=== PATIENT | female | born 1960 | race Caucasian/White ===

== ENCOUNTER → 2016-06-23 | Outpatient (CLI) | payer OTHER ==
[~2016-06-23] MED LIST: ASCO10003 PO; ATV5X PO; BND25CL PO; CELE1CAP28 PO; CHOL2000 PO; CLC100 PO; COEN1CAP37 PO; DIGO0.1219 PO; EFF/375 PO; FENT75DI2; FNTTP50 TD; GABA1CAP4 PO; HYDR-4383 PO; IPRA1AER2 INH; KRIL1000 PO; LACT1CAP6 PO; MAGNSOL13 PO; METO50TA7 PO; MISCCAP80 PO; MULT1CAP7 PO; MULTTAB58 PO; ONDA-63 PO; OSIM80TA PO; OXYC-164 PO; THY/30 PO; TMB100 PO; VENL150C56 PO; bumex; digoxin
--- NOTE | 2016-06-23 14:27 | DIAGNOSTIC IMAGING REPORT ---
PET/CT CLINICAL HISTORY: Non-small cell lung cancer. TECHNIQUE: A PET/CT was performed from the skull base through the upper thighs following intravenous injection of 14.49 mCi of F 18 FDG IV. The injection was performed at 10:25 AM on June 23, 2016 and imaging began at 11:51 AM on June 23, 2016. Unenhanced CT was performed for attenuation correction purposes and anatomic localization. COMPARISON STUDY: PET/CT March 15, 2016. FINDINGS: Head and neck: Several brain metastases are better depicted on MRI of the brain dated April 28, 2016. There is no suspicious FDG uptake within the cervical lymph nodes. A few prominent bilateral cervical lymph nodes are unchanged. Chest: Postsurgical findings within the left hemithorax with open left chest wall are again noted. Marked multifocal FDG uptake within the left pleura is similar to prior exam with an SUV max of approximately 10. Pleural thickening is unchanged since exam of March 15, 2016. Trace pleural fluid is similar to prior exam as well. A cavity within the left hemithorax is unchanged. Innumerable FDG avid right lung nodules are noted. The majority of these are unchanged since PET/CT of March 15, 2016. An index right middle lobe nodule shown on image 85 measures 1.3 cm. This is unchanged. An index right upper lobe nodule shown on image 64 measures 1.3 cm. It previously measured 1.2 cm. Mild FDG uptake within these nodules is similar to prior exam. A few additional nodules have slightly increased in size since prior exam. The SUV max for the nodule since 3.2, as before. Several mildly enlarged left axillary lymph nodes which demonstrate mild FDG uptake are similar to prior exam. Abdomen and Pelvis: The previously described left paraaortic lymph node shown on image 121 is similar size to prior exam. This has minimal FDG uptake. An IVC filter is in place. There are punctate left renal calculi. There is no evidence for a bowel obstruction. Musculoskeletal: A sclerotic FDG avid lesion within the proximal right femur is similar to prior exam with an SUV max of 6.5. No new skeletal metastases are identified. IMPRESSION: Minimal change since PET/CT of March 15, 2016. Minimal increase in size of a few right lung metastases since prior exam. Otherwise, no significant change. Stable postoperative appearance within the left hemithorax, as described above. No significant change in skeletal metastatic disease. Electronically signed by: Cecilio Cunningham M.D. 06/23/2016 2:25 PM Dictated Date/Time: 06/23/2016 1:46 PM
== END | disposition home or self-care (01) ==
LOC: C.PET 10:02
PROVIDERS: ATTEND Internal Medicine Hematology & Oncology
DX: C34.12 Malignant neoplasm of upper lobe, left bronchus or lung (principal)

== ENCOUNTER → 2016-06-29 | Outpatient (CLI) | payer OTHER ==
[2016-06-29 14:47] VITALS: BP 108/65; PULSE 71; TEMP 36.9; O2SAT 91
--- NOTE | 2016-06-29 17:29 | Radiation Oncology Follow-Up ---
Radiation Oncology Follow-Up Date of Visit Jun 29, 2016. Reason For Visit Annual follow-up Radiation Completion Date finished 04-12-14 to chest, and gamma knife to brain 04-01-15 Diagnosis (1) Lung cancer Status: Chronic Onset Date: 10/22/2013 Histology Subtype: adenocarcinoma Stage: IV Permanent Comment: 1. Hemoptysis 2. CT of chest 10/12/2013 showing a left suprahilar mass extending into the left hilum 3. Status post fiberoptic bronchoscopy 10/22/2013 showing complete obstruction of the left upper lobe bronchus, biopsy showing poorly differentiated adenocarcinoma, clinical stage [id number] 4. Patient chose homeopathic therapy and did not take Tarceva 5. Status post bronchoscopy and left thoracotomy, drainage of pleural fluid and decortication with talc pleurodesis 01/09/2014 6. Initiation of combined radiation and chemotherapy. Radiation began 2013 received 11 fractions. She received 3 weekly cycles of Taxol carboplatin. 7. Admission due to lung abscess status postthoracotomy, decortication, drainage of abscess above the diaphragm on 02/18/2014 8. Recovery and then reinitiation and completion of combined radiation and chemotherapy. Radiation completed 04/12/2014 received 7000 cG 9. Recurrent infections of abscess status post left thoracotomy with resection of ribs 8 and 9 and creation of open thoracotomy wound with skin flap, partial pulmonary decortication 09/16/2014 10. Brain metastasis 11. Status post gamma knife 04/01/2015 at [facility] 12. Systemic treatment with Tarceva, treatment stopped due to side effects 13. Systemic chemotherapy with Tagrisso Last Edited By: Asmita Guzman on Jun 29, 2016 17:13 History of Present Illness 55-year-old white female well known to our office from prior treatment. Initial treatment reviewed as above. More recently she was started on Tarceva. She began the medication 07/17/2014. She developed hemoptysis which steadily progressed. She developed mouth sores. She also had swelling of her hands with open wounds on her fingers. The medication was stopped on 08/05/2014. She unfortunately continued to have hemoptysis this will be mild streaking to dark red in color. She was seen by Dr. Collins and underwent a bronchoscopy 2014. There was complete occlusion of the left upper lobe bronchus just after the takeoff of the main upper lobe bronchus. Airway was occluded with scar tissue and friable malignancy. Small pinpoint hole could be noted to the lingular segment of the left upper lobe. Dr. Collins performed cryo-probe therapy. Biopsies were taken prior to the treatment. These biopsies were benign. Over the past week she has steadily felt increasing fatigue. The hemoptysis continues and she called Dr. Mandujano's office. He advised an evaluation at the emergency room. She was found to be anemic with a hemoglobin of 7.6. She was admitted for further observation and treatment. She has been transfused 2 units of blood. She states that she does feel improved. She is feeling stronger and the hemoptysis is less. Dr. Mandujano had sent her to [place] for an evaluation by Dr. Rivas. She was seen on August 27. From information obtained by the patient she stated he did not feel that she could undergo surgery due to the proximity of the mass to critical structures. On her last visit she had stated that she had not had follow-up MRI of the brain. This has been canceled and rescheduled on several occasions. Arrangements were made for her to have this done under anesthesia due to her severe claustrophobia. On 08/23/2014 she presented for her MRI and this was canceled. She stated that anesthesiology is concerned about aspiration. She was transferred to [facility] in [place]. She was seen by Dr. Harper. On 09/16/2014 he performed a bronchoscopy. This was followed by a left thoracotomy with resection of ribs 8 and 9, and creation of an open thoracotomy wound with skin flap. Partial pulmonary decortication. With undergoing this procedure she has had steady improvement in the cough with purulent sputum. Temperatures have remained down. She does continue to have drainage from the open wound site. She continues to be followed closely by Dr. Mandujano. There has been discussion of restart of Tarceva. She underwent recent PET scanning for restaging. She'll be having an MRI of the brain on Tuesday. She did restart systemic chemotherapy with Tarceva. This was poorly tolerated. It caused severe fatigue. Her recheck MRI showed metastatic lesions of the brain. She was referred to [facility]. On 04/01/2015 she had gamma knife treatment. She then took dexamethasone for 15 days following the treatment. She tolerated this very well area. She has had continue follow-up through Dr. Mandujano's office. She had a PET scan performed today and the results are pending. She also had a recheck MRI one week ago. She stated that this had shown some mild progression. A copy of the disc has been forwarded to [facility]. She is awaiting their recommendations. This was reviewed. And decision was that she did not need further radiation therapy to the brain at this time. Interim History Over this past year she is continue follow-up with medical oncology. She has had mixed responses on her follow-up PET scans. She is currently on Tagrisso 80 mg. She takes this every 3 days. She did not tolerate taking this daily. She developed sores on the inside of her mouth as well as on her lips in the corner of her mouth. These are currently stable. She has not developed any increase in respiratory symptoms. She has not developed any increase in neurologic symptoms. She is followed at [facility] for the metastatic brain disease. She states that she has MRIs of the brain every 2 months. There have been no changes for which repeat gamma knife therapy has been suggested. The most recent MRI was on 04/28/2016. Her appetite is good. She has had a 17 pound weight gain over the past year. Allergies Coded Allergies: No Known Allergies (Unverified , 11/18/14) Home Medications Scheduled Ascorbic Acid (Vitamin C), 2,000 MG PO DAILY Celecoxib (Celecoxib), 100 MG PO BID Cholecalciferol (Vitamin D3), 6,000 INTER.UNIT PO DAILY Coenzyme Q10 (Ubidecarenone) (Co Q-10), 400 MG PO DAILY Docusate Sodium (Docusate Sodium), 100 MG PO BID Fentanyl (Duragesic), 50 MCG TD [id number] Flecainide Acetate (Flecainide Acetate), 150 MG PO Q12 Gabapentin (Gabapentin), 600 MG PO TID Hydrocodone/Acetaminophen ([place] 10/325 Tab), 2 TABS PO Q4 Krill Oil (Krill Oil), 2 CAP PO DAILY Lactobacillus (Probiotic), 1 CAP PO TID Lorazepam (Lorazepam), 2 MG PO BID Ondansetron (Ondansetron HCl), 8 MG PO Q6H Osimertinib Mesylate (Tagrisso), 80 MG PO DIRECTED Oxycodone Hcl (Oxycodone Hcl), 30 MG PO UD Thyroid ([place] Thyroid), 60 MG PO DAILY Venlafaxine Hcl (Effexor Extended Rel), 1 CAP PO DAILY [Magnesium Citrate], 625 MG PO DAILY [digoxin], DAILY Scheduled PRN Diphenhydramine HCl (Diphenhydramine HCl), 50 MG PO HS PRN for Sleep Ipratropium-Albuterol (Combivent Respimat), 1 PUFF INH QID PRN for SOB/Wheezing Miscellaneous Medications [bumex] Review of Systems Gastrointestinal: Symptoms: Nausea, Constipation, Diarrhea GI Comments: alternates between diarrhea and constipation Oral: Symptoms: Mild Soreness Other Oral Symptoms: " small cuts in mouth from the oral chemo " Respiratory: Symptoms: SOB With Exertion Other Respiratory: has an oxygenator at home for sleep and as needed att home Urinary: Symptoms: Nocturia Comments: nocturia 1 - 2 times Skin: Other Skin Symptoms: "has a dry dressing over hole in chest under left arm ", Physical Exam Vital Signs Date Time Temp Pulse Resp B/P Pulse Ox O2 Delivery O2 Flow Rate FiO2 06/29/16 14:47 36.9 71 20 108/65 91 Pain: Side: Bilateral Patient Pain Scale: 0 - 10 Initial Pain Intensity: 1.0 Fatigue: None General Appearance: no apparent distress Eyes: normal inspection, EOMI ENT: normal ENT inspection, hearing grossly normal, + pertinent finding ( stomatitis and angular chelitis) Neck: no adenopathy, thyroid normal Respiratory/Chest: no respiratory distress, no accessory muscle use, + decreased breath sounds, + plerual rub Cardiovascular: regular rate, rhythm, no gallop, no murmur, + pertinent finding (intact dressing in the left and posterior lower thorax, without drainage) Extremities: no pedal edema Neurologic/Psychiatric: no motor/sensory deficits, alert, normal mood/affect Skin: warm/dry Lymphatic: no adenopathy Laboratory Studies Test 06/29/16 16:00 White Blood Count 7.48 K/uL (4.8-10.8) Red Blood Count 4.09 M/uL (4.2-5.4) Hemoglobin 10.1 g/dL (12.0-16.0) Hematocrit 33.3 % (37-47) Mean Corpuscular Volume 81.4 fL (80-100) Mean Corpuscular Hemoglobin 24.7 pg (25-34) Mean Corpuscular Hemoglobin Concent 30.3 g/dl (32-36) Platelet Count 327 K/uL (130-400) Mean Platelet Volume 9.8 fL (7.4-10.4) Neutrophils (%) (Auto) 67.5 % Lymphocytes (%) (Auto) 20.5 % Monocytes (%) (Auto) 7.5 % Eosinophils (%) (Auto) 4.1 % Basophils (%) (Auto) 0.3 % Neutrophils # (Auto) 5.05 K/uL (1.4-6.5) Lymphocytes # (Auto) 1.53 K/uL (1.2-3.4) Monocytes # (Auto) 0.56 K/uL (0.11-0.59) Eosinophils # (Auto) 0.31 K/uL (0-0.5) Basophils # (Auto) 0.02 K/uL (0-0.2) RDW Standard Deviation 49.8 fL (36.4-46.3) RDW Coefficient of Variation 16.5 % (11.5-14.5) Immature Granulocyte % (Auto) 0.1 % Immature Granulocyte # (Auto) 0.01 K/uL (0.00-0.02) Sodium Level 139 mmol/L (136-145) Potassium Level 4.5 mmol/L (3.5-5.1) Chloride Level 99 mmol/L (98-107) Carbon Dioxide Level 33 mmol/L (21-32) Anion Gap 7.0 mmol/L (3-11) Blood Urea Nitrogen 15 mg/dl (7-18) Creatinine 0.70 mg/dl (0.60-1.20) Est Creatinine Clear Calc Drug Dose 102.4 ml/min Estimated GFR () 114.6 Estimated GFR (Non- 98.9 BUN/Creatinine Ratio 22.0 (10-20) Random Glucose 95 mg/dl (70-99) Calcium Level 8.8 mg/dl (8.5-10.1) Total Bilirubin 0.2 mg/dl (0.2-1) Aspartate Amino Transferase (AST) 11 U/L (15-37) Alanine Aminotransferase (ALT) 17 U/L (12-78) Alkaline Phosphatase 137 U/L (45-117) Total Protein 7.9 gm/dl (6.4-8.2) Albumin 3.2 gm/dl (3.4-5.0) Globulin 4.7 gm/dl (2.5-4.0) Albumin/Globulin Ratio 0.7 (0.9-2) Additional Studies PET/CT CLINICAL HISTORY: Non-small cell lung cancer. TECHNIQUE: A PET/CT was performed from the skull base through the upper thighs following intravenous injection of 14.49 mCi of F 18 FDG IV. The injection was performed at 10:25 AM on June 23, 2016 and imaging began at 11:51 AM on June 23, 2016. Unenhanced CT was performed for attenuation correction purposes and anatomic localization. COMPARISON STUDY: PET/CT March 15, 2016. FINDINGS: Head and neck: Several brain metastases are better depicted on MRI of the brain dated April 28, 2016. There is no suspicious FDG uptake within the cervical lymph nodes. A few prominent bilateral cervical lymph nodes are unchanged. Chest: Postsurgical findings within the left hemithorax with open left chest wall are again noted. Marked multifocal FDG uptake within the left pleura is similar to prior exam with an SUV max of approximately 10. Pleural thickening is unchanged since exam of March 15, 2016. Trace pleural fluid is similar to prior exam as well. A cavity within the left hemithorax is unchanged. Innumerable FDG avid right lung nodules are noted. The majority of these are unchanged since PET/CT of March 15, 2016. An index right middle lobe nodule shown on image 85 measures 1.3 cm. This is unchanged. An index right upper lobe nodule shown on image 64 measures 1.3 cm. It previously measured 1.2 cm. Mild FDG uptake within these nodules is similar to prior exam. A few additional nodules have slightly increased in size since prior exam. The SUV max for the nodule since 3.2, as before. Several mildly enlarged left axillary lymph nodes which demonstrate mild FDG uptake are similar to prior exam. Abdomen and Pelvis: The previously described left paraaortic lymph node shown on image 121 is similar size to prior exam. This has minimal FDG uptake. An IVC filter is in place. There are punctate left renal calculi. There is no evidence for a bowel obstruction. Musculoskeletal: A sclerotic FDG avid lesion within the proximal right femur is similar to prior exam with an SUV max of 6.5. No new skeletal metastases are identified. IMPRESSION: Minimal change since PET/CT of March 15, 2016. Minimal increase in size of a few right lung metastases since prior exam. Otherwise, no significant change. Stable postoperative appearance within the left hemithorax, as described above. No significant change in skeletal metastatic disease. Electronically signed by: Cecilio Cunningham M.D. 06/23/2016 2:25 PM Dictated Date/Time: 06/23/2016 1:46 PM MRI OF THE BRAIN WITHOUT AND WITH IV CONTRAST CLINICAL HISTORY: Metastatic lung carcinoma. Gamma knife therapy. COMPARISON STUDY: MRI of the brain January 19, 2016 TECHNIQUE: Utilizing a 1.5 Olive magnet and dedicated coil, multiplanar, multiecho imaging of the brain was performed pre and postcontrast administration. IV administration of 10 mL of Gadavist contrast was uneventful. FINDINGS: There are no areas of restricted diffusion. No acute intracranial hemorrhage is present. Ventricular system is stable. The basilar cisterns are patent. There are no extra-axial collections. Flow-voids for the major intracranial vessels are present. Multiple supratentorial and infratentorial ring-enhancing parenchymal lesions are again noted. No new lesions are identified when compared to exam of January 19, 2016. The largest lesion within the right cerebellar hemisphere measures 1.6 cm on this exam. It previously measured 1.7 cm. Associated vasogenic edema has slightly improved. A 0.6 cm lesion within the right cerebellar hemisphere shown on axial image 17 has slightly decreased in size since prior exam. It previously measured 0.7 cm. A lesion within the left cerebellar hemisphere now measures 1.3 cm. It previously measured 1.2 cm. Vasogenic edema has slightly increased. A 1.1 cm left temporal lobe lesion shown on axial image 10 has slightly increased in size since prior exam. It previously measured 1 cm. A 0.8 cm left frontal lobe lesion shown on image 14 has slightly increased in size since prior exam. A 0.7 cm right frontal lobe lesion shown on image 16 has slightly increased in size. Calvarial signal is maintained. This study is mildly compromised by motion artifact. IMPRESSION: Findings suggestive of a mixed treatment response in supratentorial and infratentorial metastases since MRI of January 19, 2016. Two metastases within the right cerebellar hemisphere have decreased in size, enhancement and associated vasogenic edema since prior exam. The remainder of the metastases have slightly increased in size and associated vasogenic edema has mildly increased since prior exam. Electronically signed by: Cecilio Cunningham M.D. 04/28/2016 2:45 PM Assessment & Plan Plan: Continue regular follow-up with medical oncology. She'll be seeing Dr. Townsend tomorrow. She can further review the PET CT findings with him. She stated that she will be due for her recheck MRI of the brain. She has a order for this from Dr. Campbell at [facility]. I've asked her to bring that order with her when she sees Dr. Townsend tomorrow. There are office may facilitate ordering the study. In the past there have been discussion of whole brain therapy. She is pleased to continue the follow-up with [facility] and recheck MRIs. She prefers gamma knife therapy should there be any lesions in need of treatment. We asked her to return to our office in 1 year. She may call if she has any questions or concerns in the interim. She is going to try harder to watch her diet due to the noted weight gain. She may also return to our office if recommended by Dr. Campbell or Dr. Townsend. Total Time In Follow-Up I spent 25 minutes speaking to the patient performing examination. I spent 15 minutes reviewing information in completing this note. Copy To Daniel Campbell MD; Sridhar Townsend D.O.; Kiley Morton MD Problem Qualifiers (1) Lung cancer: Laterality: left Lung location: upper lobe of lung Qualified Codes: C34.12 - Malignant neoplasm of upper lobe, left bronchus or lung
== END | disposition home or self-care (01) ==
LOC: C.ONC 14:41
PROVIDERS: ATTEND Radiology Radiation Oncology
DX: Z08 Encounter for follow-up examination after completed treatment for malignant neoplasm (principal); Z92.3 Personal history of irradiation; Z85.118 Personal history of other malignant neoplasm of bronchus and lung

== ENCOUNTER → 2016-10-08 | Outpatient (CLI) | payer OTHER ==
[~2016-10-08] MED LIST changes: -BND25CL PO; +DIPH25CA48 PO; -EFF/375 PO; -FENT75DI2; -METO50TA7 PO; -MULT1CAP7 PO
[2016-10-08 19:38] LABS: BASO % 0.3 %; BASO ABS # 0.02 K/uL (0-0.2); COMPLETE YES; EOS % 4.5 %; HEMATOCRIT 31.8 % (37-47); IG% 0.1 %; LYMPH % 17.1 %; LYMPH ABS # 1.22 K/uL (1.2-3.4); MEAN CELL VOLUME 81.1 fL (80-100); MEAN CORPUSCULAR HGB CONC 29.6 g/dl (32-36); MEAN PLATELET VOLUME 9.5 fL (7.4-10.4); MONO % 6.6 %; NEUT % 71.4 %; PLATELET COUNT 391 K/uL (130-400); RED BLOOD COUNT 3.92 M/uL (4.2-5.4); WHITE BLOOD COUNT 7.13 K/uL (4.8-10.8)
[2016-10-08 20:04] LABS: ALT/SGPT 21 U/L (12-78); AST/SGOT 12 U/L (15-37); BLOOD UREA NITROGEN 12 mg/dl (7-18); BUN/CREATININE RATIO 17.4 (10-20); CALCIUM 8.5 mg/dl (8.5-10.1); CARBON DIOXIDE 32 mmol/L (21-32); CHLORIDE 104 mmol/L (98-107); GLUCOSE 85 mg/dl (70-99); POTASSIUM 4.3 mmol/L (3.5-5.1); SODIUM 141 mmol/L (136-145)
[2016-10-08 20:06] LABS: ALB/GLOB RATIO 0.7 (0.9-2); ALKALINE PHOSPHATASE 158 U/L (45-117)
== END | disposition home or self-care (01) ==
LOC: C.LAB 19:02
PROVIDERS: ATTEND Internal Medicine Hematology & Oncology
DX: T14.8 Other injury of unspecified body region (principal); X58.XXXA Exposure to other specified factors, initial encounter

== ENCOUNTER → 2016-10-11 | Outpatient (CLI) | payer OTHER ==
--- NOTE | 2016-10-11 16:10 | DIAGNOSTIC IMAGING REPORT ---
LEFT HAND 3 VIEWS CLINICAL HISTORY: Left thumb pain. FINDINGS: 3 views of left hand are obtained. No prior studies are available for comparison at the time of dictation. The skeletal structures are osteopenic. No fracture is seen. There is mild osteoarthritic change present at the first carpometacarpal joint. Minimal osteoarthritic change is seen involving the interphalangeal joints. The overlying soft tissues are within normal limits. IMPRESSION: 1. No acute bony abnormality is seen in the left hand. 2. Mild arthritic change as above, greatest at the first carpometacarpal articulation. Electronically signed by: Darian Elder M.D. 10/11/2016 4:09 PM Dictated Date/Time: 10/11/2016 4:07 PM
== END | disposition home or self-care (01) ==
LOC: C.RAD 15:42
PROVIDERS: ATTEND Internal Medicine Hematology & Oncology
DX: C34.12 Malignant neoplasm of upper lobe, left bronchus or lung (principal); M79.645 Pain in left finger(s)

== ENCOUNTER → 2016-10-27 | Outpatient (CLI) | payer OTHER ==
--- NOTE | 2016-10-27 10:48 | DIAGNOSTIC IMAGING REPORT ---
PET/CT HISTORY: Lung carcinoma NON SMALL CELL LUNG CANCER TECHNIQUE: PET/CT was performed from the base of the skull through the pelvis following the intravenous administration of 15.4 mCi of F18-FDG. Non-contrast CT imaging was performed over the same range without breath-hold for attenuation correction of PET images and anatomic correlation, but not for primary interpretation as it is not of standard diagnostic quality. CT DOSE: COMPARISON: 06/23/2016 FINDINGS: HEAD AND NECK: There is no FDG-avid disease or significant lymphadenopathy in the imaged portions of the head and the neck. CHEST: Postoperative changes left lung base are stable. Large open wound channel is again noted again appear unchanged. Diffuse nodularity throughout the right hemithorax is slightly progressive primarily in the mid to upper lung regions. A sample sentinel node in the right upper lobe has gone from 1. 321.5 cm. SUV characteristics are similar. There are several small additional nodules on the right pulmonary apical region. Right middle lobe nodular density is increased from 1. 321.5 cm. All nodules show a moderate level of activity which is unchanged. There has been of very subtle increase in metabolic activity adjacent to the wound channel left lung base SUV characteristics of increased from 4 to approximately 8 area a correlate of change in the few CT, however is not appreciated. Abdomen/pelvis: Physiologic activity within the gastrointestinal and genitourinary tracts. Physiologic activity within the urinary bladder. Nonobstructive bowel pattern. MUSCULOSKELETAL: No change in the focus of increased activity proximal right femur IMPRESSION: 1. Slightly progressive disease involving the right hemithorax and to a lesser extent left base. 2. Nodularity of the right hemithorax has shown a slight progression in number as well as size, although metabolic activity characteristics are similar. 3. Slight increase in metabolic activity at the margins of the open wound channel left lung base. 4. All remaining components of the study are stable Electronically signed by: Jerry Resendiz M.D. 10/27/2016 10:46 AM Dictated Date/Time: 10/27/2016 10:31 AM
== END | disposition home or self-care (01) ==
LOC: C.PET 08:17
PROVIDERS: ATTEND Internal Medicine Hematology & Oncology
DX: C34.12 Malignant neoplasm of upper lobe, left bronchus or lung (principal)

== ENCOUNTER → 2016-11-18 | Outpatient (CLI) | payer OTHER ==
[~2016-11-18] MED LIST changes: +BND25CL PO; -DIPH25CA48 PO
--- NOTE | 2016-11-18 17:09 | DIAGNOSTIC IMAGING REPORT ---
WHOLE-BODY NUCLEAR BONE SCAN CLINICAL HISTORY: Non-small cell lung cancer. COMPARISON STUDY: PET/CT dated 10/27/2016. TECHNIQUE: Three hours following the IV administration of 27.2 mCi of technetium 99m MDP, whole body nuclear bone scan was performed in the anterior and posterior projections. FINDINGS: There is is a large focus of abnormal tracer deposition identified in the right proximal femur. This corresponds to a large osteoblastic metastasis seen by PET. There is a small focus of activity identified in the left femoral diaphysis. This is also consistent with bony metastatic disease. Increased activity within left posterior ribs is also likely related to metastatic disease. Typically degenerative uptake is identified in the shoulders, knees, and feet. Activity is identified in the ankles, left significantly greater than right. Mild anterior degenerative activity is seen in the thoracic spine. There is mild thoracic scoliosis. Asymmetric activity in the sacroiliac joints likely corresponds to significant sclerotic degenerative change when correlated with the CT images. A photopenic defect identified involving the left posterior ribs is likely on a postoperative basis when correlated with the CT findings. There is expected excreted activity within the renal collecting system and bladder. IMPRESSION: 1. There are metastatic lesions identified in the right proximal femur and the left mid femur. 2. Postoperative change and bony involvement is also suggested in the left posterior ribs. 3. There is significantly asymmetric activity in the left ankle is compared to the right. This likely corresponds to degenerative change. Consider radiographic correlation if there is concern for metastatic involvement. Electronically signed by: Darian Elder M.D. 11/18/2016 5:07 PM Dictated Date/Time: 11/18/2016 4:59 PM
== END | disposition home or self-care (01) ==
LOC: C.NUCL 13:00
PROVIDERS: ATTEND Internal Medicine Hematology & Oncology
DX: C34.12 Malignant neoplasm of upper lobe, left bronchus or lung (principal); C79.51 Secondary malignant neoplasm of bone

== ENCOUNTER → 2016-11-23 | Outpatient (CLI) | payer OTHER ==
--- NOTE | 2016-11-23 15:52 | DIAGNOSTIC IMAGING REPORT ---
RIGHT FOOT MIN 3 VIEWS ROUTINE CLINICAL HISTORY: M79.609 M25.572 M79.671 Right pain COMPARISON: None. DISCUSSION: Small heel spur. No acute bony abnormality. No evidence for acute fracture or dislocation. Small heel spur. There is no evidence for soft tissue swelling. IMPRESSION: Small heel spur. Otherwise negative study. The above report was generated using voice recognition software. It may contain grammatical, syntax or spelling errors. Electronically signed by: Jerry Resendiz M.D. 11/23/2016 3:51 PM Dictated Date/Time: 11/23/2016 3:49 PM
--- NOTE | 2016-11-23 15:54 | DIAGNOSTIC IMAGING REPORT ---
LEFT ANKLE MIN 3 VIEWS ROUTINE CLINICAL HISTORY: Left ankle pain. Lung cancer with skeletal metastases. COMPARISON: Left ankle radiograph January 03, 2014. FINDINGS: Alignment of the left ankle is anatomic. No acute fractures are identified. A 1.1 cm lucency with adjacent sclerosis of the medial talar dome is unchanged since exam of January 03, 2014. There is soft tissue swelling. No suspicious osseous lesion is present. There is talar beaking. An os trigonum is present. IMPRESSION: 1. No acute fracture or dislocation of the left ankle. 2. Old osteochondral defect within the medial talar dome which is similar in appearance to exam of January 03, 2014. Electronically signed by: Cecilio Cunningham M.D. 11/23/2016 3:53 PM Dictated Date/Time: 11/23/2016 3:50 PM
== END | disposition home or self-care (01) ==
LOC: C.RAD 15:13
PROVIDERS: ATTEND Physician Assistant Medical
DX: M25.572 Pain in left ankle and joints of left foot (principal); C34.12 Malignant neoplasm of upper lobe, left bronchus or lung; C79.51 Secondary malignant neoplasm of bone

== ENCOUNTER → 2017-01-06 | Outpatient (CLI) | payer OTHER ==
[~2017-01-06] MED LIST changes: +GADAVIST IV PRN; -LACT1CAP6 PO; -bumex; -digoxin
--- NOTE | 2017-01-06 15:15 | DIAGNOSTIC IMAGING REPORT ---
BRAIN COMBO CLINICAL HISTORY: 56 years-old Female presenting with LUNG CA W/BRAIN METS, status post gamma knife surgery March 28, 2015. TECHNIQUE: Multisequence, multiplanar MR imaging of the brain was performed before and after the administration of intravenous contrast. IV contrast: 10 mm of Gadavist. COMPARISON: 09/09/2016. FINDINGS: Ventricles and sulci normal in size. Focal region of T2 hyperintensity within the white matter underlying the right frontal cortex, unchanged. Additional multifocal T2/FLAIR hyperintense lesions in the supratentorial and infratentorial brain in a similar distribution as on prior exam. Many of these lesions demonstrate enhancement as on prior exam. One subtle lesion in the right paramedian occipital lobe has increased in size, now measuring 4 to 6 mm, previously 3 to 4 mm (series 10 image 12; series 11 image 23). No mass effect or midline shift. No restricted diffusion to suggest acute ischemia. No hemorrhage. No extra-axial fluid collection. Paranasal sinuses and mastoid air cells clear. Calvarium intact. T2 skull base flow voids preserved. Bone marrow signal intensity within the calvarium within normal limits. IMPRESSION: Persistent findings of multifocal metastases in the supratentorial and infratentorial parenchyma. The vast majority of these are stable from prior exam. One subtle lesion in the right paramedian occipital lobe may have increased in size minimally from prior. No convincing evidence of a new lesion. Electronically signed by: Cristino Bae M.D. 01/06/2017 3:13 PM Dictated Date/Time: 01/06/2017 3:03 PM
== END | disposition home or self-care (01) ==
PROVIDERS: ATTEND Internal Medicine Hematology & Oncology
DX: C34.12 Malignant neoplasm of upper lobe, left bronchus or lung (principal)

== ENCOUNTER → 2017-01-13 | Outpatient (CLI) | payer OTHER ==
[~2017-01-13] MED LIST changes: -GADAVIST IV PRN
[2017-01-13 15:08] VITALS: BP 104/71; PULSE 75; TEMP 36.7; O2SAT 93
--- NOTE | 2017-01-13 16:29 | Radiation Oncology Follow-Up ---
Radiation Oncology Follow-Up Date of Visit Jan 13, 2017. Reason For Visit One-month follow-up Radiation Completion Date 12/08/16 Diagnosis (1) Lung cancer Status: Chronic Onset Date: 10/22/2013 Histology Subtype: metastasis to the right hip Stage: IV Permanent Comment: 1. Hemoptysis 2. CT of chest 10/12/2013 showing a left suprahilar mass extending into the left hilum 3. Status post fiberoptic bronchoscopy 10/22/2013 showing complete obstruction of the left upper lobe bronchus, biopsy showing poorly differentiated adenocarcinoma, clinical stage [id number] 4. Patient chose homeopathic therapy and did not take Tarceva 5. Status post bronchoscopy and left thoracotomy, drainage of pleural fluid and decortication with talc pleurodesis 01/09/2014 6. Initiation of combined radiation and chemotherapy. Radiation began 2013 received 11 fractions. She received 3 weekly cycles of Taxol carboplatin. 7. Admission due to lung abscess status postthoracotomy, decortication, drainage of abscess above the diaphragm on 02/18/2014 8. Recovery and then reinitiation and completion of combined radiation and chemotherapy. Radiation completed 04/12/2014 received 7000 cG 9. Recurrent infections of abscess status post left thoracotomy with resection of ribs 8 and 9 and creation of open thoracotomy wound with skin flap, partial pulmonary decortication 09/16/2014 10. Brain metastasis 11. Status post gamma knife 04/01/2015 at [facility] 12. Systemic treatment with Tarceva, treatment stopped due to side effects 13. Systemic chemotherapy with Tagrisso 14. Right groin pain with finding of bone metastasis 15. Status post completion of radiation therapy to the right hip 12/08/2016 received 3000 cGy. Last Edited By: Asmita Guzman on Dec 17, 2016 09:42 History of Present Illness This is a 56 year-old white female well known to our office from prior treatment. Initial treatment reviewed as above. More recently she was started on Tarceva. She began the medication 07/17/2014. She developed hemoptysis which steadily progressed. She developed mouth sores. She also had swelling of her hands with open wounds on her fingers. The medication was stopped on 08/05/2014. She unfortunately continued to have hemoptysis this will be mild streaking to dark red in color. She was seen by Dr. Collins and underwent a bronchoscopy 08/25/2014. There was complete occlusion of the left upper lobe bronchus just after the takeoff of the main upper lobe bronchus. Airway was occluded with scar tissue and friable malignancy. Small pinpoint hole could be noted to the lingular segment of the left upper lobe. Dr. Collins performed cryo-probe therapy. Biopsies were taken prior to the treatment. These biopsies were benign. Over the past week she has steadily felt increasing fatigue. The hemoptysis continues and she called Dr. Mandujano's office. He advised an evaluation at the emergency room. She was found to be anemic with a hemoglobin of 7.6. She was admitted for further observation and treatment. She has been transfused 2 units of blood. She states that she does feel improved. She is feeling stronger and the hemoptysis is less. Dr. Mandujano had sent her to [place] for an evaluation by Dr. Rivas. She was seen on August 27. From information obtained by the patient she stated he did not feel that she could undergo surgery due to the proximity of the mass to critical structures. On her last visit she had stated that she had not had follow-up MRI of the brain. This has been canceled and rescheduled on several occasions. Arrangements were made for her to have this done under anesthesia due to her severe claustrophobia. On 08/23/2014 she presented for her MRI and this was canceled. She stated that anesthesiology is concerned about aspiration. She was transferred to [facility] in [place]. She was seen by Dr. Harper. On 09/16/2014 he performed a bronchoscopy. This was followed by a left thoracotomy with resection of ribs 8 and 9, and creation of an open thoracotomy wound with skin flap. Partial pulmonary decortication. With undergoing this procedure she has had steady improvement in the cough with purulent sputum. Temperatures have remained down. She does continue to have drainage from the open wound site. She continues to be followed closely by Dr. Mandujano. There has been discussion of restart of Tarceva. She underwent recent PET scanning for restaging. She'll be having an MRI of the brain on Tuesday. 55-year-old white female well known to our office from prior treatment. Initial treatment reviewed as above. More recently she was started on Tarceva. She began the medication 07/17/2014. She developed hemoptysis which steadily progressed. She developed mouth sores. She also had swelling of her hands with open wounds on her fingers. The medication was stopped on 08/05/2014. She unfortunately continued to have hemoptysis this will be mild streaking to dark red in color. She was seen by Dr. Collins and underwent a bronchoscopy 08/25/2014. There was complete occlusion of the left upper lobe bronchus just after the takeoff of the main upper lobe bronchus. Airway was occluded with scar tissue and friable malignancy. Small pinpoint hole could be noted to the lingular segment of the left upper lobe. Dr. Collins performed cryo-probe therapy. Biopsies were taken prior to the treatment. These biopsies were benign. Over the past week she has steadily felt increasing fatigue. The hemoptysis continues and she called Dr. Mandujano's office. He advised an evaluation at the emergency room. She was found to be anemic with a hemoglobin of 7.6. She was admitted for further observation and treatment. She has been transfused 2 units of blood. She states that she does feel improved. She is feeling stronger and the hemoptysis is less. Dr. Mandujano had sent her to [place] for an evaluation by Dr. Rivas. She was seen on August 27. From information obtained by the patient she stated he did not feel that she could undergo surgery due to the proximity of the mass to critical structures. On her last visit she had stated that she had not had follow-up MRI of the brain. This has been canceled and rescheduled on several occasions. Arrangements were made for her to have this done under anesthesia due to her severe claustrophobia. On 08/23/2014 she presented for her MRI and this was canceled. She stated that anesthesiology is concerned about aspiration. She was transferred to [facility] in [place]. She was seen by Dr. Harper. On 09/16/2014 he performed a bronchoscopy. This was followed by a left thoracotomy with resection of ribs 8 and 9, and creation of an open thoracotomy wound with skin flap. Partial pulmonary decortication. With undergoing this procedure she has had steady improvement in the cough with purulent sputum. Temperatures have remained down. She does continue to have drainage from the open wound site. She continues to be followed closely by Dr. Mandujano. There has been discussion of restart of Tarceva. She underwent recent PET scanning for restaging. She'll be having an MRI of the brain on Tuesday. She did restart systemic chemotherapy with Tarceva. This was poorly tolerated. It caused severe fatigue. Her recheck MRI showed metastatic lesions of the brain. She was referred to [facility]. On 04/01/2015 she had gamma knife treatment. She then took dexamethasone for 15 days following the treatment. She tolerated this very well area. She has had continue follow-up through Dr. Mandujano's office. She had a PET scan performed today and the results are pending. She also had a recheck MRI one week ago. She stated that this had shown some mild progression. A copy of the disc has been forwarded to [facility]. She is awaiting their recommendations. This was reviewed. And decision was that she did not need further radiation therapy to the brain at this time. She continues regular follow-up at [facility] in regards to the gamma knife treatment. She has now developed pain in the right anterior groin. A bone scan was ordered and performed on 11/18/2016. There are metastatic lesions identified in the right proximal femur and the left mid femur. Postoperative change and bony involvement is also suggested in the left posterior ribs. There is significant asymmetric activity in the left ankle compared to the right. This likely corresponds to degenerative change. Consider radiographic correlation if there is concern for metastatic involvement. The groin pain can be up to a 9 with weightbearing. She is on a regimen of pain medications. She has been having discomfort in her left ankle and heel also. She is seen a local precision farming coordinator. She has had orthotics ordered. She needs to pick them up. Due to the findings of the bone scan and the groin pain she was referred to our office to discuss radiation therapy. She completed radiation therapy to the right hip on 12/08/2016. She received 3000 cGy. Interim History Over the past month she has had improvement in the pain of her right hip. She now gives us a level 3-4. She is followed by pain management and feels that her multiple other pains are currently controlled. She is taking her chemotherapy pill every other day. Previously it was every 3 days. She does have increased mouth sores and ulcerations from the medication. She is followed closely by medical oncology. She stated that she'll be having a PET scan next month. She did have a brain MRI 01/06/2017. This was done in preparation for a recheck visit that you [place]. We did review the findings. There is persistent multifocal metastasis in the supratentorial and infratentorial parenchyma. The vast majority of these are stable from prior exam. One subtle lesion in the right paramedian occipital lobe may have increased in size minimally from prior. No convincing evidence of a new lesion. She noticed an area of redness of the middle of her back. This occurred approximately 2 weeks ago. There is been no drainage and no blistering. Allergies Coded Allergies: No Known Allergies (Unverified , 11/18/14) Home Medications Scheduled Ascorbic Acid (Vitamin C), 2,000 MG PO DAILY Celecoxib (Celecoxib), 100 MG PO BID Cholecalciferol (Vitamin D3), 6,000 INTER.UNIT PO DAILY Coenzyme Q10 (Ubidecarenone) (Co Q-10), 400 MG PO DAILY Digoxin (Digox), 1 TAB PO DAILY Docusate Sodium (Docusate Sodium), 100 MG PO BID Fentanyl (Duragesic), 50 MCG TD [id number] Flecainide Acetate (Flecainide Acetate), 150 MG PO Q12 Gabapentin (Gabapentin), 600 MG PO TID Hydrocodone/Acetaminophen ([place] 10/325 Tab), 2 TABS PO Q4 Krill Oil (Krill Oil), 2 CAP PO DAILY Lorazepam (Lorazepam), 2 MG PO BID Multiple Vitamin (Multivitamin), 1 TAB PO DAILY Osimertinib Mesylate (Tagrisso), 80 MG PO Q2D Probiotic Product (Probiotic), 1 CAP PO DAILY Thyroid ([place] Thyroid), 60 MG PO DAILY Venlafaxine Hcl (Effexor Extended Rel), 1 CAP PO DAILY [Magnesium Citrate], 625 MG PO DAILY Scheduled PRN Diphenhydramine HCl (Diphenhydramine HCl), 50 MG PO HS PRN for Sleep Ipratropium-Albuterol (Combivent Respimat), 1 PUFF INH QID PRN for SOB/Wheezing Ondansetron (Ondansetron HCl), 8 MG PO Q12 PRN for Nausea or Vomiting Oxycodone Hcl (Oxycodone Hcl), 10 MG PO Q3H PRN for Pain Review of Systems Gastrointestinal: Symptoms: WNL, Constipation, Diarrhea GI Comments: "Nausea once in a while" - Goes between diarrhea/constipation Oral: Symptoms: No Problems Other Oral Symptoms: "thousands of little paper cuts in mouth and on lips" from chemo Respiratory: Symptoms: WNL, SOB With Exertion Other Respiratory: Occsaionally gets it with humid weather with inactivity Urinary: Symptoms: WNL Skin: Symptoms: No Problems Other Skin Symptoms: Tx area good - patient has reddend area between shoulders on upper back Physical Exam Vital Signs Date Time Temp Pulse Resp B/P (MAP) Pulse Ox O2 Delivery O2 Flow Rate FiO2 01/13/17 15:08 36.7 75 16 104/71 93 Fatigue: None General Appearance: no apparent distress Eyes: normal inspection, EOMI ENT: normal ENT inspection, + pertinent finding (perioral erythema) Respiratory/Chest: no respiratory distress, no accessory muscle use, + pertinent finding (minimal breath sounds in the left mid and lower lobe area.) Cardiovascular: regular rate, rhythm, no gallop, no murmur Extremities: + pertinent finding (mild tenderness of the right greater trochanteric area) Neurologic/Psychiatric: no motor/sensory deficits, alert, normal mood/affect Skin: + pertinent finding (she has a excoriated area of the central back. There is dry eschar was signs of healing.) Laboratory Studies Test 12/10/16 15:20 White Blood Count 6.05 K/uL (4.8-10.8) Red Blood Count 3.91 M/uL (4.2-5.4) Hemoglobin 9.4 g/dL (12.0-16.0) Hematocrit 31.9 % (37-47) Mean Corpuscular Volume 81.6 fL (80-100) Mean Corpuscular Hemoglobin 24.0 pg (25-34) Mean Corpuscular Hemoglobin Concent 29.5 g/dl (32-36) Platelet Count 288 K/uL (130-400) Mean Platelet Volume 8.8 fL (7.4-10.4) Neutrophils (%) (Auto) 74.0 % Lymphocytes (%) (Auto) 14.0 % Monocytes (%) (Auto) 8.6 % Eosinophils (%) (Auto) 3.0 % Basophils (%) (Auto) 0.2 % Neutrophils # (Auto) 4.48 K/uL (1.4-6.5) Lymphocytes # (Auto) 0.85 K/uL (1.2-3.4) Monocytes # (Auto) 0.52 K/uL (0.11-0.59) Eosinophils # (Auto) 0.18 K/uL (0-0.5) Basophils # (Auto) 0.01 K/uL (0-0.2) RDW Standard Deviation 51.7 fL (36.4-46.3) RDW Coefficient of Variation 17.3 % (11.5-14.5) Immature Granulocyte % (Auto) 0.2 % Immature Granulocyte # (Auto) 0.01 K/uL (0.00-0.02) Sodium Level 141 mmol/L (136-145) Potassium Level 4.1 mmol/L (3.5-5.1) Chloride Level 104 mmol/L (98-107) Carbon Dioxide Level 32 mmol/L (21-32) Anion Gap 5.0 mmol/L (3-11) Blood Urea Nitrogen 17 mg/dl (7-18) Creatinine 0.75 mg/dl (0.60-1.20) Est Creatinine Clear Calc Drug Dose 94.5 ml/min Estimated GFR () 104.7 Estimated GFR (Non- 90.4 BUN/Creatinine Ratio 23.2 (10-20) Random Glucose 106 mg/dl (70-99) Calcium Level 8.9 mg/dl (8.5-10.1) Total Bilirubin < 0.1 mg/dl (0.2-1) Aspartate Amino Transferase (AST) 14 U/L (15-37) Alanine Aminotransferase (ALT) 19 U/L (12-78) Alkaline Phosphatase 123 U/L (45-117) Total Protein 7.3 gm/dl (6.4-8.2) Albumin 2.9 gm/dl (3.4-5.0) Globulin 4.4 gm/dl (2.5-4.0) Albumin/Globulin Ratio 0.7 (0.9-2) Additional Studies Patient: AUGIE CRUZ Address1: [address] Rec: [id number] Address2: Acct ID: [id number] [facility] Zip: [place] [address] Date: 1960 Sex: F Room/Bed: Ref Phy: Kiley Morton MD SC: C.MRIBC Att Phy: Sridhar Townsend D.O. Report #: [id number] Vivien Phy: Kiley Morton MD Test: [facility] Admit Phy: Printing Film Stripper: ANICETO Interpreting Phy: Cristino Bae MD Diagnosis: LUNG CA W/BRAIN METS Ordering Phy: Sridhar Townsend D.O. Service Date: 01/06/17 Admit Date: 01/06/17 MNE: [id number] CONF: DICTATED BY: Cristino Bae MD]] CC: Sridhar Townsend D.O., Tania S., MD Endcc: [~ rep ct add3]] BRAIN COMBO CLINICAL HISTORY: 56 years-old Female presenting with LUNG CA W/BRAIN METS, status post gamma knife surgery March 28, 2015. TECHNIQUE: Multisequence, multiplanar MR imaging of the brain was performed before and after the administration of intravenous contrast. IV contrast: 10 mm of Gadavist. COMPARISON: 09/09/2016. FINDINGS: Ventricles and sulci normal in size. Focal region of T2 hyperintensity within the white matter underlying the right frontal cortex, unchanged. Additional multifocal T2/FLAIR hyperintense lesions in the supratentorial and infratentorial brain in a similar distribution as on prior exam. Many of these lesions demonstrate enhancement as on prior exam. One subtle lesion in the right paramedian occipital lobe has increased in size, now measuring 4 to 6 mm, previously 3 to 4 mm (series 10 image 12; series 11 image 23). No mass effect or midline shift. No restricted diffusion to suggest acute ischemia. No hemorrhage. No extra-axial fluid collection. Paranasal sinuses and mastoid air cells clear. Calvarium intact. T2 skull base flow voids preserved. Bone marrow signal intensity within the calvarium within normal limits. IMPRESSION: Persistent findings of multifocal metastases in the supratentorial and infratentorial parenchyma. The vast majority of these are stable from prior exam. One subtle lesion in the right paramedian occipital lobe may have increased in size minimally from prior. No convincing evidence of a new lesion. Electronically signed by: Cristino Bae M.D. 01/06/2017 3:13 PM Assessment & Plan Plan: The skin irritation on her back appears to be healing. I did give her aloe vera gel to apply to this area twice daily. She has an appointment with Dr. Townsend tomorrow. Follow-up scanning will be through medical oncology. She is aware of the lesion present in the left femur this was reviewed previously. This asymptomatic. Treatment would be indicated should she develop pain in this area. She may return as needed and at the direction of Dr. Townsend. Copy To Sridhar Townsend D.O.; Kiley Morton MD Problem Qualifiers (1) Lung cancer: Laterality: left Lung location: hilum of lung Qualified Codes: C34.02 - Malignant neoplasm of left main bronchus
== END | disposition home or self-care (01) ==
LOC: C.ONC 14:52
PROVIDERS: ATTEND Physician Assistant Medical
DX: Z08 Encounter for follow-up examination after completed treatment for malignant neoplasm (principal); Z92.3 Personal history of irradiation; Z85.118 Personal history of other malignant neoplasm of bronchus and lung

== ENCOUNTER → 2017-02-09 | Outpatient (CLI) | payer OTHER ==
--- NOTE | 2017-02-09 13:56 | DIAGNOSTIC IMAGING REPORT ---
PET/CT HISTORY: NON SMALL CELL LUNG CA TECHNIQUE: PET/CT was performed from the base of the skull through the pelvis following the intravenous administration of 14.2 mCi of F18-FDG. Non-contrast CT imaging was performed over the same range without breath-hold for attenuation correction of PET images and anatomic correlation, but not for primary interpretation as it is not of standard diagnostic quality. CT DOSE: COMPARISON: PET CT 10/27/2016. Brain MRI 01/06/2017. FINDINGS: HEAD AND NECK: FDG uptake associated with the metastatic lesion within the left cerebellar hemisphere. This demonstrate an SUV max of 10. Focus of FDG uptake associated with the left anterior scalene muscle on image 45. This is new from the prior study but could be physiologic. This demonstrates an SUV max of 4. CHEST: Multiple right pulmonary nodules are similar in size and number compared the prior study. Dominant nodule within the right upper lobe measures 1.9 cm. This was premature reported to measure 1.5 cm which is likely an estimated. This demonstrates an SUV max of 5.6 which has progressed. Additional FDG avid nodules have also demonstrate increased FDG uptake. Postoperative changes within the left hemithorax with an associated large left posterior lateral chest wall defect. Large left posterior pleural gas pocket remains unchanged in size. The demonstrates peripheral FDG uptake with an SUV max of 9.8. This is similar to the prior study. FDG avid left axillary lymph nodes are similar in size and FDG uptake with an SUV max of 3. Dominant lymph node measures 1.5 x 0.8 cm. ABDOMEN/PELVIS: Below the diaphragm, tracer is distributed physiologically in the gastrointestinal and genitourinary tracts. There is no significant lymphadenopathy and no FDG-avid disease. MUSCULOSKELETAL: No significant change in the left mid femoral shaft metastatic lesion. This does not demonstrate significant FDG uptake Patchy FDG uptake within the right femoral proximal shaft metastatic lesion has improved. This demonstrates an SUV max of 4, previously demonstrating an SUV max of 7.4. IMPRESSION: 1. Overall, mixed response compared to the prior study. 2. The multiple right-sided FDG avid pulmonary nodules are similar in size but demonstrate increased FDG uptake. 3. Decreased FDG uptake associated with the right femoral metastatic lesion. 4. No change in the FDG uptake within the mild left axillary lymphadenopathy. 5. FDG avid left cerebellar lesion is again noted. Electronically signed by: Deep Man M.D. 02/09/2017 1:55 PM Dictated Date/Time: 02/09/2017 1:36 PM
== END | disposition home or self-care (01) ==
LOC: C.PET 09:51
PROVIDERS: ATTEND Internal Medicine Hematology & Oncology
DX: C34.90 Malignant neoplasm of unspecified part of unspecified bronchus or lung (principal)

== ENCOUNTER → 2017-04-25 | Outpatient (CLI) | payer OTHER ==
[~2017-04-25] MED LIST changes: -BND25CL PO; +DIPH25CA48 PO; +GADAVIST IV PRN
--- NOTE | 2017-04-25 20:31 | DIAGNOSTIC IMAGING REPORT ---
R FEMUR 2 VIEWS ROUTINE CLINICAL HISTORY: Non-small cell lung cancer. COMPARISON: PET/CT February 09, 2017. FINDINGS: A mixed sclerotic and lytic lesion within the intertrochanteric portion of the right femur extending into the subtrochanteric portion is noted. This is either stable or slightly increased since PET/CT of February 09, 2017. No associated pathologic fracture is identified. No additional suspicious osseous lesions are noted. IMPRESSION: Redemonstration of a right femoral metastasis centered within the intertrochanteric portion of the right femur. This is either stable or slightly increased in extent since PET/CT of February 09, 2017. No pathologic fracture. Electronically signed by: Cecilio Cunningham M.D. 04/25/2017 8:30 PM Dictated Date/Time: 04/25/2017 8:26 PM
--- NOTE | 2017-04-25 21:53 | DIAGNOSTIC IMAGING REPORT ---
MRI OF THE BRAIN WITHOUT AND WITH IV CONTRAST CLINICAL HISTORY: Lung cancer with brain metastases status post gamma knife therapy. COMPARISON STUDY: MRI of the brain January 06, 2017. TECHNIQUE: Utilizing a 1.5 Olive magnet and dedicated coil, multiplanar, multiecho imaging of the brain was performed pre and postcontrast administration. IV administration of 10 mL of Gadavist contrast was uneventful. FINDINGS: No foci of restricted diffusion. No acute intracranial hemorrhage is present. Ventricular system is normal. Basilar cisterns are patent. There are no extra-axial collections. Flow-voids for the major intracranial vessels are present. Numerous enhancing lesions within the supratentorial and infratentorial brain are again noted. The majority of these are unchanged since exam of January 06, 2017 and include a 1.3 cm lesion within the right cerebellar hemisphere shown image 6, a left cerebellar lesion measuring 1.3 cm shown on image 7, a 1.1 cm left temporal lobe lesion shown image 9 and a 1.3 cm right frontal lobe lesion shown on image 16. Associated vasogenic edema is similar to exam of January 06, 2017. A 6 mm left cerebellar lesion shown image 5 has slightly increased in size. A smaller left cerebellar lesion measuring 5 mm, shown on image 3, has slightly increased since prior exam. A 5 mm right cerebellar lesion shown image 12 is similar to prior exam. IMPRESSION: Numerous supratentorial and infratentorial metastases, as described above. The majority of these are unchanged since MRI of January 06, 2017. A few small left cerebellar lesions have minimally increased in size since prior exam. Otherwise, no significant change. Stable associated vasogenic edema. Electronically signed by: Cecilio Cunningham M.D. 04/25/2017 9:51 PM Dictated Date/Time: 04/25/2017 7:17 PM
== END | disposition home or self-care (01) ==
LOC: C.MRI 17:59
PROVIDERS: ATTEND Internal Medicine Hematology & Oncology
DX: C34.12 Malignant neoplasm of upper lobe, left bronchus or lung (principal); C79.31 Secondary malignant neoplasm of brain; C79.51 Secondary malignant neoplasm of bone

== ENCOUNTER → 2017-05-04 | Outpatient (CLI) | payer OTHER ==
[~2017-05-04] MED LIST changes: +ATV2 PO; +BUME0.5T3 PO; +DRGTP100 TOP; +DXM1 PO; +EFFSR150 PO; +FLEC150T PO; +FLUT0.15 NAE; +FLV1 PO; +FRRS300 PO; +GABA-1219 PO; -GABA1CAP4 PO; -GADAVIST IV PRN; +GLUC1CAP35 PO; +LNX25 PO; +LVNIS40 SQ; +MRLP17 PO; +OXYC30TA PO; +PANT1TAB4 PO; +SENN-61 PO; +THY/60 PO; +VITBC PO
--- NOTE | 2017-05-04 12:08 | DIAGNOSTIC IMAGING REPORT ---
PET/CT SKULL-THIGH HISTORY: Lung carcinoma NON SMALL CELL LUNG CA TECHNIQUE: PET/CT was performed from the base of the skull through the pelvis following the intravenous administration of 15.4 mCi of F18-FDG. Non-contrast CT imaging was performed over the same range without breath-hold for attenuation correction of PET images and anatomic correlation, but not for primary interpretation as it is not of standard diagnostic quality. CT DOSE: COMPARISON: 02/09/2017 brain MRI 04/25/2017 FINDINGS: HEAD AND NECK: There is no FDG-avid disease or significant lymphadenopathy in the imaged portions of the head and the neck. CHEST: Slightly improved appearance to the chest compared to the prior study. 1. Size of several right hemithoracic nodules has diminished. A dominant right upper lobe nodule has diminished from 1.9 to 1.6 cm. FDG activity has diminished to 3.9 from 5.6. Numerous additional nodules have diminished in volume by 1 to 2 mm. A dominant nodule superior segment right lower lobe has diminished from 1.5 to 1.0 cm. Several additional mid to lower lung nodules remain stable 3. Extensive postoperative change of the left hemithorax has remained unchanged. Increased metabolic activity characteristics as well as distribution remains stable as well. There does not appear to be evidence for a new or progressive process within the chest. Physiologic activity remains within the myocardium. ABDOMEN/PELVIS: Below the diaphragm, tracer is distributed physiologically in the gastrointestinal and genitourinary tracts. There is no significant lymphadenopathy and no FDG-avid disease. MUSCULOSKELETAL: No major change in activity of the mid femoral lesion. Moderate musculoskeletal pneumonic activity of the right thigh most likely secondary to patient motion during the exam. Unchanging cerebellar foci of increased activity. IMPRESSION: 1. Mild improvement in the appearance of the right and to a lesser extent left hemithorax compared to the prior study. 2. Several nodules have diminished in metabolic activity characteristics as well as size. 3. All remaining components of the study are stable. 4. Unchanging femoral and cerebellar metastatic deposits. 5. Overall the examination is considered slightly improved compared to the prior study. The above report was generated using voice recognition software. It may contain grammatical, syntax or spelling errors. Electronically signed by: Jerry Resendiz M.D. 05/04/2017 12:07 PM Dictated Date/Time: 05/04/2017 11:51 AM
== END | disposition home or self-care (01) ==
LOC: C.PET 09:15
PROVIDERS: ATTEND Internal Medicine Hematology & Oncology
DX: C34.12 Malignant neoplasm of upper lobe, left bronchus or lung (principal)

== ENCOUNTER → 2017-06-29 | Outpatient (CLI) | payer OTHER ==
[~2017-06-29] MED LIST changes: -DRGTP100 TOP; -DXM1 PO; -FLV1 PO; -FRRS300 PO; -LVNIS40 SQ; -MRLP17 PO; -OXYC30TA PO; -PANT1TAB4 PO; -SENN-61 PO
--- NOTE | 2017-06-29 17:55 | DIAGNOSTIC IMAGING REPORT ---
MRI OF THE BRAIN COMBO CLINICAL HISTORY: Metastatic lung cancer. History of radiation treatment. COMPARISON STUDY: MRI of the brain dated 04/25/2017. TECHNIQUE: MRI of the brain was performed utilizing various T1 and T2-weighted sequences in the axial, sagittal, and coronal planes. Contrast-enhanced sequences were acquired following the administration of 10 cc of Gadavist. FINDINGS: Brain parenchyma: There are age-related involutional changes noting mild patchy subcortical and periventricular microangiopathic disease. Multifocal intracranial metastatic disease is unchanged to slightly progressed from the 04/25/2017 examination. A statement services representative lesion in the left cerebellar hemisphere seen on axial postcontrast image #6 measures 1.5 cm (previously measuring 1.3 cm). At least 8 additional lesions are identified. These demonstrate mild surrounding edema on the FLAIR images. There is no hemorrhage or mass effect. There is no restricted diffusion to suggest acute ischemia. Macario-white matter differentiation is preserved. No extra-axial fluid collection is seen. The cerebellar tonsils are normal in configuration. Ventricles, sulci, and cisterns: Prominent secondary to involutional change. Pituitary and sella: Partially empty sella is incidentally noted. Intracranial vasculature: Normal flow voids are maintained at the skull base. Orbits: The bony orbits are grossly intact. Orbital contents are normal in appearance. Sinuses and mastoids: Clear. Calvarium: Unremarkable. Cervical cord: Partially visualized cervical spinal cord is normal in morphology and signal intensity. IMPRESSION: 1. Again seen is multifocal intracranial metastatic disease as above. This is unchanged to minimally progressed from the 04/25/2017 examination. 2. No new enhancing lesions are clearly identified. 3. There is no evidence of hemorrhage, mass effect, or acute ischemia Electronically signed by: Darian Elder M.D. 06/29/2017 5:53 PM Dictated Date/Time: 06/29/2017 5:45 PM
== END | disposition home or self-care (01) ==
LOC: C.MRI 16:42
PROVIDERS: ATTEND Internal Medicine Hematology & Oncology
DX: C34.12 Malignant neoplasm of upper lobe, left bronchus or lung (principal); C79.31 Secondary malignant neoplasm of brain

== ENCOUNTER 2017-07-06 19:05 | Emergency (ER) | payer OTHER ==
[~2017-07-06] VITALS: Ht 154.9 cm; Wt 103.5 kg
[~2017-07-06 19:05] MED LIST changes: -ATV2 PO; -BUME0.5T3 PO; -CELE1CAP28 PO; -COEN1CAP37 PO; -EFFSR150 PO; -FLEC150T PO; -FLUT0.15 NAE; -GABA-1219 PO; -GLUC1CAP35 PO; -LNX25 PO; -ONDA-63 PO; -THY/60 PO; -VITBC PO
[2017-07-06 19:28] VITALS: TEMP 36.9; Ht 154.9 cm; Wt 103.5 kg
[2017-07-06] MEDS ORDERED: CELE1CAP28 PO (19:57)
[2017-07-06] MEDS ORDERED: GABA-1219 PO (19:57)
[2017-07-06] MEDS ORDERED: ONDA-63 PO (19:57)
[2017-07-06] MEDS ORDERED: COEN1CAP37 PO (20:04)
--- NOTE | 2017-07-06 20:56 | EMERGENCY ROOM VISIT NOTE ---
History Report prepared by Maritza: Scott Dozier Under the Supervision of: Dr. Sonya Vance M.D. First contact with patient: 20:36 Chief Complaint: GI ASSESSMENT Stated Complaint: COUGHING UP BLOOD & CLOTS- STAGE 4 METS LUNG CA History of Present Illness The patient is a 56 year old female who presents to the Emergency Room with complaints of a cough that is producing blood which began on Tuesday night, two days prior to this visit. The patient states that when she woke up this morning she coughed up a significant amount of blood. She is admit that she was not vomiting, and that the blood was coming from her lung. The patient was diagnosed with lung cancer 4 years ago, and then had a series of "failed surgeries" that led to one of her lungs being removed. She currently has a drainage point under her left maxilla that drains from her left lung. She is currently on oral chemotherapy treatments. She notes that this current medication is known to reduce the respiratory rate, which she has been experiencing. The patient also mentioned that she has noticed a significant amount of increased swelling in her lower extremities. 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 A total of 10 systems reviewed and were otherwise negative. Past Medical & Surgical Medical Problems: (1) A-fib (2) Adenocarcinoma of lung (3) Anxiety (4) Degenerative joint disease (5) Depression (6) HTN (hypertension) (7) Hypothyroidism (8) Lung cancer (9) PE (pulmonary embolism) Surgical Problems: (1) Pleurodesis (2) S/P thoracentesis Social History Problems: (1) Tobacco abuse Family History Cancer Heart disease Social History Smoking Status: Former Smoker Alcohol Use: none Drug Use: none Marital Status: Housing Status: lives with family Occupation Status: retired Current/Historical Medications Scheduled Ascorbic Acid (Vitamin C), 1,000 MG PO BID Celecoxib (Celecoxib), 100 MG PO BID Cholecalciferol (Vitamin D3), 6,000 INTER.UNIT PO DAILY Coenzyme Q10 (Ubidecarenone) (Co Q-10), 2 TABS PO BID Digoxin (Digoxin), 0.25 MG PO DAILY Docusate Sodium (Docusate Sodium), 100 MG PO BID Fentanyl (Duragesic), 50 MCG TD [id number] Flecainide Acetate (Flecainide Acetate), 150 MG PO Q12 Fluticasone Propionate (Nasal) (Flonase Allergy Relief), 2 SPRAYS DON DAILY Gabapentin (Gabapentin), 600 MG PO TID Ziexqowkznl-Iuamwepzbwv-Fdj C- (Glucosamine Chondroitin), 1 CAP PO BID Ipratropium-Albuterol (Combivent Respimat), 1 PUFFS INH QID Krill Oil (Krill Oil), 2 CAP PO DAILY Multiple Vitamin (Multivitamin), 1 TAB PO DAILY Osimertinib Mesylate (Tagrisso), 80 MG PO Q2D Probiotic Product (Probiotic), 1 CAP PO DAILY Thyroid (Thyroid Extract), 60 MG PO DAILY Venlafaxine Hcl (Effexor Extended Rel), 150 MG PO DAILY Vitamin B Complex (Vitamin B Complex), 1 TAB PO DAILY [Magnesium Citrate], 625 MG PO DAILY Scheduled PRN Bumetanide (Bumetanide), 1-2 TABS PO DAILY PRN for FLUID RETENTION Diphenhydramine HCl (Diphenhydramine HCl), 3-4 TABS PO HS PRN for Sleep Lorazepam (Lorazepam), 2 MG PO BID PRN for Anxiety Ondansetron (Ondansetron HCl), 8 MG PO Q4 PRN for Nausea or Vomiting Oxycodone Hcl (Oxycodone Hcl), 10 MG PO Q3H PRN for Pain Allergies Coded Allergies: No Known Allergies (Unverified , 11/18/14) Physical Exam Vital Signs Date Time Temp Pulse Resp B/P (MAP) Pulse Ox O2 Delivery O2 Flow Rate FiO2 07/07/17 00:30 79 19 141/82 93 Room Air 07/07/17 00:00 84 25 07/06/17 22:18 Room Air 07/06/17 21:46 79 07/06/17 21:37 70 18 150/93 92 Room Air 07/06/17 19:28 36.9 74 18 172/83 97 Room Air Physical Exam Vital signs reviewed. General: Ill-appearing female, in no significant distress. HEENT: No scleral icterus, PERRLA, neck supple. Atraumatic. Pale conjunctiva. Cardiovascular: Regular rate and rhythm, no extra sounds. Pulmonary: There is diminished breath sounds on the left side. normal work of breathing. Abdomen: Soft, nontender, nondistended, positive bowel sounds. Musculoskeletal: Atraumatic, no peripheral edema. Neurologic: Patient awake alert and oriented x 3 Skin: PALE, Warm, dry, no rash Medical Decision & Procedures ER Provider Diagnostic Interpretation: Radiology results as stated below per my review and radiologist interpretation: ULTRASOUND L VENOUS DOPP LOWER EXT UNILAT CLINICAL HISTORY: Left lower extremity erythema and swelling COMPARISON STUDY: No previous studies for comparison. FINDINGS: Real-time and color flow Doppler imaging were performed. Flow was seen within the femoral, popliteal and calf veins with no intraluminal thrombus demonstrated. The saphenous vein is patent. IMPRESSION: No evidence of left lower extremity DVT Electronically signed by: Tej Harrison M.D. 07/06/2017 10:56 PM Dictated Date/Time: 07/06/2017 10:[address] CHEST WITH Contrast: Comparison November 18, 2015 Axial images only. Postoperative changes on the left again noted with open wound, as on prior. There is less aerated lung on the left compared to previous which may represent increasing atelectatic changes. Difficult to Exclude some superimposed infiltrate on the left. Worsening metastatic disease. Innumerable pulmonary nodules on the right which appear more prominent than the previous. Sclerotic changes of the left ribs. May be related to post treatment changes and /or metastatic disease. Aberrant right subclavian artery and other unchanged findings. Radiologist: Dann Lal M.D. Laboratory Results 07/06/17 21:21 Red Blood Count 3.86, Mean Corpuscular Volume 79.8, Mean Corpuscular Hemoglobin 23.3, Mean Corpuscular Hemoglobin Concent 29.2, Mean Platelet Volume 10.0, Neutrophils (%) (Auto) 68.1, Lymphocytes (%) (Auto) 17.5, Monocytes (%) (Auto) 10.3, Eosinophils (%) (Auto) 3.7, Basophils (%) (Auto) 0.3, Neutrophils # (Auto ) 4.64, Lymphocytes # (Auto) 1.19, Monocytes # (Auto) 0.70, Eosinophils # (Auto ) 0.25, Basophils # (Auto) 0.02 07/06/17 21:21 Test 07/06/17 21:21 White Blood Count 6.81 K/uL (4.8-10.8) Red Blood Count 3.86 M/uL (4.2-5.4) Hemoglobin 9.0 g/dL (12.0-16.0) Hematocrit 30.8 % (37-47) Mean Corpuscular Volume 79.8 fL (80-100) Mean Corpuscular Hemoglobin 23.3 pg (25-34) Mean Corpuscular Hemoglobin Concent 29.2 g/dl (32-36) Platelet Count 419 K/uL (130-400) Mean Platelet Volume 10.0 fL (7.4-10.4) Neutrophils (%) (Auto) 68.1 % Lymphocytes (%) (Auto) 17.5 % Monocytes (%) (Auto) 10.3 % Eosinophils (%) (Auto) 3.7 % Basophils (%) (Auto) 0.3 % Neutrophils # (Auto) 4.64 K/uL (1.4-6.5) Lymphocytes # (Auto) 1.19 K/uL (1.2-3.4) Monocytes # (Auto) 0.70 K/uL (0.11-0.59) Eosinophils # (Auto) 0.25 K/uL (0-0.5) Basophils # (Auto) 0.02 K/uL (0-0.2) RDW Standard Deviation 49.6 fL (36.4-46.3) RDW Coefficient of Variation 17.0 % (11.5-14.5) Immature Granulocyte % (Auto) 0.1 % Immature Granulocyte # (Auto) 0.01 K/uL (0.00-0.02) Hypochromasia PRESENT Prothrombin Time 10.3 SECONDS (9.0-12.0) Prothromb Time International Ratio 1.0 (0.9-1.1) Activated Partial Thromboplast Time 27.6 SECONDS (21.0-31.0) Partial Thromboplastin Ratio 1.1 Anion Gap 4.0 mmol/L (3-11) Est Creatinine Clear Calc Drug Dose 112.9 ml/min Estimated GFR () 117.9 Estimated GFR (Non- 101.7 BUN/Creatinine Ratio 23.7 (10-20) Calcium Level 8.8 mg/dl (8.5-10.1) Magnesium Level 2.7 mg/dl (1.8-2.4) Total Bilirubin 0.1 mg/dl (0.2-1) Direct Bilirubin < 0.1 mg/dl (0-0.2) Aspartate Amino Transf (AST/SGOT) 16 U/L (15-37) Alanine Aminotransferase (ALT/SGPT) 18 U/L (12-78) Alkaline Phosphatase 116 U/L (45-117) Total Protein 8.6 gm/dl (6.4-8.2) Albumin 3.2 gm/dl (3.4-5.0) Laboratory results per my review. Medications Administered Medications (Trade) Dose Ordered Sig/Bhavesh Route Start Time Stop Time Status Last Admin Dose Admin Sodium Chloride 1,000 ml @ 125 mls/hr Q8H STAT IV 07/06/17 20:57 07/07/17 01:05 DC 07/06/17 21:41 125 MLS/HR Clindamycin HCl (Cleocin Cap) 300 mg ONE ONCE PO 07/07/17 00:00 07/07/17 00:01 DC 07/07/17 00:00 300 MG ECG Per My Interpretation Indication: SOB/dyspnea, other (Cough with SOB) Rate (beats per minute): 75 Rhythm: normal sinus Findings: nonspecific-ST abn (Anterior), other (No PVCs) Comparison ECG Date: 03/27/2015 Change: T-waves are now flattened ED Course 2043: Past medical records reviewed. The patient was evaluated in room C8. A complete history and physical examination was performed. 2056: Ordered Sodium Chloride 1000 mL @ 125 mL/hr IV. 0000: Ordered Clindamycin HCl 300 mg PO. 6: Upon reevaluation, the patient appeared to have improvement of her symptoms. I discussed findings with her. She verbalized agreement of the treatment plan. The patient was discharged home. Medical Decision Differential Diagnosis includes; Tumor erosion, pneumonia, coagulopathy, aortic injury, pulmonary embolism. This pt was evaluated and appeared to be in no distress. IV access was obtained and lab work was drawn. Pt was hydrated with NSS. H/H is stable when compared to prior, although anemic. Pt is known to have mets lung CA. CT chest was performed and L side of chest has chronically atelectatic lung. Right lung has mets tumors. Pt is likely bleeding from a tumor erosion of vasculature or bleeding tumor itself. US of left leg was negative for DVT. I suspect a mild cellulitis. Pt was started on po clindamycin outpt 2 days ago by pulmonology. She has had no further hemoptysis in ED. She was d/c to f/u with pulmonary medicine tomorrow at 3:15 as scheduled. She will return to the ED for worsening of symptoms or any medical concerns. Medication Reconcilliation Current Medication List: was personally reviewed by me Blood Pressure Screening Patient's blood pressure: Elevated blood pressure Blood pressure disposition: Referred to PCP Impression Primary Impression: Hemoptysis Additional Impressions: Metastatic primary lung cancer Cellulitis of left lower extremity Scribe Attestation The scribe's documentation has been prepared under my direction and personally reviewed by me in its entirety. I confirm that the note above accurately reflects all work, treatment, procedures, and medical decision making performed by me. Departure Information Dispostion Home / Self-Care Referrals Kiley Morton MD (PCP) Forms HOME CARE DOCUMENTATION FORM, IMPORTANT VISIT INFORMATION Patient Instructions My [facility] Additional Instructions Diagnosis: Hemoptysis, metastatic lung cancer, left lower extremity cellulitis Clindamycin as prescribed previously. Please pick pack worker your prescription tomorrow. Follow-up with pulmonary medicine tomorrow at 3:15 as scheduled. Please drink plenty of clear fluids and continue medications as prescribed. Return to the emergency department for worsening of symptoms, increased bleeding or any medical concerns. Problem Qualifiers
[2017-07-06] MEDS: SODIUM CHLORIDE 0.9% 1000ML 1,000 ML IV STA (21:41)
[2017-07-06 21:51] LABS: PTT PATIENT 27.6 SECONDS (21.0-31.0)
[2017-07-06 22:06] LABS: ALBUMIN 3.2 gm/dl (3.4-5.0); ALT/SGPT 18 U/L (12-78); BLOOD UREA NITROGEN 15 mg/dl (7-18); CALCIUM 8.8 mg/dl (8.5-10.1); CARBON DIOXIDE 32 mmol/L (21-32); CREATININE 0.63 mg/dl (0.60-1.20); GLUCOSE 87 mg/dl (70-99); POTASSIUM 3.9 mmol/L (3.5-5.1); SODIUM 137 mmol/L (136-145)
[2017-07-06 22:08] LABS: ALKALINE PHOSPHATASE 116 U/L (45-117); AST/SGOT 16 U/L (15-37); TOTAL PROTEIN 8.6 gm/dl (6.4-8.2)
[2017-07-06 22:29] LABS: HEMATOCRIT 30.8 % (37-47); MEAN CELL VOLUME 79.8 fL (80-100); MEAN CORPUSCULAR HEMOGLOBIN 23.3 pg (25-34); MEAN CORPUSCULAR HGB CONC 29.2 g/dl (32-36); PLATELET COUNT 419 K/uL (130-400); RED CELL DISTRIBUTION WIDTH SD 49.6 fL (36.4-46.3); WHITE BLOOD COUNT 6.81 K/uL (4.8-10.8)
[2017-07-06 22:30] LABS: BASO % 0.3 %; BASO ABS # 0.02 K/uL (0-0.2); EOS % 3.7 %; EOS ABS # 0.25 K/uL (0-0.5); IG# 0.01 K/uL (0.00-0.02); LYMPH % 17.5 %; LYMPH ABS # 1.19 K/uL (1.2-3.4); MONO % 10.3 %; NEUT % 68.1 %; NEUT ABS # 4.64 K/uL (1.4-6.5)
[2017-07-06] MEDS ORDERED: ATV2 PO (22:48)
[2017-07-06] MEDS ORDERED: EFFSR150 PO (22:48)
[2017-07-06] MEDS ORDERED: FLEC150T PO (22:48)
[2017-07-06] MEDS ORDERED: BUME0.5T3 PO (22:48)
[2017-07-06] MEDS ORDERED: GLUC1CAP35 PO (22:48)
[2017-07-06] MEDS ORDERED: IPRA1AER2 INH (22:48)
[2017-07-06] MEDS ORDERED: THY/60 PO (22:48)
[2017-07-06] MEDS ORDERED: LNX25 PO (22:48)
[2017-07-06] MEDS ORDERED: VITBC PO (22:48)
[2017-07-06] MEDS ORDERED: FLUT0.15 NAE (22:48)
--- NOTE | 2017-07-06 22:58 | DIAGNOSTIC IMAGING REPORT ---
ULTRASOUND L VENOUS DOPP LOWER EXT UNILAT CLINICAL HISTORY: Left lower extremity erythema and swelling COMPARISON STUDY: No previous studies for comparison. FINDINGS: Real-time and color flow Doppler imaging were performed. Flow was seen within the femoral, popliteal and calf veins with no intraluminal thrombus demonstrated. The saphenous vein is patent. IMPRESSION: No evidence of left lower extremity DVT Electronically signed by: Tej Harrison M.D. 07/06/2017 10:56 PM Dictated Date/Time: 07/06/2017 10:56 PM
[2017-07-06] MEDS ORDERED: OPTIRAY 320 IV PRN (23:15)
[2017-07-07] MEDS: CLINDAMYCIN HCL 150 MG CAP PO ONE
[2017-07-07 00:30] VITALS: BP 141/82; PULSE 79; O2SAT 93
--- NOTE | 2017-07-07 06:41 | DIAGNOSTIC IMAGING REPORT ---
(CHEST) THORAX WITH CT DOSE: 644.08 mGy.cm HISTORY: Lung carcinoma lung CA, hemoptysis x 2 days TECHNIQUE: Multiaxial CT images of the chest were performed following the intravenous administration of contrast. A dose lowering technique was utilized adhering to the principles of ALARA. COMPARISON: 11/18/2015 FINDINGS: Postoperative changes left hemithorax with evidence for a large open wound left lower chest wall. Mild increase in consolidative change left base compared to the prior study. Progressive multinodular pattern of the right hemithorax. This is consistent with that of progressive metastatic disease. Stable sclerotic change of several left sided ribs. Left axillary adenopathy slightly progressive compared to the prior exam. IMPRESSION: 1. Slightly progressive consolidative change left base is generally stable postoperative changes 2. Progressive nodularity consistent with progressive metastatic disease throughout the right hemithorax. The above report was generated using voice recognition software. It may contain grammatical, syntax or spelling errors. Electronically signed by: Jerry Resendiz M.D. 07/07/2017 6:40 AM Dictated Date/Time: 07/07/2017 6:33 AM
== END 2017-07-07 00:42 | disposition home or self-care (01) ==
LOC: C.EDB 19:07 → C.EDC 07-07 00:42
DX: R04.2 Hemoptysis (principal); C34.90 Malignant neoplasm of unspecified part of unspecified bronchus or lung; L03.116 Cellulitis of left lower limb; I48.91 Unspecified atrial fibrillation; F41.9 Anxiety disorder, unspecified; F32.9 Major depressive disorder, single episode, unspecified; I10 Essential (primary) hypertension; E03.9 Hypothyroidism, unspecified; Z82.49 Family history of ischemic heart disease and other diseases of the circulatory system; Z87.891 Personal history of nicotine dependence

== ENCOUNTER → 2017-08-01 | Outpatient (CLI) | payer OTHER ==
[~2017-08-01] MED LIST changes: +ATV2 PO; -ATV5X PO; +BUME0.5T3 PO; +CELE1CAP28 PO; +COEN1CAP37 PO; -DIGO0.1219 PO; +EFFSR150 PO; +FLEC150T PO; +FLUT0.15 NAE; +GABA-1219 PO; +GLUC1CAP35 PO; -HYDR-4383 PO; +LNX25 PO; +ONDA-63 PO; -THY/30 PO; +THY/60 PO; -TMB100 PO; -VENL150C56 PO; +VITBC PO
--- NOTE | 2017-08-01 13:59 | DIAGNOSTIC IMAGING REPORT ---
PET/CT CLINICAL HISTORY: Lung cancer. COMPARISON STUDY: PET/CT dated 05/04/2017. Chest CT dated 11/18/2015. TECHNIQUE: One hour following the IV administration of 12.04 mCi of F-18 FDG, PET/CT examination was performed from the orbital meatal line through the bony pelvis. Noncontrast CT is performed for the purposes of anatomic correlation and attenuation correction. Note that this does not reflect a diagnostic CT examination. Images were reviewed on a separate [employer] independent workstation. Fused images were obtained. Standard uptake values reported are maximum values within the region of interest expressed in gm/mL. FINDINGS: PET FINDINGS: Head and neck: There is expected physiologic activity within the visualized brain parenchyma at the skull base and the salivary glands. There is a 1.4 cm left clavicular node on image #57 which demonstrates a maximum SUV of 3.6. Thorax: Evaluation of the thorax demonstrates expected physiologic myocardial activity. Postpneumonectomy change with an open left hemithorax is similar to previous. Pleural thickening and fluid within the left pleural space is similar to previous. This demonstrates foci of nodularity and FDG activity with a maximum SUV of 9.6. Too numerous to count metastatic pulmonary lesions in the right lung have not appreciably changed as compared to 05/04/2017. The largest lesion is seen in the right upper lobe on image #72 and measures 1.9 cm. This is FDG avid with a maximum SUV of 6.4. No FDG avid mediastinal or hilar adenopathy is seen. There are prominent and mildly FDG avid left axillary nodes. The largest is seen on image #82 measuring 1.4 cm and demonstrates a maximum SUV of 2.5. Abdomen and pelvis: There is expected activity within the liver, spleen, kidneys, renal collecting system, and bladder. Low-level bowel activity is likely within physical limits. Skeletal structures: Osteoblastic metastatic disease is similar to previous. A large lesion is again identified in the right proximal femur on image #216. There is no significant FDG activity within this lesion on today's examination. Sclerotic change is identified within several left-sided ribs and there is deformity of the left chest wall. This was not FDG avid and may be related to previous surgery. No new osseous lesion is seen. Unenhanced CT images: The patient's known cerebellar metastases are not well visualized. The bony orbits appear intact. Orbital contents are within normal limits. The visualized paranasal sinuses and mastoid air cells are clear. The salivary and thyroid glands are within normal limits. There is mild atherosclerotic calcification of the thoracic aorta which is normal in caliber. An aberrant right subclavian artery is noted. There is no right axillary lymphadenopathy. There are postoperative changes from left-sided pneumonectomy. A large wound is again seen in the left lower chest wall. No airspace consolidation is identified typical for pneumonia in the right lung. The heart is mildly enlarged and there is trace pericardial effusion. The unenhanced liver is enlarged, measuring 20 cm in length. The liver demonstrates diffusely diminished attenuation consistent with hepatic steatosis. The unenhanced gallbladder, spleen, adrenal glands, and pancreas are grossly unremarkable. The kidneys are atrophic and without hydronephrosis. There are least 2 punctate nonobstructing left renal calculi. An infrarenal IVC filter is in place. The abdominal aorta is normal in caliber noting mild atherosclerotic calcification. No bowel obstruction is seen. A normal appendix is identified. There is mild colonic diverticulosis without CT evidence of acute diverticulitis. Moderate colonic fecal retention is observed. No intraperitoneal free air or abdominal ascites is seen. There is no abdominal, pelvic, or inguinal adenopathy. The bladder, uterus, and adnexa are normal as visualized. The skeletal structures are osteopenic. Sclerotic change is noted in the sacroiliac joints. IMPRESSION: 1. There has been no significant change from 05/04/2017. 2. Again seen are postoperative changes from left pneumonectomy with an open left hemithorax. FDG avid pleural thickening and pleural fluid are again noted in the left hemithorax. 3. Multifocal and FDG avid right-sided pulmonary metastatic disease, as well as FDG avid left supraclavicular and left axillary lymph nodes are unchanged. 4. Hepatomegaly and hepatic steatosis. 5. A sclerotic lesion in the right proximal femur is unchanged. 6. Additional findings as above. Electronically signed by: Darian Elder M.D. 08/01/2017 1:58 PM Dictated Date/Time: 08/01/2017 1:40 PM
== END | disposition home or self-care (01) ==
LOC: C.PET 10:00
PROVIDERS: ATTEND Internal Medicine Hematology & Oncology
DX: C34.12 Malignant neoplasm of upper lobe, left bronchus or lung (principal); R16.0 Hepatomegaly, not elsewhere classified; K76.0 Fatty (change of) liver, not elsewhere classified; M89.9 Disorder of bone, unspecified; Z90.2 Acquired absence of lung [part of]

== ENCOUNTER → 2017-08-31 | Outpatient (CLI) | payer OTHER ==
[~2017-08-31] MED LIST changes: +GADAVIST IV PRN
--- NOTE | 2017-08-31 16:36 | DIAGNOSTIC IMAGING REPORT ---
MRI OF THE BRAIN WITHOUT AND WITH IV CONTRAST CLINICAL HISTORY: Metastatic lung cancer. COMPARISON STUDY: MRI of the brain June 29, 2017. TECHNIQUE: Utilizing a 1.5 Olive magnet and dedicated coil, multiplanar, multiecho imaging of the brain was performed pre and postcontrast administration. IV administration of 10 mL of Gadavist contrast was uneventful. FINDINGS: Numerous enhancing supratentorial and infratentorial metastases are again noted. No new lesions are identified on since exam. These include a 6 mm left cerebellar lesion shown image 4, a 1.2 cm right cerebellar lesion shown on image 6, a 1.3 cm left cerebellar lesion shown image 7, a 6 mm right occipital lobe lesion shown image 12, a 1 cm right frontal lobe lesion shown on image 15 as well as numerous additional smaller lesions. Associated vasogenic edema is similar to previous MRI of June 29, 2017. Enhancement of these lesions has likely diminished since previous exam of June 29, 2017. This exam is mildly compromised by motion artifact. There is no evidence for acute infarction. No calvarial lesions are identified. Basilar cisterns are patent. There are no extra-axial collections. Flow-voids for the major intracranial vessels are present. IMPRESSION: Slight interval decrease in enhancement of numerous supra and infratentorial metastases since MRI June 29, 2017. No new lesions identified. Stable associated vasogenic edema. Electronically signed by: Cecilio Cunningham M.D. 08/31/2017 4:35 PM Dictated Date/Time: 08/31/2017 4:24 PM
== END | disposition home or self-care (01) ==
LOC: C.MRI 15:26
PROVIDERS: ATTEND Internal Medicine Hematology & Oncology
DX: C34.12 Malignant neoplasm of upper lobe, left bronchus or lung (principal)

== ENCOUNTER → 2017-09-05 | Outpatient (CLI) | payer OTHER ==
[~2017-09-05] MED LIST changes: -GADAVIST IV PRN
[2017-09-05 21:23] LABS: ALBUMIN 3.2 gm/dl (3.4-5.0); ALT/SGPT 24 U/L (12-78); AST/SGOT 13 U/L (15-37); BLOOD UREA NITROGEN 33 mg/dl (7-18); CALCIUM 8.7 mg/dl (8.5-10.1); CARBON DIOXIDE 32 mmol/L (21-32); CREATININE 0.86 mg/dl (0.60-1.20); GLUCOSE 88 mg/dl (70-99); POTASSIUM 4.3 mmol/L (3.5-5.1); SODIUM 138 mmol/L (136-145)
[2017-09-05 21:26] LABS: ALKALINE PHOSPHATASE 130 U/L (45-117); TOTAL PROTEIN 8.7 gm/dl (6.4-8.2)
[2017-09-05 21:43] LABS: BASO % 0.2 %; BASO ABS # 0.01 K/uL (0-0.2); EOS % 3.7 %; EOS ABS # 0.24 K/uL (0-0.5); HEMOGLOBIN 9.5 g/dL (12.0-16.0); IG# 0.02 K/uL (0.00-0.02); LYMPH ABS # 1.38 K/uL (1.2-3.4); MEAN CELL VOLUME 80.4 fL (80-100); MEAN CORPUSCULAR HEMOGLOBIN 23.9 pg (25-34); MEAN CORPUSCULAR HGB CONC 29.7 g/dl (32-36); MONO % 9.9 %; MONO ABS # 0.65 K/uL (0.11-0.59); NEUT % 64.9 %; NEUT ABS # 4.27 K/uL (1.4-6.5); PLATELET COUNT 400 K/uL (130-400); RED CELL DISTRIBUTION WIDTH CV 17.7 % (11.5-14.5); RED CELL DISTRIBUTION WIDTH SD 52.2 fL (36.4-46.3); WHITE BLOOD COUNT 6.57 K/uL (4.8-10.8)
== END | disposition home or self-care (01) ==
LOC: C.LAB 20:47
PROVIDERS: ATTEND Internal Medicine Hematology & Oncology
DX: C34.12 Malignant neoplasm of upper lobe, left bronchus or lung (principal)

== ENCOUNTER 2017-11-26 23:22 | Inpatient (IN) | payer OTHER ==
[~2017-11-26] VITALS: Ht 154.9 cm; Wt 97.4 kg
[2017-11-26] MEDS ORDERED: HYDROmorphone INJ 1 MG/ML SYR IV PRN (23:30)
[2017-11-26] MEDS ORDERED: HYDROmorphone INJ 1 MG/ML SYR IV STA (23:30)
--- NOTE | 2017-11-26 23:36 | EMERGENCY ROOM VISIT NOTE ---
History Report prepared by Maritza: Christopher Lewis Under the Supervision of: Dr. Maurice Naqvi M.D. First contact with patient: 23:23 Chief Complaint: LEG PAIN,LEG INJURY Stated Complaint: leg pain History of Present Illness The patient is a 57 year old female who presents to the Emergency Room with complaints of worsening right lower extremity pain that began a couple of months ago. The patient states she is currently being treated with chemotherapy for stage 4 lung cancer that metastasized to her bones including right femur, lymph nodes, and brain. She states it did not metastasize to her liver. She reports that for the last couple of months her right lower extremity has been painful. The patient states the pain was originally worse on the right lateral aspect but notes the pain is now worse on the right medial aspect. She notes that when she was able to walk, she would become short of breath. The patient reports that for the last five days, her lower extremities have been swollen bilaterally. She denies abdominal pain, rash, headache, neck pain, weakness in one arm, falls, syncope, and chest pain. The patient states that she uses 2 L of oxygen at home at baseline. She states that she has been using Oxycodone, Hydrocodone, and Lorazepam. Source of History: patient Onset: a couple of months ago Position: leg (right) Timing: worsening Associated Symptoms: + SOB, No LOC, No headache, No neck pain, No chest pain , No abdominal pain, No rash Review of Systems See HPI for pertinent positives & negatives. A total of 10 systems reviewed and were otherwise negative. Past Medical & Surgical Medical Problems: (1) A-fib (2) Adenocarcinoma of lung (3) Anxiety (4) Degenerative joint disease (5) Depression (6) HTN (hypertension) (7) Hypothyroidism (8) Lung cancer (9) PE (pulmonary embolism) Surgical Problems: (1) Pleurodesis (2) S/P thoracentesis Social History Problems: (1) Tobacco abuse Family History Cancer Heart disease Social History Smoking Status: Former Smoker Alcohol Use: none Drug Use: none Marital Status: Housing Status: lives with family Occupation Status: retired Current/Historical Medications Scheduled Ascorbic Acid (Vitamin C), 1,000 MG PO BID Celecoxib (Celecoxib), 100 MG PO BID Cholecalciferol (Vitamin D3), 6,000 INTER.UNIT PO DAILY Coenzyme Q10 (Ubidecarenone) (Co Q-10), 2 TABS PO BID Digoxin (Digoxin), 0.25 MG PO DAILY Fentanyl (Duragesic), 50 MCG TD CQ72HR Flecainide Acetate (Flecainide Acetate), 150 MG PO Q12 Fluticasone Propionate (Nasal) (Flonase Allergy Relief), 2 SPRAYS DON DAILY Gabapentin (Gabapentin), 600 MG PO TID Irycjbhxvnq-Hqblusrumby-Tza C- (Glucosamine Chondroitin), 1 CAP PO BID Ipratropium-Albuterol (Combivent Respimat), 1 PUFFS INH QID Osimertinib Mesylate (Tagrisso), 80 MG PO DAILY Probiotic Product (Probiotic), 2 CAP PO DAILY Thyroid (Thyroid Extract), 60 MG PO DAILY Venlafaxine Hcl (Effexor Extended Rel), 150 MG PO DAILY Vitamin B Complex (Vitamin B Complex), 1 TAB PO DAILY [Magnesium Citrate], 625 MG PO DAILY Scheduled PRN Bumetanide (Bumetanide), 1-2 TABS PO DAILY PRN for FLUID RETENTION Diphenhydramine HCl (Diphenhydramine HCl), 25-50 MG PO HS PRN for Sleep Lorazepam (Lorazepam), 2 MG PO BID PRN for Anxiety Ondansetron (Ondansetron HCl), 8 MG PO Q4 PRN for Nausea or Vomiting Oxycodone Hcl (Oxycodone Hcl), 10 MG PO Q3H PRN for Pain Allergies Coded Allergies: No Known Allergies (Unverified , 11/18/14) Physical Exam Vital Signs Date Time Temp Pulse Resp B/P (MAP) Pulse Ox O2 Delivery O2 Flow Rate FiO2 11/27/17 01:08 73 19 133/68 100 Nasal Cannula 2.0 11/26/17 23:25 37.0 72 20 128/54 100 Nasal Cannula 2.0 Physical Exam GENERAL: Patient is in moderate distress and uncomfortable appearing. EYES: No scleral icterus, unremarkable pupils. ENT: Mucous membranes moist, no nasal congestion. NECK: No masses appreciated, no meningismus, trachea is midline. RESPIRATORY: No dyspnea. Clear to auscultation. No breath sounds of left lung. No wheeze, no rhonchi. CARDIOVASCULAR: Regular rate and rhythm. No murmurs, rubs, gallops appreciated. GASTROINTESTINAL: Abdomen soft, nontender, no peritonitis. Bowel sounds positive. No masses appreciated. BACK: No midline tenderness, no CVA tenderness EXTREMITIES: Normal motion all extremities, no cyanosis, 4+ edema bilaterally extending to the lower back. She had tenderness to the medial right thigh. Bruising to the right ankle. NEUROLOGIC: Alert and oriented, no acute motor or sensory deficits, no focal weakness, cranial nerves grossly intact. SKIN: No rash, no jaundice, no diaphoresis. Medical Decision & Procedures ER Provider Diagnostic Interpretation: X ray results are stated below per my interpretation: ONE VIEW CHEST: One View: Opacification of entire left chest similar to previous. Multiple missing ribs left chest, similar to previous, Multiple areas of lung metastases throughout the right lung field. No pneumothorax. RIGHT FEMUR: 4 View: No fracture, No dislocation. Stat Rad Radiology results and stated below per my review and radiologist interpretation: US VENOUS BILATERAL LOWER EXTREMITIES: No DVT demonstrated. Soft tissue edema Radiologist: Taylor Villagomez M.D. Laboratory Results 11/26/17 23:40 Red Blood Count 3.65, Mean Corpuscular Volume 81.9, Mean Corpuscular Hemoglobin 23.3, Mean Corpuscular Hemoglobin Concent 28.4, Mean Platelet Volume 10.0, Neutrophils (%) (Auto) 68.2, Lymphocytes (%) (Auto) 15.7, Monocytes (%) (Auto) 12.3, Eosinophils (%) (Auto) 3.4, Basophils (%) (Auto) 0.2, Neutrophils # (Auto ) 3.44, Lymphocytes # (Auto) 0.79, Monocytes # (Auto) 0.62, Eosinophils # (Auto ) 0.17, Basophils # (Auto) 0.01 11/26/17 23:40 Test 11/26/17 23:40 11/27/17 01:45 White Blood Count 5.04 K/uL (4.8-10.8) Red Blood Count 3.65 M/uL (4.2-5.4) Hemoglobin 8.5 g/dL (12.0-16.0) Hematocrit 29.9 % (37-47) Mean Corpuscular Volume 81.9 fL (80-100) Mean Corpuscular Hemoglobin 23.3 pg (25-34) Mean Corpuscular Hemoglobin Concent 28.4 g/dl (32-36) Platelet Count 327 K/uL (130-400) Mean Platelet Volume 10.0 fL (7.4-10.4) Neutrophils (%) (Auto) 68.2 % Lymphocytes (%) (Auto) 15.7 % Monocytes (%) (Auto) 12.3 % Eosinophils (%) (Auto) 3.4 % Basophils (%) (Auto) 0.2 % Neutrophils # (Auto) 3.44 K/uL (1.4-6.5) Lymphocytes # (Auto) 0.79 K/uL (1.2-3.4) Monocytes # (Auto) 0.62 K/uL (0.11-0.59) Eosinophils # (Auto) 0.17 K/uL (0-0.5) Basophils # (Auto) 0.01 K/uL (0-0.2) RDW Standard Deviation 51.6 fL (36.4-46.3) RDW Coefficient of Variation 17.0 % (11.5-14.5) Immature Granulocyte % (Auto) 0.2 % Immature Granulocyte # (Auto) 0.01 K/uL (0.00-0.02) Hypochromasia PRESENT Prothrombin Time 10.1 SECONDS (9.0-12.0) Prothromb Time International Ratio 1.0 (0.9-1.1) Activated Partial Thromboplast Time 28.5 SECONDS (21.0-31.0) Partial Thromboplastin Ratio 1.1 Anion Gap 5.0 mmol/L (3-11) Est Creatinine Clear Calc Drug Dose 98.7 ml/min Estimated GFR () 111.1 Estimated GFR (Non- 95.9 BUN/Creatinine Ratio 27.2 (10-20) Calcium Level 8.2 mg/dl (8.5-10.1) Magnesium Level 2.5 mg/dl (1.8-2.4) Total Bilirubin 0.1 mg/dl (0.2-1) Aspartate Amino Transf (AST/SGOT) 16 U/L (15-37) Alanine Aminotransferase (ALT/SGPT) 22 U/L (12-78) Alkaline Phosphatase 167 U/L (45-117) Total Creatine Kinase 84 U/L (26-192) Troponin I < 0.015 ng/ml (0-0.045) Pro-B-Type Natriuretic Peptide 568 pg/ml (0-900) Total Protein 7.6 gm/dl (6.4-8.2) Albumin 2.8 gm/dl (3.4-5.0) Globulin 4.8 gm/dl (2.5-4.0) Albumin/Globulin Ratio 0.6 (0.9-2) Thyroid Stimulating Hormone (TSH) 4.630 uIu/ml (0.300-4.500) Free Thyroxine 0.84 ng/dl (0.80-1.60) Digoxin Level 1.2 ng/ml (0.8-2.0) Urine Color YELLOW Urine Appearance CLEAR (CLEAR) Urine pH 8.5 (4.5-7.5) Urine Specific [place] 1.019 (1.000-1.030) Urine Protein NEG (NEG) Urine Glucose (UA) NEG (NEG) Urine Ketones NEG (NEG) Urine Occult Blood NEG (NEG) Urine Nitrite NEG (NEG) Urine Bilirubin NEG (NEG) Urine Urobilinogen NEG (NEG) Urine Leukocyte Esterase NEG (NEG) Urine WBC (Auto) 1-5 /hpf (0-5) Urine RBC (Auto) 0-4 /hpf (0-4) Urine Hyaline Casts (Auto) 1-5 /lpf (0-5) Urine Epithelial Cells (Auto) 10-20 /lpf (0-5) Urine Bacteria (Auto) NEG (NEG) Urine Random Creatinine 56.1 mg/dl Urine Random Total Protein 40.9 mg/dl (0-11.9) Laboratory results as reviewed by me. Medications Administered Medications (Trade) Dose Ordered Sig/Bhavesh Route Start Time Stop Time Status Last Admin Dose Admin Hydromorphone HCl (Dilaudid Inj) 1 mg NOW STAT IV 11/26/17 23:30 11/26/17 23:32 DC 11/26/17 23:39 1 MG Hydromorphone HCl (Dilaudid Inj) 1 mg Q30M PRN IV 11/26/17 23:30 11/27/17 05:03 DC 11/27/17 01:21 1 MG Furosemide (Lasix Inj) 40 mg NOW STAT IV 11/27/17 01:25 11/27/17 01:26 DC 11/27/17 01:49 40 MG Lorazepam (Ativan Inj) 1 mg NOW STAT IV 11/27/17 02:01 11/27/17 02:02 DC 11/27/17 02:01 1 MG ED Course 2324: The patient was evaluated in room B02. A complete history and physical exam was performed. 2330: Ordered Dilaudid Injection 1 mg IV, Dilaudid Injection 1 mg IV. 0028: The patient is currently at ultrasound 0124: I reevaluated the patient. She is unable to ambulate due to pain. She will get more pain medication. I updated her on the results and treatment plan, which she agrees to. 0125: Ordered Lasix Injection 40 mg IV. 0138: I discussed the patients case with Dr. Mckeon [facility] Hospitalist. She understands the patients condition and agrees to accept the patient. The patient will be evaluated for further management and care. Medical Decision Differential: DVT, CHF, Arterial Occlusion, Infectious, Joint Effusion, Trauma, Lymphedema, Idiopathic, Trauma, amongst other pathologies entertained. 57 yr old female with metastatic Lung CA on oral chemo arrives for rapidly worsening bilateral leg swelling and severe right thigh pain. No evidence of infection by exam. Pulses intact bilaterally thus I do not feel this is arterial occlusion. No evidence this is rhabdo by labs. US negative for DVTs in either leg. Femur xray unremarkable. CXR with numerous lesions likely being mets as well as opacification left lung field. No obvious evidence this is CHF either. LFTs/Albumin look OK. Unclear etiology but she is unable to ambulate because of this and I do not feel she can go home in current condition. As unable to even get up to go to bathroom a Lima was placed. Lasix ordered. Hospitalist consulted for further management of this patient. Of note, pain quite difficult to control and I added some Ativan as well for the anxiety of the situation. Medication Reconcilliation Current Medication List: was personally reviewed by me Blood Pressure Screening Patient's blood pressure: Normal blood pressure Consults Time Called: 137 Consulting Physician: Dr. Mckeon [facility] Hospitalist Returned Call: [phone] I discussed the patients case with Dr. Mckeon [facility] Hospitalist. She understands the patients condition and agrees to accept the patient. The patient will be evaluated for further management and care. Impression Primary Impression: Anasarca Additional Impression: Intractable pain Scribe Attestation The scribe's documentation has been prepared under my direction and personally reviewed by me in its entirety. I confirm that the note above accurately reflects all work, treatment, procedures, and medical decision making performed by me. Departure Information Dispostion Being Evaluated By Hospitalist Referrals Kiley Morton MD (PCP) Patient Instructions My [facility] Problem Qualifiers
[2017-11-26 23:57] LABS: HEMATOCRIT 29.9 % (37-47); HEMOGLOBIN 8.5 g/dL (12.0-16.0); MEAN CELL VOLUME 81.9 fL (80-100); MEAN CORPUSCULAR HEMOGLOBIN 23.3 pg (25-34); MEAN CORPUSCULAR HGB CONC 28.4 g/dl (32-36); PLATELET COUNT 327 K/uL (130-400); RED CELL DISTRIBUTION WIDTH SD 51.6 fL (36.4-46.3); WHITE BLOOD COUNT 5.04 K/uL (4.8-10.8)
[2017-11-27 00:18] LABS: ALBUMIN 2.8 gm/dl (3.4-5.0); ALKALINE PHOSPHATASE 167 U/L (45-117); ALT/SGPT 22 U/L (12-78); AST/SGOT 16 U/L (15-37); BLOOD UREA NITROGEN 19 mg/dl (7-18); CALCIUM 8.2 mg/dl (8.5-10.1); CARBON DIOXIDE 34 mmol/L (21-32); CREATININE 0.71 mg/dl (0.60-1.20); GLUCOSE 90 mg/dl (70-99); POTASSIUM 4.5 mmol/L (3.5-5.1); SODIUM 141 mmol/L (136-145); TOTAL PROTEIN 7.6 gm/dl (6.4-8.2)
[2017-11-27 00:20] LABS: BASO % 0.2 %; BASO ABS # 0.01 K/uL (0-0.2); EOS % 3.4 %; EOS ABS # 0.17 K/uL (0-0.5); IG# 0.01 K/uL (0.00-0.02); LYMPH % 15.7 %; LYMPH ABS # 0.79 K/uL (1.2-3.4); MONO % 12.3 %; MONO ABS # 0.62 K/uL (0.11-0.59); NEUT % 68.2 %; NEUT ABS # 3.44 K/uL (1.4-6.5); PTT PATIENT 28.5 SECONDS (21.0-31.0)
[2017-11-27] MEDS ORDERED: FUROSEMIDE 40 MG/4 ML VIAL IV STA (01:25)
[2017-11-27] MEDS ORDERED: LORAZEPAM 2 MG/ML 1 ML VIAL IV STA (02:01)
[2017-11-27] MEDS ORDERED: LIDOCAINE HCL 2% JELLY 30 ML TUBE EXT PRN (02:45)
[2017-11-27] MEDS ORDERED: ONDANSETRON INJ 2 MG/ML 2 ML VIAL IV PRN ×2 (02:45→15:45)
[2017-11-27] MEDS ORDERED: ACETAMINOPHEN 325 MG TAB PO PRN (02:45)
[2017-11-27 03:33] LABS: CREATININE RANDOM URINE 56.1 mg/dl; URINE PROTEIN (TOTAL)RANDOM UR 40.9 mg/dl (0-11.9)
[2017-11-27 04:22] VITALS: BP 100/65; PULSE 79; TEMP 36.7; O2SAT 99; BMI 41.2
[2017-11-27] MEDS ORDERED: HYDROmorphone INJ 0.5 MG/0.5 ML SYR ONE ×7 (04:22→20:18)
--- NOTE | 2017-11-27 05:59 | History and Physical ---
History & Physical Date & Time of Service: Nov 27, 2017 at 05:38 Chief Complaint: Anasarca, Intractable Pain Primary Care Physician: Kiley Morton MD History of Present Illness Source: patient Patient is a pleasant 57yo female with history of metastatic adenocarcinoma of the lung with metastases to bone and brain, atrial fibrillation, anxiety, depression, htn and pe presenting with severe right femur pain present in the groin and the inside of the leg with difficulty ambulating. Patient has a metastatic lesion at the site. Had recent PET scan which was stable. Pain started a few weeks ago when she was lifting her mother's wheelchair into her car. No relief with pain medication. Also complaining of severe bilateral LE edema over the last few weeks that. She is urinating, reports occasional foam in her urine. Denies progressive SOB. ER Course: Ativan, Lasix, Dilaudid Past Medical/Surgical History Medical Problems: Atrial fibrillation Acute pulmonary embolism Adenocarcinoma of lung Anemia Anxiety Bronchial obstruction Depression Hypertension Hydropneumothorax Hypothyroidism Surgical Problems: (1) Pleurodesis (2) S/P thoracentesis Eloesser flap left Family History Cancer Heart disease Social History Smoking Status: Former Smoker Alcohol Use: socially Drug Use: none Marital Status: Occupational Status: retired Allergies Coded Allergies: No Known Allergies (Unverified , 11/18/14) Home Medications Scheduled Ascorbic Acid (Vitamin C), 1,000 MG PO BID Celecoxib (Celecoxib), 100 MG PO BID Cholecalciferol (Vitamin D3), 6,000 INTER.UNIT PO DAILY Coenzyme Q10 (Ubidecarenone) (Co Q-10), 2 TABS PO BID Digoxin (Digoxin), 0.25 MG PO DAILY Fentanyl (Duragesic), 50 MCG TD CQ72HR Flecainide Acetate (Flecainide Acetate), 150 MG PO Q12 Fluticasone Propionate (Nasal) (Flonase Allergy Relief), 2 SPRAYS DON DAILY Gabapentin (Gabapentin), 600 MG PO TID Lpwjlehzdxt-Pdveaxgirkw-Vrb C- (Glucosamine Chondroitin), 1 CAP PO BID Ipratropium-Albuterol (Combivent Respimat), 1 PUFFS INH QID Osimertinib Mesylate (Tagrisso), 80 MG PO DAILY Probiotic Product (Probiotic), 2 CAP PO DAILY Thyroid (Thyroid Extract), 60 MG PO DAILY Venlafaxine Hcl (Effexor Extended Rel), 150 MG PO DAILY Vitamin B Complex (Vitamin B Complex), 1 TAB PO DAILY [Magnesium Citrate], 625 MG PO DAILY Scheduled PRN Bumetanide (Bumetanide), 1-2 TABS PO DAILY PRN for FLUID RETENTION Diphenhydramine HCl (Diphenhydramine HCl), 25-50 MG PO HS PRN for Sleep Lorazepam (Lorazepam), 2 MG PO BID PRN for Anxiety Ondansetron (Ondansetron HCl), 8 MG PO Q4 PRN for Nausea or Vomiting Oxycodone Hcl (Oxycodone Hcl), 10 MG PO Q3H PRN for Pain Review of Systems Constitutional: No fever, No chills Eyes: No worsening of vision ENT: No sore throat Respiratory: No cough, No shortness of breath Cardiovascular: No chest pain, No orthopnea Abdomen: No pain, No nausea, No vomiting, No diarrhea, No constipation Musculoskeletal: No joint pain Genitourinary - Female: No dysuria Neurologic: No weakness Endocrine: No fatigue Hematologic / Lymphatic: No abnormal bleeding/bruising Integumentary: No rash Physical Exam Vital Signs Date Time Temp Pulse Resp B/P (MAP) Pulse Ox O2 Delivery O2 Flow Rate FiO2 11/27/17 04:22 36.7 79 18 100/65 99 Nasal Cannula 2.0 11/27/17 03:28 77 17 119/60 99 11/27/17 03:25 77 17 119/60 99 Nasal Cannula 2.0 11/27/17 01:08 73 19 133/68 100 Nasal Cannula 2.0 11/26/17 23:25 37.0 72 20 128/54 100 Nasal Cannula 2.0 General: patient resting comfortably in bed, NAD, AA&O x 4 Skin: warm, dry, intact, no rashes or lesions HEENT: NC/AT, PERRL, EOMI, anicteric sclera, conjunctiva without injection, nares patent, moist mucus membranes, no oropharyngeal lesions, neck supple, trachea midline, no thyromegaly, no LAD Heart: +S1/S2, regular, no m/r/g Lungs: equal air entry bilaterally, no rales/rhonchi/wheezes, Eloesser flap left posterior chest wall - dressing in place c/d/i Abdomen: soft, NT/ND, no masses/organomegaly/ascites Extremities: warm, well perfused, no clubbing/cyanosis, 3+ pitting edema to thighs Neuro: grossly intact Diagnostics Laboratory Results Results Past 24 Hours Test 11/26/17 23:40 11/27/17 01:45 11/27/17 04:53 Range/Units White Blood Count 5.04 4.8-10.8 K/uL Red Blood Count 3.65 4.2-5.4 M/uL Hemoglobin 8.5 12.0-16.0 g/dL Hematocrit 29.9 37-47 % Mean Corpuscular Volume 81.9 80-100 fL Mean Corpuscular Hemoglobin 23.3 25-34 pg Mean Corpuscular Hemoglobin Concent 28.4 32-36 g/dl Platelet Count 327 130-400 K/uL Mean Platelet Volume 10.0 7.4-10.4 fL Neutrophils (%) (Auto) 68.2 % Lymphocytes (%) (Auto) 15.7 % Monocytes (%) (Auto) 12.3 % Eosinophils (%) (Auto) 3.4 % Basophils (%) (Auto) 0.2 % Neutrophils # (Auto) 3.44 1.4-6.5 K/uL Lymphocytes # (Auto) 0.79 1.2-3.4 K/uL Monocytes # (Auto) 0.62 0.11-0.59 K/uL Eosinophils # (Auto) 0.17 0-0.5 K/uL Basophils # (Auto) 0.01 0-0.2 K/uL RDW Standard Deviation 51.6 36.4-46.3 fL RDW Coefficient of Variation 17.0 11.5-14.5 % Immature Granulocyte % (Auto) 0.2 % Immature Granulocyte # (Auto) 0.01 0.00-0.02 K/uL Hypochromasia PRESENT Prothrombin Time 10.1 9.0-12.0 SECONDS Prothromb Time International Ratio 1.0 0.9-1.1 Activated Partial Thromboplast Time 28.5 21.0-31.0 SECONDS Partial Thromboplastin Ratio 1.1 Sodium Level 141 136-145 mmol/L Potassium Level 4.5 3.5-5.1 mmol/L Chloride Level 102 98-107 mmol/L Carbon Dioxide Level 34 21-32 mmol/L Anion Gap 5.0 3-11 mmol/L Blood Urea Nitrogen 19 7-18 mg/dl Creatinine 0.71 0.60-1.20 mg/dl Est Creatinine Clear Calc Drug Dose 98.7 ml/min Estimated GFR () 111.1 Estimated GFR (Non- 95.9 BUN/Creatinine Ratio 27.2 10-20 Random Glucose 90 70-99 mg/dl Calcium Level 8.2 8.5-10.1 mg/dl Magnesium Level 2.5 1.8-2.4 mg/dl Total Bilirubin 0.1 0.2-1 mg/dl Aspartate Amino Transf (AST/SGOT) 16 15-37 U/L Alanine Aminotransferase (ALT/SGPT) 22 12-78 U/L Alkaline Phosphatase 167 45-117 U/L Total Creatine Kinase 84 26-192 U/L Troponin I < 0.015 0-0.045 ng/ml Pro-B-Type Natriuretic Peptide 568 0-900 pg/ml Total Protein 7.6 6.4-8.2 gm/dl Albumin 2.8 3.4-5.0 gm/dl Globulin 4.8 2.5-4.0 gm/dl Albumin/Globulin Ratio 0.6 0.9-2 Thyroid Stimulating Hormone (TSH) 4.630 0.300-4.500 uIu/ml Free Thyroxine 0.84 0.80-1.60 ng/dl Digoxin Level 1.2 0.8-2.0 ng/ml Urine Color YELLOW Urine Appearance CLEAR CLEAR Urine pH 8.5 4.5-7.5 Urine Specific [place] 1.019 1.000-1.030 Urine Protein NEG NEG Urine Glucose (UA) NEG NEG Urine Ketones NEG NEG Urine Occult Blood NEG NEG Urine Nitrite NEG NEG Urine Bilirubin NEG NEG Urine Urobilinogen NEG NEG Urine Leukocyte Esterase NEG NEG Urine WBC (Auto) 1-5 0-5 /hpf Urine RBC (Auto) 0-4 0-4 /hpf Urine Hyaline Casts (Auto) 1-5 0-5 /lpf Urine Epithelial Cells (Auto) 10-20 0-5 /lpf Urine Bacteria (Auto) NEG NEG Urine Random Creatinine 56.1 mg/dl Urine Random Total Protein 40.9 0-11.9 mg/dl Diagnostic Radiology Femur X-ray CXR Doppler - negative for dvt Impression Assessment and Plan 57yo female with intractable right leg pain. 1. Intractable right leg pain - etiology unclear. Per report PET scan was stable. No evidence of fracture. -Pain control with Fentanyl, Celebrex, OxyCodone -Consider MRI 2. Anasarca - pitting edema 3+ to thighs -check UA for proteinuria, TSH, consider IVC imaging if central clot is suspected. 3. AFlutter - check EKG -Continue Digoxin (level pending) -Continue Flecainide -Patient not on anticoagulation 4. Stage V lung cancer -Continue Tagrisso -Oncology consultation - appreciate assistance with this case -Supplement O2 as needed 5. Hypertension - presently normotensive -Continue to monitor 6. Hypothyroid -Continue [place] thyroid 7. Depression/Anxiety - -Continue Lorazepam and Effexor 8. Ppx - Lovenox Advanced Directives Existing Living Will: No Existing Power of Edge Stainer Machine: No Resuscitation Status Full VTE Prophylaxis Will order VTE Prophylaxis: Yes
[2017-11-27] MEDS ORDERED: IV FLUIDS COMPLETED PRN (06:30)
--- NOTE | 2017-11-27 06:47 | DIAGNOSTIC IMAGING REPORT ---
BILATERAL LOWER EXTREMITY VENOUS DOPPLER HISTORY: Acute bilateral leg pain and swelling bilateral leg swelling COMPARISON STUDY: PET CT 11/02/2017 FINDINGS: There is normal compressibility, flow, and augmentation within the bilateral lower extremity deep venous systems. IMPRESSION: No sonographic evidence of deep venous thrombosis within the right or left lower extremity. Electronically signed by: Sky Mar M.D. 11/27/2017 6:46 AM Dictated Date/Time: 11/27/2017 6:45 AM
--- NOTE | 2017-11-27 06:57 | DIAGNOSTIC IMAGING REPORT ---
R FEMUR 2 VIEWS ROUTINE HISTORY: 57 years-old Female right thigh pain, lung CA with mets to femur acute right thigh pain with metastatic lung cancer COMPARISON: PET CT 11/02/2017, right femur radiographs 04/25/2017 TECHNIQUE: 2 views of the right femur FINDINGS: Patient pannus overlies the proximal right femur and limits the study. Ill-defined sclerotic metastatic lesion of the right intertrochanteric and subtrochanteric distribution redemonstrated. There is an acute pathologic fracture of the proximal femoral diaphysis which notably is seen involving the lateral cortex and medullary space. The medial cortex appears intact. Degenerative changes are noted about the knee. No new metastatic lesion identified. Mild right hip osteoarthritis. IMPRESSION: Acute pathologic fracture of the proximal femoral diaphysis extending through the previously described sclerotic metastatic lesion. The above report was generated using voice recognition software. It may contain grammatical, syntax or spelling errors. Electronically signed by: Sky Mar M.D. 11/27/2017 6:56 AM Dictated Date/Time: 11/27/2017 6:53 AM
[2017-11-27 07:18] VITALS: BP 93/58; PULSE 71; TEMP 36.7; O2SAT 99
--- NOTE | 2017-11-27 07:19 | DIAGNOSTIC IMAGING REPORT ---
CHEST ONE VIEW PORTABLE HISTORY: 57 years-old Female worsening shob, Lung CA acute shortness of breath with metastatic lung cancer COMPARISON: PET CT 11/02/2017, chest CT 07/06/2017, chest radiograph 09/04/2014 TECHNIQUE: Portable AP view of the chest FINDINGS: Cardiac silhouette appears enlarged. Near-complete opacification of the left hemithorax prior open left pneumonectomy. Pleural thickening about the left hemithorax is again noted with leftward mediastinal shift. Innumerable nodules throughout the right lung are again seen measuring up to 1.5 cm within the lateral right lung base. No pneumothorax, pleural effusion or overt pulmonary edema. Bones of the chest appear grossly intact. IMPRESSION: 1. Postoperative changes about the left hemithorax as above. 2. Multiple metastatic pulmonary nodules throughout the right lung redemonstrated. The above report was generated using voice recognition software. It may contain grammatical, syntax or spelling errors. Electronically signed by: Sky Mar M.D. 11/27/2017 7:17 AM Dictated Date/Time: 11/27/2017 7:15 AM
[2017-11-27] MEDS: FLUTICASONE PROPIONATE NA SPR 16 GM BTL NAE SCH (08:00)
[2017-11-27] MEDS: OXYCODONE HCL IR 5 MG TAB (IMMEDIATE RELEASE) PO PRN ×2 (08:28→21:52)
[2017-11-27] MEDS: GABAPENTIN 600 MG TAB PO SCH ×3 (08:30→21:59)
[2017-11-27] MEDS: FLECAINIDE ACETATE 100 MG TAB PO SCH ×2 (08:31→21:58)
[2017-11-27] MEDS: CeleBREX 100 MG CAP PO SCH ×2 (08:31→21:57)
[2017-11-27] MEDS: ASCORBIC ACID 500 MG TAB PO SCH ×2 (08:32→21:58)
[2017-11-27] MEDS: LACTOBACILLUS ACIDOPHILUS (FLORANEX) TAB PO SCH (08:33)
[2017-11-27] MEDS: ARMOUR THYROID 30 MG TAB PO SCH (08:33)
[2017-11-27] MEDS: VENLAFAXINE HCL XR 150 MG CAPXR PO SCH (08:34)
[2017-11-27] MEDS: IPRATROPIUM BROMIDE/ALBUTEROL respimat INH INH SCH ×4 (08:34→22:05)
[2017-11-27] MEDS ORDERED: ENOXAPARIN 40 MG/0.4 ML SYR SQ SCH (09:00)
[2017-11-27] MEDS: CHECK FENTANYL PATCH PLACEMENT SCH ×5 (09:47→23:49)
--- NOTE | 2017-11-27 10:19 | Oncology Consultation ---
Oncology/Heme Consultation Date of Consultation: Nov 27, 2017. Attending Physician: Catracho Mcgrath MD History of Present Illness Ms. Car is a 57 year old woman with a history of metastatic non-small cell lung cancer with an exon 19 EGFR mutation. She was diagnosed in 2013 and was started on Tarceva. She continued that until early 2015, when her disease began to progress. Since that time, she has been taking osimertinib, a second- generation EGFR TKI. She has done well overall and despite suboptimal drug compliance (she frequently skips doses due to fatigue), her scans have been generally stable, including her most recent scan on 11/02/17. She has noticed increasing exercise intolerance and general shortness of breath over the last few weeks. She previously used oxygen only at night but has more recently been requiring it during the day. She also is not able to take her dog for a walk due to SUERO. She denies any chest pain or palpitations. She also denies any cough or sputum production. During this time, she has noticed a marked increase in her lower extremity edema. She has always been prone to edema, but it has been worse in the last week or so. She denies any redness, tenderness, or warmth in either leg. For the past 1-2 weeks, she has noticed a marked increase in pain in her right leg/groin region. She first noticed it after lifting her mother's wheelchair into a car. The pain became unbearable yesterday, so she came to the ER. Dopplers of her legs were negative for VTE but an x-ray revealed an acute pathologic fracture of the proximal femoral diaphysis adjacent to an ill-defined sclerotic metastatic lesion of the right intertrochanteric and subtrochanteric distribution. Past Medical/Surgical History Medical Problems: (1) Anasarca Status: Acute (2) Cellulitis of left lower extremity Status: Acute (3) Hemoptysis Status: Acute (4) Intractable pain Status: Acute (5) Metastatic primary lung cancer Status: Acute Family History Cancer Heart disease Social History Smoking Status: Former Smoker Alcohol Use: socially Drug Use: none Marital Status: Housing Status: lives with family Occupation Status: retired Allergies Coded Allergies: No Known Allergies (Unverified , 11/18/14) Home Medications Scheduled Ascorbic Acid (Vitamin C), 1,000 MG PO BID Celecoxib (Celecoxib), 100 MG PO BID Cholecalciferol (Vitamin D3), 6,000 INTER.UNIT PO DAILY Coenzyme Q10 (Ubidecarenone) (Co Q-10), 2 TABS PO BID Digoxin (Digoxin), 0.25 MG PO DAILY Fentanyl (Duragesic), 50 MCG TD [id number] Flecainide Acetate (Flecainide Acetate), 150 MG PO Q12 Fluticasone Propionate (Nasal) (Flonase Allergy Relief), 2 SPRAYS DON DAILY Gabapentin (Gabapentin), 600 MG PO TID Oujbqayjuhz-Ddbpwmqqrso-Fih C- (Glucosamine Chondroitin), 1 CAP PO BID Ipratropium-Albuterol (Combivent Respimat), 1 PUFFS INH QID Osimertinib Mesylate (Tagrisso), 80 MG PO DAILY Probiotic Product (Probiotic), 2 CAP PO DAILY Thyroid (Thyroid Extract), 60 MG PO DAILY Venlafaxine Hcl (Effexor Extended Rel), 150 MG PO DAILY Vitamin B Complex (Vitamin B Complex), 1 TAB PO DAILY [Magnesium Citrate], 625 MG PO DAILY Scheduled PRN Bumetanide (Bumetanide), 1-2 TABS PO DAILY PRN for FLUID RETENTION Diphenhydramine HCl (Diphenhydramine HCl), 25-50 MG PO HS PRN for Sleep Lorazepam (Lorazepam), 2 MG PO BID PRN for Anxiety Ondansetron (Ondansetron HCl), 8 MG PO Q4 PRN for Nausea or Vomiting Oxycodone Hcl (Oxycodone Hcl), 10 MG PO Q3H PRN for Pain Current Inpatient Medications Current Inpatient Medications Medications (Trade) Dose Ordered Sig/Bhavesh Route Start Time Stop Time Status Last Admin Dose Admin Enoxaparin Sodium (Lovenox Inj) 40 mg Q24H SQ 11/27/17 09:00 12/27/17 08:59 Future Hold Acetaminophen (Tylenol Tab) 650 mg Q4H PRN PO 11/27/17 02:45 12/27/17 02:44 Ondansetron HCl (Zofran Inj) 4 mg Q6H PRN IV 11/27/17 02:45 12/27/17 02:44 Celecoxib (CeleBREX CAP) 100 mg BID PO 11/27/17 08:00 12/27/17 08:59 11/27/17 08:31 100 MG Digoxin (Lanoxin Tab) 0.25 mg DAILY@1600 PO 11/27/17 16:00 12/27/17 15:59 Diphenhydramine HCl (Benadryl Cap) 25 mg HS PRN PO 11/27/17 02:45 12/27/17 02:44 Fentanyl (Duragesic Patch) 50 mcg Q72H TD 11/27/17 12:00 12/11/17 11:59 Fluticasone Propionate (Flonase Nasal [place]) 2 sprays DAILY DON 11/27/17 08:00 12/27/17 08:59 Gabapentin (Neurontin Tab) 600 mg TID PO 11/27/17 08:00 12/27/17 08:59 11/27/17 08:30 600 MG Albuterol/ Ipratropium (Combivent Respimat Inh) 1 puffs QID INH 11/27/17 08:00 12/27/17 08:59 11/27/17 08:34 1 PUFFS Lorazepam (Ativan Tab) 2 mg BID PRN PO 11/27/17 02:45 12/27/17 02:44 Venlafaxine HCl (effeXOR EXTENDED REL CAP) 150 mg DAILY PO 11/27/17 08:00 12/27/17 08:59 11/27/17 08:34 150 MG Vitamin B Complex (Vitamin B Complex) 1 tab DAILY PO 11/27/17 08:00 12/27/17 08:59 Ascorbic Acid (Vitamin C Tab) 1,000 mg BID PO 11/27/17 08:00 12/27/17 08:59 11/27/17 08:32 1,000 MG Flecainide Acetate (Tambocor Tab) 150 mg Q12 PO 11/27/17 09:00 12/27/17 08:59 11/27/17 08:31 150 MG Miscellaneous Information (Order Awaiting Action) 1 ea QS N/A 11/27/17 08:00 12/27/17 07:59 11/27/17 08:40 1 EA Oxycodone HCl (Roxicodone Immediate Rel Tab) 10 mg Q3H PRN PO 11/27/17 02:45 12/27/17 02:44 11/27/17 08:28 10 MG Lactobacillus Acidophilus (Floranex Tab) 4 tab DAILY PO 11/27/17 08:00 12/27/17 08:59 11/27/17 08:33 4 TAB Thyroid ([place] Thyroid Tab) 60 mg DAILY PO 11/27/17 08:00 12/27/17 08:59 11/27/17 08:33 60 MG Miscellaneous Information (Order Awaiting Action) 1 ea QS N/A 11/27/17 08:00 12/27/17 07:59 Lidocaine HCl (Xylocaine Jelly 2%) 2 ml QS PRN EXT 11/27/17 02:45 12/27/17 02:44 Miscellaneous (Iv Fluids Completed) 1 ea PRN PRN N/A 11/27/17 06:30 11/27/18 06:29 Miscellaneous (Fentanyl Patch Remove & Waste) 1 ea Q72H N/A 11/27/17 11:59 12/27/17 11:58 Miscellaneous Information (Check Fentanyl Patch Placement) 1 ea QS N/A 11/27/17 16:00 12/27/17 15:59 11/27/17 09:47 1 EA Review of Systems Constitutional: + weakness, + fatigue, No fever, No chills Respiratory: + shortness of breath, + dyspnea on exertion, No cough, No sputum Cardiovascular: + edema, No chest pain, No palpitations Abdomen: No pain, No nausea, No vomiting Musculoskeletal: + joint pain (right groin/hip), + muscle pain Neurologic: No weakness, No numbness/tingling Hematologic / Lymphatic: No abnormal bleeding/bruising Integumentary: No rash Physical Exam Date Time Temp Pulse Resp B/P (MAP) Pulse Ox O2 Delivery O2 Flow Rate FiO2 11/27/17 08:30 Nasal Cannula 2.0 11/27/17 07:18 36.7 71 18 93/58 (70) 99 Nasal Cannula 2.0 11/27/17 04:22 36.7 79 18 100/65 99 Nasal Cannula 2.0 11/27/17 03:28 77 17 119/60 99 11/27/17 03:25 77 17 119/60 99 Nasal Cannula 2.0 11/27/17 01:08 73 19 133/68 100 Nasal Cannula 2.0 11/26/17 23:25 37.0 72 20 128/54 100 Nasal Cannula 2.0 General Appearance: WD/WN, no apparent distress ENT: pharynx normal Respiratory/Chest: chest non-tender, lungs clear Cardiovascular: regular rate, rhythm Abdomen/GI: non tender, soft Extremities/Musculoskelatal: + pedal edema (2+ pitting edema to the level of her thighs bilaterally) Neurologic/Psych: no motor/sensory deficits, alert, oriented x 3 Skin: no rash Laboratory Results Last 24 Hours Test 11/26/17 23:40 11/27/17 01:45 11/27/17 06:50 White Blood Count 5.04 K/uL Red Blood Count 3.65 M/uL Hemoglobin 8.5 g/dL Hematocrit 29.9 % Mean Corpuscular Volume 81.9 fL Mean Corpuscular Hemoglobin 23.3 pg Mean Corpuscular Hemoglobin Concent 28.4 g/dl Platelet Count 327 K/uL Mean Platelet Volume 10.0 fL Neutrophils (%) (Auto) 68.2 % Lymphocytes (%) (Auto) 15.7 % Monocytes (%) (Auto) 12.3 % Eosinophils (%) (Auto) 3.4 % Basophils (%) (Auto) 0.2 % Neutrophils # (Auto) 3.44 K/uL Lymphocytes # (Auto) 0.79 K/uL Monocytes # (Auto) 0.62 K/uL Eosinophils # (Auto) 0.17 K/uL Basophils # (Auto) 0.01 K/uL RDW Standard Deviation 51.6 fL RDW Coefficient of Variation 17.0 % Immature Granulocyte % (Auto) 0.2 % Immature Granulocyte # (Auto) 0.01 K/uL Hypochromasia PRESENT Prothrombin Time 10.1 SECONDS Prothromb Time International Ratio 1.0 Activated Partial Thromboplast Time 28.5 SECONDS Partial Thromboplastin Ratio 1.1 Sodium Level 141 mmol/L Potassium Level 4.5 mmol/L Chloride Level 102 mmol/L Carbon Dioxide Level 34 mmol/L Anion Gap 5.0 mmol/L Blood Urea Nitrogen 19 mg/dl Creatinine 0.71 mg/dl Est Creatinine Clear Calc Drug Dose 98.7 ml/min Estimated GFR () 111.1 Estimated GFR (Non- 95.9 BUN/Creatinine Ratio 27.2 Random Glucose 90 mg/dl Calcium Level 8.2 mg/dl Magnesium Level 2.5 mg/dl Total Bilirubin 0.1 mg/dl Aspartate Amino Transf (AST/SGOT) 16 U/L Alanine Aminotransferase (ALT/SGPT) 22 U/L Alkaline Phosphatase 167 U/L Total Creatine Kinase 84 U/L Troponin I < 0.015 ng/ml Pro-B-Type Natriuretic Peptide 568 pg/ml Total Protein 7.6 gm/dl Albumin 2.8 gm/dl Globulin 4.8 gm/dl Albumin/Globulin Ratio 0.6 Thyroid Stimulating Hormone (TSH) 4.630 uIu/ml Free Thyroxine 0.84 ng/dl Digoxin Level 1.2 ng/ml Urine Color YELLOW Urine Appearance CLEAR Urine pH 8.5 Urine Specific [place] 1.019 Urine Protein NEG Urine Glucose (UA) NEG Urine Ketones NEG Urine Occult Blood NEG Urine Nitrite NEG Urine Bilirubin NEG Urine Urobilinogen NEG Urine Leukocyte Esterase NEG Urine WBC (Auto) 1-5 /hpf Urine RBC (Auto) 0-4 /hpf Urine Hyaline Casts (Auto) 1-5 /lpf Urine Epithelial Cells (Auto) 10-20 /lpf Urine Bacteria (Auto) NEG Urine Random Creatinine 56.1 mg/dl Urine Random Total Protein 40.9 mg/dl Hepatitis C Antibody Screen NEG Assessment & Plan Ms. Car has an acute pathologic fracture of her right thigh. Orthopedic surgery have been consulted and will evaluate the patient today. Her most recent scan described this lesion as stable in size and appearance, so it's not clear this represents progressive disease, particularly since she gives a history of trauma. Much of the edema in her right leg appears to be attributable to this issue. She has 2+ pitting edema in both lower legs, though she also has venous stasis changes and varicosities, suggesting this may be chronic. Still, Tagrisso can sometimes cause cardiomyopathy and she has noticed a somewhat acute change, so I might consider an echo. It can also rarely cause pneumonitis, though her presentation and CXR are not really consistent with this. She's also been on the drug for 2 years, making a drug reaction overall less likely. Some of the SOB may be drug-related asthenia, which has been an issue for her all along.
--- NOTE | 2017-11-27 10:23 | Medical Consult ---
Consultation Date of Consultation: Nov 27, 2017. Attending Physician: Catracho Mcgrath MD Reason for Consultation: right hip pain Past Medical/Surgical History Medical Problems: (1) Anasarca Status: Acute (2) Cellulitis of left lower extremity Status: Acute (3) Hemoptysis Status: Acute (4) Intractable pain Status: Acute (5) Metastatic primary lung cancer Status: Acute Family History Cancer Heart disease Social History Smoking Status: Former Smoker Alcohol Use: socially Drug Use: none Marital Status: Housing Status: lives with family Occupation Status: retired Allergies Coded Allergies: No Known Allergies (Unverified , 11/18/14) Current Inpatient Medications Current Inpatient Medications Medications (Trade) Dose Ordered Sig/Bhavesh Route Start Time Stop Time Status Last Admin Dose Admin Enoxaparin Sodium (Lovenox Inj) 40 mg Q24H SQ 11/27/17 09:00 12/27/17 08:59 Future Hold Acetaminophen (Tylenol Tab) 650 mg Q4H PRN PO 11/27/17 02:45 12/27/17 02:44 Ondansetron HCl (Zofran Inj) 4 mg Q6H PRN IV 11/27/17 02:45 12/27/17 02:44 Celecoxib (CeleBREX CAP) 100 mg BID PO 11/27/17 08:00 12/27/17 08:59 11/27/17 08:31 100 MG Digoxin (Lanoxin Tab) 0.25 mg DAILY@1600 PO 11/27/17 16:00 12/27/17 15:59 Diphenhydramine HCl (Benadryl Cap) 25 mg HS PRN PO 11/27/17 02:45 12/27/17 02:44 Fentanyl (Duragesic Patch) 50 mcg Q72H TD 11/27/17 12:00 12/11/17 11:59 Fluticasone Propionate (Flonase Nasal [place]) 2 sprays DAILY DNO 11/27/17 08:00 12/27/17 08:59 Gabapentin (Neurontin Tab) 600 mg TID PO 11/27/17 08:00 12/27/17 08:59 11/27/17 08:30 600 MG Albuterol/ Ipratropium (Combivent Respimat Inh) 1 puffs QID INH 11/27/17 08:00 12/27/17 08:59 11/27/17 08:34 1 PUFFS Lorazepam (Ativan Tab) 2 mg BID PRN PO 11/27/17 02:45 12/27/17 02:44 Venlafaxine HCl (effeXOR EXTENDED REL CAP) 150 mg DAILY PO 11/27/17 08:00 12/27/17 08:59 11/27/17 08:34 150 MG Vitamin B Complex (Vitamin B Complex) 1 tab DAILY PO 11/27/17 08:00 12/27/17 08:59 Ascorbic Acid (Vitamin C Tab) 1,000 mg BID PO 11/27/17 08:00 12/27/17 08:59 11/27/17 08:32 1,000 MG Flecainide Acetate (Tambocor Tab) 150 mg Q12 PO 11/27/17 09:00 12/27/17 08:59 11/27/17 08:31 150 MG Miscellaneous Information (Order Awaiting Action) 1 ea QS N/A 11/27/17 08:00 12/27/17 07:59 11/27/17 08:40 1 EA Oxycodone HCl (Roxicodone Immediate Rel Tab) 10 mg Q3H PRN PO 11/27/17 02:45 12/27/17 02:44 11/27/17 08:28 10 MG Lactobacillus Acidophilus (Floranex Tab) 4 tab DAILY PO 11/27/17 08:00 12/27/17 08:59 11/27/17 08:33 4 TAB Thyroid ([place] Thyroid Tab) 60 mg DAILY PO 11/27/17 08:00 12/27/17 08:59 11/27/17 08:33 60 MG Miscellaneous Information (Order Awaiting Action) 1 ea QS N/A 11/27/17 08:00 12/27/17 07:59 Lidocaine HCl (Xylocaine Jelly 2%) 2 ml QS PRN EXT 11/27/17 02:45 12/27/17 02:44 Miscellaneous (Iv Fluids Completed) 1 ea PRN PRN N/A 11/27/17 06:30 11/27/18 06:29 Miscellaneous (Fentanyl Patch Remove & Waste) 1 ea Q72H N/A 11/27/17 11:59 12/27/17 11:58 Miscellaneous Information (Check Fentanyl Patch Placement) 1 ea QS N/A 11/27/17 16:00 12/27/17 15:59 11/27/17 09:47 1 EA Review of Systems Constitutional: No fever, No chills Respiratory: + shortness of breath Cardiovascular: No chest pain Abdomen: No nausea, No vomiting Musculoskeletal: + joint pain, + problem reported (right hip pain) Physical Exam Date Time Temp Pulse Resp B/P (MAP) Pulse Ox O2 Delivery O2 Flow Rate FiO2 11/27/17 08:30 Nasal Cannula 2.0 11/27/17 07:18 36.7 71 18 93/58 (70) 99 Nasal Cannula 2.0 11/27/17 04:22 36.7 79 18 100/65 99 Nasal Cannula 2.0 11/27/17 03:28 77 17 119/60 99 11/27/17 03:25 77 17 119/60 99 Nasal Cannula 2.0 11/27/17 01:08 73 19 133/68 100 Nasal Cannula 2.0 11/26/17 23:25 37.0 72 20 128/54 100 Nasal Cannula 2.0 General Appearance: no apparent distress Back: + pertinent finding (left posterior chest wall wound, Clean/dry/intact dressing) Extremities/Musculoskelatal: + swelling, + pertinent finding (LE pitting edema , right hip/femur tender to palpation) Laboratory Results Last 24 Hours Test 11/26/17 23:40 11/27/17 01:45 11/27/17 06:50 White Blood Count 5.04 K/uL Red Blood Count 3.65 M/uL Hemoglobin 8.5 g/dL Hematocrit 29.9 % Mean Corpuscular Volume 81.9 fL Mean Corpuscular Hemoglobin 23.3 pg Mean Corpuscular Hemoglobin Concent 28.4 g/dl Platelet Count 327 K/uL Mean Platelet Volume 10.0 fL Neutrophils (%) (Auto) 68.2 % Lymphocytes (%) (Auto) 15.7 % Monocytes (%) (Auto) 12.3 % Eosinophils (%) (Auto) 3.4 % Basophils (%) (Auto) 0.2 % Neutrophils # (Auto) 3.44 K/uL Lymphocytes # (Auto) 0.79 K/uL Monocytes # (Auto) 0.62 K/uL Eosinophils # (Auto) 0.17 K/uL Basophils # (Auto) 0.01 K/uL RDW Standard Deviation 51.6 fL RDW Coefficient of Variation 17.0 % Immature Granulocyte % (Auto) 0.2 % Immature Granulocyte # (Auto) 0.01 K/uL Hypochromasia PRESENT Prothrombin Time 10.1 SECONDS Prothromb Time International Ratio 1.0 Activated Partial Thromboplast Time 28.5 SECONDS Partial Thromboplastin Ratio 1.1 Sodium Level 141 mmol/L Potassium Level 4.5 mmol/L Chloride Level 102 mmol/L Carbon Dioxide Level 34 mmol/L Anion Gap 5.0 mmol/L Blood Urea Nitrogen 19 mg/dl Creatinine 0.71 mg/dl Est Creatinine Clear Calc Drug Dose 98.7 ml/min Estimated GFR () 111.1 Estimated GFR (Non- 95.9 BUN/Creatinine Ratio 27.2 Random Glucose 90 mg/dl Calcium Level 8.2 mg/dl Magnesium Level 2.5 mg/dl Total Bilirubin 0.1 mg/dl Aspartate Amino Transf (AST/SGOT) 16 U/L Alanine Aminotransferase (ALT/SGPT) 22 U/L Alkaline Phosphatase 167 U/L Total Creatine Kinase 84 U/L Troponin I < 0.015 ng/ml Pro-B-Type Natriuretic Peptide 568 pg/ml Total Protein 7.6 gm/dl Albumin 2.8 gm/dl Globulin 4.8 gm/dl Albumin/Globulin Ratio 0.6 Thyroid Stimulating Hormone (TSH) 4.630 uIu/ml Free Thyroxine 0.84 ng/dl Digoxin Level 1.2 ng/ml Urine Color YELLOW Urine Appearance CLEAR Urine pH 8.5 Urine Specific [place] 1.019 Urine Protein NEG Urine Glucose (UA) NEG Urine Ketones NEG Urine Occult Blood NEG Urine Nitrite NEG Urine Bilirubin NEG Urine Urobilinogen NEG Urine Leukocyte Esterase NEG Urine WBC (Auto) 1-5 /hpf Urine RBC (Auto) 0-4 /hpf Urine Hyaline Casts (Auto) 1-5 /lpf Urine Epithelial Cells (Auto) 10-20 /lpf Urine Bacteria (Auto) NEG Urine Random Creatinine 56.1 mg/dl Urine Random Total Protein 40.9 mg/dl Hepatitis C Antibody Screen NEG Assessment & Plan right femur fracture Anasarca Metastic primary lung cancer Plan for MRI to evaluate right femur pathologic METS fracture Will most likely plan for right femur troch nail pending MRI. Discussed risks and benefits of surgery vs non surgery. She would like to proceed with surgery and all questions were answered for the patient.
--- NOTE | 2017-11-27 10:43 | Progress Note ---
Subjective Date of Service: Nov 27, 2017. Subjective Pt evaluation today including: conversation w/ patient, physical exam, chart review, lab review, review of studies (right femur x-rays, etc), conversation w / technology consultant (orthopedics, heme/onc), review of inpatient medication list Pain: right proximal thigh/groin PO Intake: npo Voiding: seals catheter in place patient reports right groin pain x 2 weeks also with edema x 3 days, worse on right she uses home O2 2 liters via NC and has been using it fairly regularly for several months including at night-time she has had dyspnea on exertion for several months no chest pain she reports the LE edema is improved today Problem List Medical Problems: (1) Anasarca Status: Acute (2) Cellulitis of left lower extremity Status: Acute (3) Hemoptysis Status: Acute (4) Intractable pain Status: Acute (5) Metastatic primary lung cancer Status: Acute Objective Vital Signs Date Time Temp Pulse Resp B/P (MAP) Pulse Ox O2 Delivery O2 Flow Rate FiO2 11/27/17 08:30 Nasal Cannula 2.0 11/27/17 07:18 36.7 71 18 93/58 (70) 99 Nasal Cannula 2.0 11/27/17 04:22 36.7 79 18 100/65 99 Nasal Cannula 2.0 11/27/17 03:28 77 17 119/60 99 11/27/17 03:25 77 17 119/60 99 Nasal Cannula 2.0 11/27/17 01:08 73 19 133/68 100 Nasal Cannula 2.0 11/26/17 23:25 37.0 72 20 128/54 100 Nasal Cannula 2.0 Physical Exam General Appearance: no apparent distress, + obese ENT: pharynx normal Neck: no JVD Respiratory/Chest: no respiratory distress, no accessory muscle use, + decreased breath sounds (left ) Cardiovascular: regular rate, rhythm, no gallop, + systolic murmur (2/6 LUSB) Abdomen: normal bowel sounds, non tender, soft, no organomegaly Extremities: + swelling (b/l legs, especially the right thigh), + pertinent finding (right leg is mildly flexed and externally rotated) Neurologic/Psychiatric: alert, oriented x 3 Skin: + pertinent finding (varicose veins b/l legs) Comments: fingernail clubbing Laboratory Results Last 24 Hours Test 11/26/17 23:40 7/22/18 01:45 11/27/17 06:50 White Blood Count 5.04 K/uL Red Blood Count 3.65 M/uL Hemoglobin 8.5 g/dL Hematocrit 29.9 % Mean Corpuscular Volume 81.9 fL Mean Corpuscular Hemoglobin 23.3 pg Mean Corpuscular Hemoglobin Concent 28.4 g/dl Platelet Count 327 K/uL Mean Platelet Volume 10.0 fL Neutrophils (%) (Auto) 68.2 % Lymphocytes (%) (Auto) 15.7 % Monocytes (%) (Auto) 12.3 % Eosinophils (%) (Auto) 3.4 % Basophils (%) (Auto) 0.2 % Neutrophils # (Auto) 3.44 K/uL Lymphocytes # (Auto) 0.79 K/uL Monocytes # (Auto) 0.62 K/uL Eosinophils # (Auto) 0.17 K/uL Basophils # (Auto) 0.01 K/uL RDW Standard Deviation 51.6 fL RDW Coefficient of Variation 17.0 % Immature Granulocyte % (Auto) 0.2 % Immature Granulocyte # (Auto) 0.01 K/uL Hypochromasia PRESENT Prothrombin Time 10.1 SECONDS Prothromb Time International Ratio 1.0 Activated Partial Thromboplast Time 28.5 SECONDS Partial Thromboplastin Ratio 1.1 Sodium Level 141 mmol/L Potassium Level 4.5 mmol/L Chloride Level 102 mmol/L Carbon Dioxide Level 34 mmol/L Anion Gap 5.0 mmol/L Blood Urea Nitrogen 19 mg/dl Creatinine 0.71 mg/dl Est Creatinine Clear Calc Drug Dose 98.7 ml/min Estimated GFR () 111.1 Estimated GFR (Non- 95.9 BUN/Creatinine Ratio 27.2 Random Glucose 90 mg/dl Calcium Level 8.2 mg/dl Magnesium Level 2.5 mg/dl Total Bilirubin 0.1 mg/dl Aspartate Amino Transf (AST/SGOT) 16 U/L Alanine Aminotransferase (ALT/SGPT) 22 U/L Alkaline Phosphatase 167 U/L Total Creatine Kinase 84 U/L Troponin I < 0.015 ng/ml Pro-B-Type Natriuretic Peptide 568 pg/ml Total Protein 7.6 gm/dl Albumin 2.8 gm/dl Globulin 4.8 gm/dl Albumin/Globulin Ratio 0.6 Thyroid Stimulating Hormone (TSH) 4.630 uIu/ml Free Thyroxine 0.84 ng/dl Digoxin Level 1.2 ng/ml Urine Color YELLOW Urine Appearance CLEAR Urine pH 8.5 Urine Specific [place] 1.019 Urine Protein NEG Urine Glucose (UA) NEG Urine Ketones NEG Urine Occult Blood NEG Urine Nitrite NEG Urine Bilirubin NEG Urine Urobilinogen NEG Urine Leukocyte Esterase NEG Urine WBC (Auto) 1-5 /hpf Urine RBC (Auto) 0-4 /hpf Urine Hyaline Casts (Auto) 1-5 /lpf Urine Epithelial Cells (Auto) 10-20 /lpf Urine Bacteria (Auto) NEG Urine Random Creatinine 56.1 mg/dl Urine Random Total Protein 40.9 mg/dl Hepatitis C Antibody Screen NEG Assessment and Plan 57yo female - 1. right proximal femur fracture, presumed pathological due to known metastatic disease in that region - orthopedic consultation requested with Dr. Ingram. Keep NPO for potential surgery later today. Given the heart murmur, recent LE edema, etc will obtain echocardiogram. However, I don't feel she is in any acute CHF. Although she reports worsening dyspnea over the last few months this is likely due to her worsening metastatic disease given her cxr and CT chest findings showing numerous mets in both lungs. She has fingernail clubbing suggesting chronic hypoxia as well. She has an IVC filter in place making PE(s) less likely. I don't see evidence of pneumonia or infectious process. Bedrest, pain control. 2. stage 4 adenocarcinoma of the lung - s/p left lung resection 4 years ago, ongoing oral chemo. Appreciate heme/onc consultation. 3. h/o PE - records indicate PEs back in 2013. She is no longer on anticoagulation. She has an IVC filter. 4. anemia - likely 2nd to cancer. Will check iron studies, b12, folate in am if not already done in the last few months. 5. chronic hypoxic respiratory failure on home o2 - stable. 6. murmur - tricuspid regurg? ? other? echo. 7. chronic pain syndrome - cont fentanyl patch. 8. h/o a. fib - remains in NSR; EKG wnl; consider placing patient on tele post- op due to high risk of PAF, etc. Cont fleicanide. 9. DVT proph - hold chemical means until after surgery. 10. FEN - saline lock for now, lytes stable, NPO for probable surgery today. 11. HTN - controlled. 12. hypothyroidism - TSH mildly high, FT4 borderline low. Consider titration of thyroid meds. Once echo is complete I believe she is likely optimized from a cardiopulmonary standpoint. Continued [facility] stay due to: inadequate po fluid intake, inadequate oral pain control, voiding difficulties, ambulation difficulties, multiple IV medications needed
[2017-11-27] MEDS: VITAMIN B COMPLEX TAB PO SCH (10:49)
--- NOTE | 2017-11-27 11:27 | ECHOCARDIOGRAM REPORT ---
*NOTICE TO RECEIVING CONSTITUTION PARTY AGENCY This information is strictly Confidential and protected under [place] law. [place] law prohibits you from making any further disclosure of this information unless further disclosure is expressly permitted by the written consent of the person to whom it pertains or is authorized by law. A general authorization for the release of medical or other information is not sufficient for this purpose. Hospital accepts no responsibility if the information is made available to any other person, INCLUDING THE PATIENT. Interpretation Summary * Name: AUGIE CRUZ Study Date: 11/27/2017 10:18 AM BP: 93/58 mmHg * Patient Location: .4E\S\E421\S\1 HR: 71 * : 1960 (M/d/yyyy) Gender: Female Height: 61 in * Age: 57 yrs Ethnicity: CA Weight: 217 lb * Ordering Physician: Catracho Mcgrath * Performed By: Obdulia Mckeon RDCS * * Reason For Study: EDEMA OF LEGS, MURMUR, METASTATIC CANCER * BSA: 2.0 m2 * -- Conclusions -- * Left ventricular systolic function is normal. * Grade I diastolic dysfunction, (abnormal relaxation pattern). * Right ventricular systolic pressure is elevated at 40-50mmHg. Procedure Details * A complete two-dimensional transthoracic echocardiogram was performed (2D, M-mode, Doppler and color flow Doppler). * A contrast injection of Definity was performed to improve assessment of LV function. * Contrast was injected into an intravenous site in the left arm. * One vial of Definity ultrasound contrast was diluted in normal saline to a total volume of 10 ml. A total of '3' ml of solution was administered during imaging. * Lot # [id number] of Definity utilized for procedure. * Expiration date 09/24. * The attending nurse who injected the contrast agent was LUCERO CASTRO RN. Left Ventricle * The left ventricle is normal in size. * There is normal left ventricular wall thickness. * Ejection Fraction = 60-65%. * Left ventricular systolic function is normal. * Grade I diastolic dysfunction, (abnormal relaxation pattern). * The left ventricular wall motion is normal. Right Ventricle * The right ventricle is normal in size and function. * The right ventricular systolic function is normal as assessed by tricuspid annular plane systolic excursion (TAPSE) (normal >1.5 cm). Atria * The left atrial size is normal. * Right atrial size is normal. Mitral Valve * The mitral valve anatomy is normal. * Significant mitral regurgitation is absent. Tricuspid Valve * The tricuspid valve is not well visualized, but is grossly normal. * There is trace tricuspid regurgitation. * Right ventricular systolic pressure is elevated at 40-50mmHg. Aortic Valve * The aortic valve is normal in structure and function. * The aortic valve is trileaflet. * No hemodynamically significant valvular aortic stenosis. * There is no significant aortic regurgitation. Pulmonic Valve * The pulmonic valve is not well seen, but is grossly normal. * Trace pulmonic valvular regurgitation. Pericardium/Pleural * There is no pericardial effusion. Great Vessels * Normal inferior vena cava diameter and respiratory variation suggests normal central venous pressure. MMode 2D Measurements and Calculations IVSd 1.8 cm IVSs 1.8 cm LVIDd 4.4 cm LVIDs 2.9 cm LVPWd 1.1 cm LVPWs 1.3 cm IVS/LVPW 1.7 FS 34.2 % EDV(Teich) 85.8 ml ESV(Teich) 31.4 ml EF(Teich) 63.4 % EDV(cubed) 82.8 ml ESV(cubed) 23.6 ml EF(cubed) 71.5 % % IVS thick 2.2 % % LVPW thick 17.4 % LV mass(C)d 244.0 grams LV mass(C)dI 124.7 grams/m\S\2 LV mass(C)s 156.1 grams LV mass(C)sI 79.8 grams/m\S\2 SV(Teich) 54.4 ml SI(Teich) 27.8 ml/m\S\2 SV(cubed) 59.2 ml SI(cubed) 30.3 ml/m\S\2 LA dimension 3.9 cm asc Aorta Diam 3.4 cm LVOT diam 1.7 cm LVOT area 2.3 cm\S\2 LVAd ap4 34.7 cm\S\2 LVLd ap4 8.0 cm EDV(MOD-sp4) 122.2 ml EDV(sp4-el) 128.6 ml LVAs ap4 18.5 cm\S\2 LVLs ap4 6.4 cm ESV(MOD-sp4) 46.9 ml ESV(sp4-el) 45.3 ml EF(MOD-sp4) 61.6 % EF(sp4-el) 64.8 % LVAd ap2 26.8 cm\S\2 LVLd ap2 7.1 cm EDV(MOD-sp2) 81.2 ml EDV(sp2-el) 86.1 ml LVAs ap2 15.6 cm\S\2 LVLs ap2 6.3 cm ESV(MOD-sp2) 30.0 ml ESV(sp2-el) 32.7 ml EF(MOD-sp2) 63.0 % EF(sp2-el) 62.0 % LVLd %diff -12.75 % EDV(MOD-bp) 105.1 ml LVLs %diff -0.67 % ESV(MOD-bp) 36.1 ml EF(MOD-bp) 65.6 % SV(MOD-sp4) 75.3 ml SI(MOD-sp4) 38.5 ml/m\S\2 SV(MOD-sp2) 51.2 ml SI(MOD-sp2) 26.2 ml/m\S\2 SV(MOD-bp) 68.9 ml SI(MOD-bp) 35.2 ml/m\S\2 SV(sp4-el) 83.4 ml SI(sp4-el) 42.6 ml/m\S\2 SV(sp2-el) 53.4 ml SI(sp2-el) 27.3 ml/m\S\2 Doppler Measurements and Calculations MV E max jane 85.8 cm/sec MV A max jane 103.0 cm/sec MV E/A 0.83 MV dec time 0.19 sec Ao V2 max 120.8 cm/sec Ao max PG 5.8 mmHg Ao max PG (full) 1.5 mmHg RADHA(V,A) 2.0 cm\S\2 RADHA(V,D) 2.0 cm\S\2 LV V1 max PG 4.4 mmHg LV V1 max 104.5 cm/sec PA V2 max 101.4 cm/sec PA max PG 4.1 mmHg TR max jane 308.0 cm/sec
[2017-11-27] MEDS ORDERED: NURSING VERBAL MED ORDER ONE ×2 (11:30→15:00)
[2017-11-27] MEDS ORDERED: FENTANYL 50 MCG/HR TDSY TD SCH (12:00)
[2017-11-27] MEDS ORDERED: BUPIVACAINE 0.5 % 5 MG/1 ML PF 10ML VIAL ONE ×2 (12:13→17:31)
--- NOTE | 2017-11-27 12:31 | DIAGNOSTIC IMAGING REPORT ---
LOWER EXT NONJOINT WITHOUT HISTORY: 57 years-old Female right proximal femur fracture acute pathologic fracture of the right femur with metastatic lung cancer COMPARISON: Right femur radiographs of same day, PET CT 11/02/2017, right femur radiographs 04/25/2017 TECHNIQUE: Multiplanar multisequence MRI of the right femur were obtained without the use of IV contrast. FINDINGS: Large field of view automatic typewriter inspector localizer images demonstrate no gross abnormality. Marrow replacing metastatic lesion of the proximal femur intertrochanteric and subtrochanteric region redemonstrated measuring up to 3.5 x 2.9 x 7.7 cm in transverse, AP and craniocaudal dimensions, image 14 series 5 which demonstrates moderate bone marrow and periosteal edema. There is edema noted within the adjacent vastus intermedius musculature with ill-defined moderate soft tissue edema measuring up to 3.1 x 1.3 cm on image 21 of series 10. Evaluation for associated soft tissue mass is limited without the use of IV contrast. Pathologic fracture through the center to inferior margin of the metastatic lesion appears to demonstrate corticated margins suggesting subacute etiology. No acute displaced and of the fracture. No additional metastatic bone lesions are identified. No evidence of bursitis. Lima catheter noted within the bladder lumen. Mild subcutaneous edema lateral to the right hip. Mild right hip osteoarthritis. No large joint effusion. 5.7 cm cystic lesion is noted about the central pelvis. IMPRESSION: 1. Marrow replacing metastatic lesion of the proximal femur intertrochanteric and subtrochanteric region redemonstrated measuring up to 7.7 cm in length. Subacute appearing pathologic fracture through the central to inferior margin of the mass redemonstrated without displacement. 2. Moderate periosteal edema with edema in the adjacent vastus intermedius intermedius may be reactive or reflect soft tissue component of the metastatic lesion, not definitively seen without the use of IV contrast. 3. 5.7 cm cystic lesion of the central pelvis suggests ovarian etiology. This could be correlated with pelvic ultrasound if clinically indicated. The above report was generated using voice recognition software. It may contain grammatical, syntax or spelling errors. Electronically signed by: Sky Mar M.D. 11/27/2017 12:30 PM Dictated Date/Time: 11/27/2017 12:18 PM
[2017-11-27] MEDS: FENTANYL PATCH REMOVE & WASTE SCH ×2 (13:21→14:02)
[2017-11-27] MEDS ORDERED: FENTANYL 12 MCG/HR TDSY TD SCH (14:30)
[2017-11-27 14:56] VITALS: BP 113/70; PULSE 69; TEMP 36.8; O2SAT 99
[2017-11-27] MEDS ORDERED: ALBUMIN HUMAN 5% 12.5 GM/250 ML VIAL IV ONE (15:36)
[2017-11-27] MEDS ORDERED: FENTANYL CITRATE INJ 50 MCG/1 ML 2 ML VIAL ONE ×5 (15:40→20:28)
[2017-11-27] MEDS ORDERED: MIDAZOLAM HCL 1 MG/ML 2ML VIAL ONE (15:40)
[2017-11-27] MEDS ORDERED: EpHEDrine SULFATE INJ 50 MG/ML AMP IV PRN (15:45)
[2017-11-27] MEDS ORDERED: PHENYLEPHRINE 100MCG/ML 5ML SYR IV PRN (15:45)
[2017-11-27] MEDS ORDERED: ATROPINE SULFATE 0.1 MG/ML 5ML SYR IV PRN (15:45)
[2017-11-27] MEDS ORDERED: PROMETHAZINE HCL INJ 12.5 MG in SODIUM CHLORIDE 0.9% 50ML 50 ML IV PRN (15:45)
[2017-11-27] MEDS ORDERED: HYDROmorphone INJ 1 MG/ML SYR IV PRN ×2 (15:45→20:30)
[2017-11-27] MEDS ORDERED: FENTANYL CITRATE INJ 50 MCG/1 ML 2 ML VIAL IV PRN ×3 (15:45→20:30)
[2017-11-27] MEDS ORDERED: ACETAMINOPHEN 1000 MG/100 ML IV IV ONE (16:00)
--- NOTE | 2017-11-27 16:43 | History & Physical Bridge Note ---
H&P Re-Evaluation Bridge Note: I have examined the patient, reviewed the History & Physical and in the interval since the performance of the History & Physical I have noted the following changes of clinical significance: No changes noted
[2017-11-27] MEDS ORDERED: CEFAZOLIN SOD 1 GM VIAL ONE ×2 (17:05)
[2017-11-27] MEDS ORDERED: DEXAMETHASONE SOD INJ 4 MG/ML VIAL ONE ×2 (17:15)
[2017-11-27] MEDS ORDERED: LIDOCAINE HCL 2% 2 ML VIAL (20MG/ML) ONE (17:27)
[2017-11-27] MEDS ORDERED: SUCCINYLCHOLINE CHLORIDE 20 MG/ML 10 ML VIAL IV ONE (17:27)
[2017-11-27] MEDS ORDERED: PROPOFOL IV EMULSION 10 MG/ML 20 ML VIAL ONE (17:27)
[2017-11-27] MEDS ORDERED: HYDROmorphone INJ 2 MG/ML SYR/VIAL ONE ×2 (17:52→19:15)
[2017-11-27] MEDS ORDERED: EpHEDrine SULFATE INJ 50 MG/ML AMP ONE (18:31)
--- NOTE | 2017-11-27 18:50 | [facility] Post Operative Brief Note ---
Immediate Operative Summary Operative Date Nov 27, 2017. Pre-Operative Diagnosis Right pathologic proximal femur fracture; Lung CA Post-Operative Diagnosis Right pathologic proximal femur fracture; Lung CA Procedure(s) Performed 1. Open reduction internal fixation with Synthes Long trochanteric fixation intermedulary nail right femur fracture 2. Right proximal femoral intramedullary biopsy Surgeon Dr. Debra Ingram District Manager In Training Surgeon(s) Harper Keys PA-C Estimated Blood Loss 75 cc Findings Consistent with Post-Op Diagnosis Specimens A: Right femoral canal biopsy Drains None Anesthesia Type General (local) Complication(s) none Disposition Accompanied Pt To Recover: no Disposition: Recovery Room / PACU
[2017-11-27] MEDS ORDERED: HYDROmorphone INJ 0.5 MG/0.5 ML SYR IV PRN (19:30)
--- NOTE | 2017-11-27 20:33 | DIAGNOSTIC IMAGING REPORT ---
R HIP OR FILMS CLINICAL HISTORY: RIGHT FEMUR FX COMPARISON STUDY: Right femur 11/27/2017. FLUOROSCOPY TIME: 2 minutes and 47 seconds. 6 fluoroscopic spot images of the right femur. FINDINGS: Patient is status post internal fixation of a subtrochanteric of the right femur. The hardware is intact. The alignment is near-anatomic. IMPRESSION: Status post internal fixation of a right femoral subtrochanteric fracture. The alignment is near-anatomic. Electronically signed by: Deep Man M.D. 11/27/2017 8:32 PM Dictated Date/Time: 11/27/2017 8:30 PM
--- NOTE | 2017-11-27 20:52 | Anesthesiology Progress Note ---
Anesthesia Post Op Note Date & Time Nov 27, 2017 at 20:51 Vital Signs Pain Intensity: 9 Vital Signs Past 12 Hours Date Time Temp Pulse Resp B/P (MAP) Pulse Ox O2 Delivery O2 Flow Rate FiO2 11/27/17 20:15 90 18 142/85 99 Nasal Cannula 4 11/27/17 20:05 96 18 130/78 100 Nasal Cannula 4 11/27/17 19:55 91 18 142/80 100 Nasal Cannula 4 11/27/17 19:45 97 18 117/82 91 Nasal Cannula 4 11/27/17 19:35 99 18 160/100 100 Nasal Cannula 4 11/27/17 19:25 98 18 168/94 100 Oxymask 10 11/27/17 19:15 89 18 163/79 100 Oxymask 10 11/27/17 19:09 36.5 91 18 173/88 100 Oxymask 10 11/27/17 14:56 36.8 69 18 113/70 (84) 99 Notes Mental Status: alert / awake / arousable, participated in evaluation Pt Amnestic to Procedure: Yes Nausea / Vomiting: adequately controlled Pain: adequately controlled Airway Patency, RR, SpO2: stable & adequate BP & HR: stable & adequate Hydration State: stable & adequate Anesthetic Complications: no major complications apparent Pt awake, doing well. Pain better controlled. Per patient she is ready to go to her room. VSS.
--- NOTE | 2017-11-27 20:53 | DIAGNOSTIC IMAGING REPORT ---
R FEMUR 2 VIEWS ROUTINE CLINICAL HISTORY: POSTOP R HIP COMPARISON STUDY: Right femur 11/27/2017 FINDINGS: Status post internal fixation of a right femoral subtrochanteric pathologic fracture within an intramedullary alexa and interlocking femoral neck pin. The hardware is intact. The alignment is anatomic. Skin grace are in place. Right lateral hip subcutaneous gas consistent with postoperative change. IMPRESSION: Status post internal fixation of a right femoral subtrochanteric pathologic fracture. The hardware is intact. Electronically signed by: Deep Man M.D. 11/27/2017 8:51 PM Dictated Date/Time: 11/27/2017 8:50 PM
[2017-11-27 21:30] VITALS: BP 144/73; PULSE 88; TEMP 36.6; O2SAT 96
[2017-11-27] MEDS: LORAZEPAM 2 MG TAB PO PRN (21:53)
[2017-11-27 22:00] VITALS: BP 141/80; PULSE 91; TEMP 36.6; O2SAT 95
[2017-11-27] MEDS: DIGOXIN 0.25 MG TAB PO SCH (22:01)
--- NOTE | 2017-11-27 22:33 | OPERATIVE REPORT ---
DATE OF OPERATION: 11/27/2017 PREOPERATIVE DIAGNOSES: 1. Right proximal femoral pathologic fracture. 2. History of lung cancer. POSTOPERATIVE DIAGNOSES: 1. Right proximal femoral pathologic fracture. 2. History of lung cancer. PROCEDURE: 1. Open reduction internal fixation of right pathologic femur fracture with Synthes long trochanteric fixation, intramedullary nail. 2. Intramedullary biopsy, right proximal femur. SURGEON: Stefan Ingram DO REHAB NURSE: Harper Keys PA-C who was present for patient positioning, sterile prep and drape, management of retractors and instruments. He was present through the critical portions of the case including wound closure, application of sterile dressing and transport of the patient to recovery. ANESTHESIA: General LMA with local. SPECIMENS: Intramedullary biopsy, right femur. DRAINS: None. COMPLICATIONS: None. BLOOD LOSS: 75 mL PERTINENT HISTORY: This is a 57-year-old female with history of lung cancer who presented with a history consistent with pathologic fracture of the right femur without any evidence of fall. The patient presented to the [facility]. Radiographs were obtained noting a fracture through an area of lytic blastic bony abnormality. The patient had further study with MRI demonstrating marrow-replacing metastatic lesion of the proximal femoral intertrochanteric region and subtrochanteric region measuring 7.7 cm in length. The patient was likely noted to have metastatic bone lesion with pathologic fracture. The patient was then optimized for surgery and then cleared for surgery as indicated. All potential risks, benefits, complications, alternatives, rehab, potential for incomplete relief of symptoms, need for additional surgery, DVT, PE, , persistent pain, swelling, scarring, weakness, neurovascular injury, wound complications, hardware failure, nonunion, malunion were discussed with the patient. The patient decided to proceed with the procedure as indicated. DESCRIPTION OF PROCEDURE: The patient was transferred to the operative suite. The proper site was identified. The consent was reviewed, the patient was then administered sedation and spinal anesthetic. Once appropriate, the patient then transferred to the fracture table where the lower extremity was placed in fracture table traction and the nonoperative leg was placed in the well leg peralta. All bony prominences were properly padded and protected. The padded post was placed in the peroneal and the patient was positioned appropriately. Next the left leg was placed on traction and reduction of the fracture was performed under fluoroscopic control. Next the operative hip was then sterilely prepped and draped in the usual fashion. Next a 10-blade scalpel incision was used to make an incision proximal to the greater trochanter. The incision was deep in the subcutaneous tissue and fascia and the tip of the greater trochanter was then palpated followed by placement of a guide pin under fluoroscopic control driven into the greater trochanter down to the level of the less trochanter. This was confirmed in AP and lateral projections followed by placement of the proximal reamer over the cannulated guide pin. Next the reamer was then removed using the soft tissue protector, which was also removed. Reamings were obtained from the proximal femoral reamer and sent for specimen for pathological assessment. Sequential reaming was then performed over a long guide alexa until reached a 12.5 mm. Next the ball tip guide alexa was placed into the proximal femur under fluoroscopic control confirmed with AP and lateral fluoroscope projections. Next the trochanteric nail was then passed over the guide alexa into the femur, the guide alexa was removed and then under fluoroscopic control appropriate level of the femoral nail was then placed in AP projections. Next the targeting device was then fixed to the driving handle and 10-blade scalpel incision was made in the lateral aspect of the thigh. Next the tissue protector and cannulated guide system was then passed into the soft tissue until it was securely fixed against a lateral aspect of the femoral cortex. This was also confirmed under C-arm. Next the guide pin for the spiral blade was driven into the lateral aspect of the femur confirming this with AP lateral projections until the guide pin was in the center of the femoral neck and head approximately 5 mm from the subcortical bone of the femur. Next the spiral blade was then measured and then the lateral cortex was then drilled with the cortex reamer followed by use of the triple reamer with the depth stop set at appropriate depth. In this case an 85 mm spiral blade was then inserted over the cannulated guide alexa under fluoroscopic control. This was seated appropriately then traction was reduced from the limb and the fracture was then gently compressed and then locked proximally with the flexible screwdriver. Next the spiral blade was then disengaged from its insertion handle, insertion handle was then removed and the guide pin was removed from the femoral neck and head. Next free hand distal locking was performed with fluoroscopic assistance. First a 10-blade scalpel incision was made in the lateral aspect of the distal thigh, drill was then tamped gently to the lateral aspect of the femoral cortex then the locking screw hole was then drilled, measured and then an appropriate length screw was placed to lock the distal aspect of the nail. The insertion arm was then removed from the nail and final x-rays were obtained in AP and lateral projections. All incisions were then copiously irrigated with sterile normal saline. The proximal gluteus fascia was closed using interrupted #1 Vicryl, the dermis was closed using buried interrupted 2-0 Vicryl sutures in all three incisions and the skin was then closed using skin grace. A sterile compressive dressing consisting of Xeroform gauze, sterile 4 x 4's and Tegaderm was applied. The patient was then awakened and taken to recovery in stable condition. I attest to the content of the Intraoperative Record and any orders documented therein. Any exceptions are noted below. NAN
[2017-11-27 23:00] VITALS: BP 145/75; PULSE 93; TEMP 36.6; O2SAT 95
[2017-11-28] VITALS (10 sets, daily range): BP systolic 98–142; BP diastolic 52–81; PULSE 73–102; TEMP 36.6–37.5; O2SAT 94–98; Ht 154.9 cm; Wt 97.4 kg
[2017-11-28] MEDS: OXYCODONE HCL IR 5 MG TAB (IMMEDIATE RELEASE) PO PRN ×3 (01:10→09:02)
[2017-11-28 08:04] LABS: HEMATOCRIT 26.3 % (37-47); HEMOGLOBIN 7.6 g/dL (12.0-16.0); MEAN CELL VOLUME 79.5 fL (80-100); MEAN CORPUSCULAR HGB CONC 28.9 g/dl (32-36); MEAN PLATELET VOLUME 10.3 fL (7.4-10.4); PLATELET COUNT 325 K/uL (130-400); RED CELL DISTRIBUTION WIDTH CV 16.8 % (11.5-14.5); RED CELL DISTRIBUTION WIDTH SD 49.3 fL (36.4-46.3); WHITE BLOOD COUNT 5.74 K/uL (4.8-10.8)
[2017-11-28] MEDS: CHECK FENTANYL PATCH PLACEMENT SCH ×4 (08:10→23:15)
[2017-11-28] MEDS: LORAZEPAM 2 MG TAB PO PRN ×2 (08:19→17:19)
[2017-11-28] MEDS: FLUTICASONE PROPIONATE NA SPR 16 GM BTL NAE SCH (08:19)
[2017-11-28] MEDS: VITAMIN B COMPLEX TAB PO SCH (08:20)
[2017-11-28] MEDS: IPRATROPIUM BROMIDE/ALBUTEROL respimat INH INH SCH ×4 (08:20→20:34)
[2017-11-28] MEDS: ARMOUR THYROID 30 MG TAB PO SCH (08:20)
[2017-11-28] MEDS: FLECAINIDE ACETATE 100 MG TAB PO SCH ×2 (08:21→20:36)
[2017-11-28] MEDS: ASCORBIC ACID 500 MG TAB PO SCH ×2 (08:22→20:36)
[2017-11-28] MEDS: CeleBREX 100 MG CAP PO SCH (08:22)
[2017-11-28] MEDS: GABAPENTIN 600 MG TAB PO SCH ×3 (08:22→20:35)
[2017-11-28] MEDS: VENLAFAXINE HCL XR 150 MG CAPXR PO SCH (08:22)
[2017-11-28] MEDS: LACTOBACILLUS ACIDOPHILUS (FLORANEX) TAB PO SCH (08:23)
[2017-11-28 08:30] LABS: IG# 0.02 K/uL (0.00-0.02); LYMPH % 12.9 %; LYMPH ABS # 0.74 K/uL (1.2-3.4); MONO ABS # 0.69 K/uL (0.11-0.59); NEUT % 74.8 %; NEUT ABS # 4.29 K/uL (1.4-6.5)
[2017-11-28 08:37] LABS: CALCIUM 8.4 mg/dl (8.5-10.1); CREATININE 0.64 mg/dl (0.60-1.20); POTASSIUM 4.3 mmol/L (3.5-5.1)
--- NOTE | 2017-11-28 09:18 | HEME/ONC PROGRESS NOTE ---
DATE: 11/28/2017 DIAGNOSES: 1. Pathologic fracture, right proximal femur, status post intramedullary nail. 2. Stage IV adenocarcinoma of the lung. 3. History of PE. 4. Chronic hypoxic respiratory failure. SUBJECTIVE: Ashly is a pleasant 57-year-old female patient, currently under my care with metastatic non-small cell lung cancer. Ashly was admitted over the weekend because of progressive right lower extremity pain and dysambulation. RADIOGRAPHS: There was a radiographic evidence of pathologic fracture and appropriately orthopedics was consulted and took the patient to surgery installing an intramedullary nail. She is still having some mild postoperative discomfort, but overall is in good spirits. PHYSICAL EXAMINATION: GENERAL: She is in no acute distress. VITAL SIGNS: Temperature 37.1, pulse 83, respiratory rate 18, blood pressure 98/52. SKIN: Without rash or lesion. HEENT: Oral mucosa without erythema or ulceration. HEART: Regular rate and rhythm. LUNGS: Clear to auscultation bilaterally. ABDOMEN: Soft, nontender, nondistended. EXTREMITIES: Pneumatic devices in place. No clubbing, cyanosis or edema otherwise. NEUROLOGIC: Grossly intact. LABORATORY DATA: WBC count 5740; hemoglobin 7.6; platelet count 325,000. Sodium 141, potassium 4.3, chloride 102, carbon dioxide 34, BUN 14, creatinine 0.64. IMPRESSION: 1. Postoperative day #1 installment of a right femoral nail for pathologic fracture. 2. Metastatic non-small cell lung cancer. PLAN: I visited with Ashly at bedside today. Unfortunately, she suffered a pathologic fracture as anticipated. I had seen Ashly in the office couple of weeks ago and she had been complaining of leg pain at that time. I was aware of the large proximal femoral lesion and the lesion in question had been radiated in the past. Nonetheless, I would like radiation oncology to take a look at her again to make sure this fracture is within the previously treated field. If this is not the case, then certainly spot radiation to that area may assist in healing. I have no further input regarding her medical management and I will continue to see Ashly periodically throughout her hospital stay. I will also ensure that she has appropriate outpatient followup upon discharge. Thank you again for assisting me in the care of this very pleasant lady. NAN
[2017-11-28] MEDS ORDERED: HYDROmorphone INJ 0.5 MG/0.5 ML SYR ONE (12:32)
--- NOTE | 2017-11-28 12:48 | Palliative Care Consultation ---
Consultation Date of Consultation: Nov 28, 2017. Requesting Physician: Dr. Mcgrath Attending Physician: Dr. 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 She presented to the ED with intractable right femur pain s/p helping her own mother to the bathroom and she was discovered to sustain a right femoral compression fracture for which a nail was placed. This patient also has an Eloesser flap s/p chest tube that was placed in 2014 for which her fully manages at home and is being managed here by nursing and the [facility]OC[facility]'s. Palliative Care was consulted for symptom/pain management. The patient has been clear on multiple occasions, including our consult that she intends to remain on the treatment track until this cancer is 'cured'. She is a patient of Dr. Townsend and currently receiving Tagrisso as she also has the + EGFR mutation gene which makes her more prone to this cancer. Currently the patient receives the following medications for symptom management: Roxicodone IR Ativan 2mg po BID Gabapentin 600 mg po TID Celebrex 100 mg po BID Effexor 150 mg daily Currently, the patient resides at home with her of 28 years, Diego, and her multiple dogs. She states that her can no longer drive and he depends on her for everything. The patient became tearful in talking about her - she stated she can not leave him. Based on her statements of continuing treatment and not being ready for a hospice transition, we will continue to follow closely from a pain management standpoint and will continue to build rapport on an outpatient basis. Upon assessment, the patient is sitting up in her bed, on 2LNC, without acute SOB. The patient has an Eloesser flap on her left lateral chest s/p chest tube which was inserted in 2014. Dressing dry and intact. Patient with two small incisions covered from the femoral nail placement. Patient is complaining of 5/ 10 pain in her right and left leg. We thank you kindly for involving us with this patient's care. We will continue to follow her throughout her hospitalization and on an outpatient basis. Past Medical/Surgical History Medical History: AF HTN Hypothyroidism Acute PE Surgical History: radiation to lung and cerebral nodules Chest tube placement Social History Smoking Status: Former Smoker History of Alcohol Use: No Drug Use: none Marital Status: Occupation Status: retired Review of Systems General: Patient states she has 5/10 pain in her right hip and leg HEENT: Patient denies SWENSON, dizziness, visual changes CV: patient denies palpitations, CP, swelling Resp: Patient states her breathing is labored with increased movement GI: Pt denies abdominal pain, N/V/D : Pt denies dysuria, but states she has a hard time getting up fast enough to go to the bathroom Skin: Patient denies any new rashes Psych: Patient states she feels optimistic and eager to continue with treatment Allergies Coded Allergies: No Known Allergies (Unverified , 11/18/14) Medications Current Inpatient Medications Medications (Trade) Dose Ordered Sig/Bhavesh Route Start Time Stop Time Status Last Admin Dose Admin Enoxaparin Sodium (Lovenox Inj) 40 mg Q24H SQ 11/27/17 09:00 12/27/17 08:59 Future Hold Acetaminophen (Tylenol Tab) 650 mg Q4H PRN PO 11/27/17 02:45 12/27/17 02:44 Ondansetron HCl (Zofran Inj) 4 mg Q6H PRN IV 11/27/17 02:45 12/27/17 02:44 Celecoxib (CeleBREX CAP) 100 mg BID PO 11/27/17 08:00 12/27/17 08:59 11/28/17 08:22 100 MG Digoxin (Lanoxin Tab) 0.25 mg DAILY@1600 PO 11/27/17 16:00 12/27/17 15:59 11/27/17 22:01 0.25 MG Diphenhydramine HCl (Benadryl Cap) 25 mg HS PRN PO 11/27/17 02:45 12/27/17 02:44 11/27/17 23:48 25 MG Fentanyl (Duragesic Patch) 50 mcg Q72H TD 11/27/17 12:00 12/11/17 11:59 11/27/17 13:20 50 MCG Fluticasone Propionate (Flonase Nasal [place]) 2 sprays DAILY DON 11/27/17 08:00 12/27/17 08:59 Gabapentin (Neurontin Tab) 600 mg TID PO 11/27/17 08:00 12/27/17 08:59 11/28/17 08:22 600 MG Albuterol/ Ipratropium (Combivent Respimat Inh) 1 puffs QID INH 11/27/17 08:00 12/27/17 08:59 11/28/17 08:20 1 PUFFS Lorazepam (Ativan Tab) 2 mg BID PRN PO 11/27/17 02:45 12/27/17 02:44 11/28/17 08:19 2 MG Venlafaxine HCl (effeXOR EXTENDED REL CAP) 150 mg DAILY PO 11/27/17 08:00 12/27/17 08:59 11/28/17 08:22 150 MG Vitamin B Complex (Vitamin B Complex) 1 tab DAILY PO 11/27/17 08:00 12/27/17 08:59 11/28/17 08:20 1 TAB Ascorbic Acid (Vitamin C Tab) 1,000 mg BID PO 11/27/17 08:00 12/27/17 08:59 11/28/17 08:22 1,000 MG Flecainide Acetate (Tambocor Tab) 150 mg Q12 PO 11/27/17 09:00 12/27/17 08:59 11/28/17 08:21 150 MG Miscellaneous Information (Order Awaiting Action) 1 ea QS N/A 11/27/17 08:00 12/27/17 07:59 11/28/17 08:12 1 EA Oxycodone HCl (Roxicodone Immediate Rel Tab) 10 mg Q3H PRN PO 11/27/17 02:45 12/27/17 02:44 11/28/17 09:02 10 MG Lactobacillus Acidophilus (Floranex Tab) 4 tab DAILY PO 11/27/17 08:00 12/27/17 08:59 11/28/17 08:23 4 TAB Thyroid ([place] Thyroid Tab) 60 mg DAILY PO 11/27/17 08:00 12/27/17 08:59 11/28/17 08:20 60 MG Miscellaneous Information (Order Awaiting Action) 1 ea QS N/A 11/27/17 08:00 12/27/17 07:59 11/28/17 08:12 1 EA Lidocaine HCl (Xylocaine Jelly 2%) 2 ml QS PRN EXT 11/27/17 02:45 12/27/17 02:44 Miscellaneous (Iv Fluids Completed) 1 ea PRN PRN N/A 11/27/17 06:30 11/27/18 06:29 Miscellaneous (Fentanyl Patch Remove & Waste) 1 ea Q72H N/A 11/27/17 11:59 12/27/17 11:58 11/27/17 14:02 1 EA Miscellaneous Information (Check Fentanyl Patch Placement) 1 ea QS N/A 11/27/17 16:00 12/27/17 15:59 11/28/17 08:10 1 EA Fentanyl (Duragesic Patch) 12 mcg Q3D@1430 TD 11/27/17 14:30 12/11/17 14:29 11/27/17 14:42 12 MCG Miscellaneous (Fentanyl Patch Remove & Waste) 1 ea Q3D@1429 N/A 11/30/17 14:29 12/30/17 14:28 Miscellaneous Information (Check Fentanyl Patch Placement) 1 ea QS N/A 11/27/17 16:00 12/27/17 15:59 11/28/17 08:11 1 EA Physical Exam Date Time Temp Pulse Resp B/P (MAP) Pulse Ox O2 Delivery O2 Flow Rate FiO2 11/28/17 09:07 73 126/73 (90) 11/28/17 08:00 Nasal Cannula 2.0 11/28/17 07:46 37.1 83 18 98/52 (67) 96 Nasal Cannula 2.0 11/28/17 03:40 36.7 81 18 128/77 (94) 95 Nasal Cannula 2.0 11/28/17 01:10 36.6 96 20 142/81 (101) 94 Nasal Cannula 2.0 11/28/17 00:00 36.7 102 20 114/67 (83) 94 Room Air 11/27/17 23:59 Nasal Cannula 2.0 11/27/17 23:00 36.6 93 20 145/75 (98) 95 Room Air 11/27/17 22:01 88 11/27/17 22:00 36.6 91 18 141/80 (100) 95 Room Air 2.0 11/27/17 21:30 36.6 88 18 144/73 (96) 96 Nasal Cannula 2.0 11/27/17 21:30 96 Nasal Cannula 2.0 11/27/17 21:30 96 Nasal Cannula 2.0 11/27/17 21:05 36.5 82 18 135/71 99 Nasal Cannula 4 11/27/17 20:55 81 18 151/56 99 Nasal Cannula 4 11/27/17 20:45 81 18 150/70 99 Nasal Cannula 4 11/27/17 20:35 36.5 84 18 146/64 99 Nasal Cannula 4 11/27/17 20:25 90 18 149/63 99 Nasal Cannula 4 11/27/17 20:15 90 18 142/85 99 Nasal Cannula 4 11/27/17 20:05 96 18 130/78 100 Nasal Cannula 4 11/27/17 19:55 91 18 142/80 100 Nasal Cannula 4 11/27/17 19:45 97 18 117/82 91 Nasal Cannula 4 11/27/17 19:35 99 18 160/100 100 Nasal Cannula 4 11/27/17 19:25 98 18 168/94 100 Oxymask 10 11/27/17 19:15 89 18 163/79 100 Oxymask 10 11/27/17 19:09 36.5 91 18 173/88 100 Oxymask 10 11/27/17 14:56 36.8 69 18 113/70 (84) 99 General Appearance: no apparent distress (sitting up in bed without distress) Neck: supple, no adenopathy Respiratory: no respiratory distress, no accessory muscle use, + decreased breath sounds Cardiovascular: regular rate, rhythm, no edema (tracel pedal), no murmur Abdomen: normal bowel sounds, non tender, soft Musculoskeletal: pertinent finding (B/L UE 5/5; RLE 4/5 LLE 5/5) Neurologic/Psychiatric: oriented x 3 Skin: normal color, warm/dry, no rash Laboratory Results Last 24 Hours Test 11/28/17 07:21 White Blood Count 5.74 K/uL Red Blood Count 3.31 M/uL Hemoglobin 7.6 g/dL Hematocrit 26.3 % Mean Corpuscular Volume 79.5 fL Mean Corpuscular Hemoglobin 23.0 pg Mean Corpuscular Hemoglobin Concent 28.9 g/dl Platelet Count 325 K/uL Mean Platelet Volume 10.3 fL Neutrophils (%) (Auto) 74.8 % Lymphocytes (%) (Auto) 12.9 % Monocytes (%) (Auto) 12.0 % Eosinophils (%) (Auto) 0.0 % Basophils (%) (Auto) 0.0 % Neutrophils # (Auto) 4.29 K/uL Lymphocytes # (Auto) 0.74 K/uL Monocytes # (Auto) 0.69 K/uL Eosinophils # (Auto) 0.00 K/uL Basophils # (Auto) 0.00 K/uL RDW Standard Deviation 49.3 fL RDW Coefficient of Variation 16.8 % Immature Granulocyte % (Auto) 0.3 % Immature Granulocyte # (Auto) 0.02 K/uL Hypochromasia PRESENT Sodium Level 141 mmol/L Potassium Level 4.3 mmol/L Chloride Level 102 mmol/L Carbon Dioxide Level 34 mmol/L Anion Gap 5.0 mmol/L Blood Urea Nitrogen 14 mg/dl Creatinine 0.64 mg/dl Est Creatinine Clear Calc Drug Dose 107.6 ml/min Estimated GFR () 116.4 Estimated GFR (Non- 100.5 BUN/Creatinine Ratio 21.7 Random Glucose 117 mg/dl Calcium Level 8.4 mg/dl Assessment & Plan Palliative Performance Scale: 60 % Palliative Care Encounter Metastatic Adenocarcinoma Intractable bone pain PALLIATIVE CARE RECOMMENDATIONS: Advanced Directive: Patient would like to remain Full Code at this time. Patient feeling very eager for continued treatment at this time. Dr. Virk will follow closely on an outpatient basis as well. Metastatic Adenocarcinoma: Patient currently receiving treatment with Dr. Townsend ([facility]). Due to brain mets, recommend Decadron 2 mg po daily. Patient has taken Decadron in the past and does not have any behavioral changes with it. The patient expressed interest in medical marijuana, which she stated she discussed with her Oncologist, Dr. Townsend. I expressed that I would have Valencia Gutierrez follow up with her regarding the process and to help facilitate an outpatient appointment for her upon discharge with Dr. Yury Powell. Bone pain: Patient does not appear to have consistent pain management on an outpatient basis, which Palliative Care can hopefully bridge the gap for. The patient is complaining of 5/10 right leg pain and generalized pain. To decrease the amount of breakthrough pain she is receiving, recommend increasing her Fentanyl patch to 75 mcg TD Q3 days, along with increasing her Celebrex to 400 mg po BID, and adding in [place] 10 mg po Q4. All of the above were discussed with Dr. Mcgrath, the attending physician. Discharge planning: Pt will be downgraded from tele status as she appears stable, as discussed with Dr. Mcgrath. Presumably, patient will be discharged home, with home health, and outpatient Palliative Care appointment. Counseling and Coordination Total time spent 80 minutes with > 50% of that time spent reviewing the chart, assessing the patient, discussing symptom management and coordinating care with patient and interdisciplinary team. Time in 1055/Time out 1145.
[2017-11-28] MEDS ORDERED: FENTANYL 25 MCG/HR TDSY TD SCH (13:00)
--- NOTE | 2017-11-28 13:28 | Orthopedic Progress Note ---
Orthopedic Progress Note Date of Service Nov 28, 2017. Subjective Post OP Day: 1 Reports: feeling well, Denies: chest pain, SOB, nausea / vomiting, light headedness, calf pain Additional Notes: Having some pain off and on with the hip but currently comfortable. Objective calves soft nontender, N/V intact, dressing C/D/I, A&O x3, toes mobile Date Time Temp Pulse Resp B/P (MAP) Pulse Ox O2 Delivery O2 Flow Rate FiO2 11/28/17 12:01 37.5 82 18 100/55 (70) 94 Nasal Cannula 2.0 11/28/17 09:07 73 126/73 (90) 11/28/17 08:00 Nasal Cannula 2.0 11/28/17 07:46 37.1 83 18 98/52 (67) 96 Nasal Cannula 2.0 11/28/17 03:40 36.7 81 18 128/77 (94) 95 Nasal Cannula 2.0 11/28/17 01:10 36.6 96 20 142/81 (101) 94 Nasal Cannula 2.0 11/28/17 00:00 36.7 102 20 114/67 (83) 94 Room Air 11/27/17 23:59 Nasal Cannula 2.0 11/27/17 23:00 36.6 93 20 145/75 (98) 95 Room Air 11/27/17 22:01 88 11/27/17 22:00 36.6 91 18 141/80 (100) 95 Room Air 2.0 11/27/17 21:30 36.6 88 18 144/73 (96) 96 Nasal Cannula 2.0 11/27/17 21:30 96 Nasal Cannula 2.0 11/27/17 21:30 96 Nasal Cannula 2.0 11/27/17 21:05 36.5 82 18 135/71 99 Nasal Cannula 4 11/27/17 20:55 81 18 151/56 99 Nasal Cannula 4 11/27/17 20:45 81 18 150/70 99 Nasal Cannula 4 11/27/17 20:35 36.5 84 18 146/64 99 Nasal Cannula 4 11/27/17 20:25 90 18 149/63 99 Nasal Cannula 4 11/27/17 20:15 90 18 142/85 99 Nasal Cannula 4 11/27/17 20:05 96 18 130/78 100 Nasal Cannula 4 11/27/17 19:55 91 18 142/80 100 Nasal Cannula 4 11/27/17 19:45 97 18 117/82 91 Nasal Cannula 4 11/27/17 19:35 99 18 160/100 100 Nasal Cannula 4 11/27/17 19:25 98 18 168/94 100 Oxymask 10 11/27/17 19:15 89 18 163/79 100 Oxymask 10 11/27/17 19:09 36.5 91 18 173/88 100 Oxymask 10 11/27/17 14:56 36.8 69 18 113/70 (84) 99 Laboratory Results 24 Hours: Test 11/28/17 07:21 White Blood Count 5.74 K/uL Red Blood Count 3.31 M/uL Hemoglobin 7.6 g/dL Hematocrit 26.3 % Mean Corpuscular Volume 79.5 fL Mean Corpuscular Hemoglobin 23.0 pg Mean Corpuscular Hemoglobin Concent 28.9 g/dl Platelet Count 325 K/uL Mean Platelet Volume 10.3 fL Neutrophils (%) (Auto) 74.8 % Lymphocytes (%) (Auto) 12.9 % Monocytes (%) (Auto) 12.0 % Eosinophils (%) (Auto) 0.0 % Basophils (%) (Auto) 0.0 % Neutrophils # (Auto) 4.29 K/uL Lymphocytes # (Auto) 0.74 K/uL Monocytes # (Auto) 0.69 K/uL Eosinophils # (Auto) 0.00 K/uL Basophils # (Auto) 0.00 K/uL Assessment & Plan Assessment: POD 1 s/p Right TFN Plan: PT/OT pain management radiation oncology to see per Dr Townsend. Inhouse Planning Pain Management: Conesus, Dilaudid, other (Fentanyl) DVT Prophylaxis: TEDs, SCDs
[2017-11-28] MEDS: HYDROCODONE/ACETAMI 10/325 TAB PO PRN ×3 (13:30→21:42)
[2017-11-28] MEDS ORDERED: CHECK FENTANYL PATCH PLACEMENT SCH ×2 (13:43→16:00)
[2017-11-28] MEDS ORDERED: FENTANYL PATCH REMOVE & WASTE ONE ×2 (13:45→14:15)
[2017-11-28 14:09] LABS: HEMATOCRIT 26.2 % (37-47); HEMOGLOBIN 7.6 g/dL (12.0-16.0); MEAN CELL VOLUME 79.9 fL (80-100); MEAN CORPUSCULAR HEMOGLOBIN 23.2 pg (25-34); MEAN PLATELET VOLUME 9.3 fL (7.4-10.4); PLATELET COUNT 271 K/uL (130-400); RED CELL DISTRIBUTION WIDTH CV 16.7 % (11.5-14.5); RED CELL DISTRIBUTION WIDTH SD 49.1 fL (36.4-46.3); WHITE BLOOD COUNT 5.85 K/uL (4.8-10.8)
[2017-11-28] MEDS: FENTANYL 75 MCG/HR TDSY TD SCH (14:34)
[2017-11-28 14:38] LABS: BASO % 0.2 %; BASO ABS # 0.01 K/uL (0-0.2); EOS % 0.9 %; EOS ABS # 0.05 K/uL (0-0.5); IG# 0.01 K/uL (0.00-0.02); LYMPH % 19.1 %; LYMPH ABS # 1.12 K/uL (1.2-3.4); MONO % 10.8 %; MONO ABS # 0.63 K/uL (0.11-0.59); NEUT % 68.8 %; NEUT ABS # 4.03 K/uL (1.4-6.5)
[2017-11-28] MEDS: HYDROmorphone INJ 0.5 MG/0.5 ML SYR IV PRN ×3 (15:35→23:32)
[2017-11-28] MEDS: DIGOXIN 0.25 MG TAB PO SCH (15:37)
[2017-11-28] MEDS ORDERED: SENNA 8.6 MG TAB PO ONE (17:32)
[2017-11-28] MEDS ORDERED: ENOXAPARIN 40 MG/0.4 ML SYR SQ ONE (20:00)
[2017-11-28] MEDS: CeleBREX 200 MG CAP PO SCH (21:58)
--- NOTE | 2017-11-28 23:50 | Progress Note ---
Subjective Date of Service: Nov 28, 2017. Subjective Pt evaluation today including: conversation w/ patient, physical exam, chart review, lab review, conversation w/ testing consultant (orthopedics, palliative care, heme/onc), review of inpatient medication list Pain: right leg - mod/severe PO Intake: eating fine today Voiding: seals catheter in place tele stable overnight; NSR pt's greatest complaint is that of RLE pain she reports using oxycodone q3h at home, hydrocodone q4h at home, as well as her fentanyl patch she has not yet passed flatus, but denies nausea/emesis/abd pain asks for senna to be restarted Problem List Medical Problems: (1) Anasarca Status: Acute (2) Cellulitis of left lower extremity Status: Acute (3) Hemoptysis Status: Acute (4) Intractable pain Status: Acute (5) Metastatic primary lung cancer Status: Acute Review of Systems Constitutional: No fever Respiratory: No cough, No shortness of breath Cardiac: No chest pain Abdomen: No pain Objective Vital Signs Date Time Temp Pulse Resp B/P (MAP) Pulse Ox O2 Delivery O2 Flow Rate FiO2 11/28/17 16:45 Nasal Cannula 2.0 11/28/17 16:45 37.3 80 18 118/69 (85) 98 Nasal Cannula 2.0 11/28/17 16:24 37.0 80 18 94 2.0 11/28/17 15:37 80 11/28/17 15:22 37.0 83 18 128/66 (86) 94 Nasal Cannula 2.0 11/28/17 12:01 37.5 82 18 100/55 (70) 94 Nasal Cannula 2.0 11/28/17 09:07 73 126/73 (90) 11/28/17 08:00 Nasal Cannula 2.0 11/28/17 07:46 37.1 83 18 98/52 (67) 96 Nasal Cannula 2.0 11/28/17 03:40 36.7 81 18 128/77 (94) 95 Nasal Cannula 2.0 11/28/17 01:10 36.6 96 20 142/81 (101) 94 Nasal Cannula 2.0 11/28/17 00:00 36.7 102 20 114/67 (83) 94 Room Air 11/27/17 23:59 Nasal Cannula 2.0 11/27/17 23:00 36.6 93 20 145/75 (98) 95 Room Air 11/27/17 22:01 88 11/27/17 22:00 36.6 91 18 141/80 (100) 95 Room Air 2.0 11/27/17 21:30 36.6 88 18 144/73 (96) 96 Nasal Cannula 2.0 11/27/17 21:30 96 Nasal Cannula 2.0 11/27/17 21:30 96 Nasal Cannula 2.0 Physical Exam General Appearance: no apparent distress, + obese ENT: pharynx normal Neck: no JVD Respiratory/Chest: lungs clear, no respiratory distress, no accessory muscle use, + pertinent finding (dressing on upper back, posterior, left side) Cardiovascular: regular rate, rhythm, no gallop, + systolic murmur (2/6 BETI RUSB/LUSB) Abdomen: normal bowel sounds, non tender, soft, no organomegaly Extremities: + pedal edema (<1+ b/l ) Neurologic/Psychiatric: alert, oriented x 3 Skin: + pertinent finding (dressings intact, right lateral proximal thigh) Laboratory Results Last 24 Hours Test 11/28/17 07:21 11/28/17 14:00 White Blood Count 5.74 K/uL 5.85 K/uL Red Blood Count 3.31 M/uL 3.28 M/uL Hemoglobin 7.6 g/dL 7.6 g/dL Hematocrit 26.3 % 26.2 % Mean Corpuscular Volume 79.5 fL 79.9 fL Mean Corpuscular Hemoglobin 23.0 pg 23.2 pg Mean Corpuscular Hemoglobin Concent 28.9 g/dl 29.0 g/dl Platelet Count 325 K/uL 271 K/uL Mean Platelet Volume 10.3 fL 9.3 fL Neutrophils (%) (Auto) 74.8 % 68.8 % Lymphocytes (%) (Auto) 12.9 % 19.1 % Monocytes (%) (Auto) 12.0 % 10.8 % Eosinophils (%) (Auto) 0.0 % 0.9 % Basophils (%) (Auto) 0.0 % 0.2 % Neutrophils # (Auto) 4.29 K/uL 4.03 K/uL Lymphocytes # (Auto) 0.74 K/uL 1.12 K/uL Monocytes # (Auto) 0.69 K/uL 0.63 K/uL Eosinophils # (Auto) 0.00 K/uL 0.05 K/uL Basophils # (Auto) 0.00 K/uL 0.01 K/uL RDW Standard Deviation 49.3 fL 49.1 fL RDW Coefficient of Variation 16.8 % 16.7 % Immature Granulocyte % (Auto) 0.3 % 0.2 % Immature Granulocyte # (Auto) 0.02 K/uL 0.01 K/uL Hypochromasia PRESENT PRESENT Sodium Level 141 mmol/L Potassium Level 4.3 mmol/L Chloride Level 102 mmol/L Carbon Dioxide Level 34 mmol/L Anion Gap 5.0 mmol/L Blood Urea Nitrogen 14 mg/dl Creatinine 0.64 mg/dl Est Creatinine Clear Calc Drug Dose 107.6 ml/min Estimated GFR () 116.4 Estimated GFR (Non- 100.5 BUN/Creatinine Ratio 21.7 Random Glucose 117 mg/dl Calcium Level 8.4 mg/dl Giant Platelets 1+ Anisocytosis PRESENT Target Cells 1+ Assessment and Plan 57yo female - 1. pathological right proximal femur fracture, s/p ORIF by Dr. Ingram, POD #1 - appreciate ortho assistance. DVT proph - spoke with ortho & heme/onc - at this time will use lovenox 40mg daily. PT, OT. Pain control. Dr. Townsend suggesting rad onc consult to see if spot radiation is needed. 2. stage 4 adenocarcinoma of the lung - s/p left lung resection 4 years ago, ongoing oral chemo. Appreciate heme/onc consultation. 3. h/o PE - records indicate PEs back in 2013. She is no longer on anticoagulation. She has an IVC filter in place. Lovenox for DVT proph post-op for at least 1 month. 4. anemia - likely 2nd to cancer. However, b12, folate, and iron levels have been LOW in the past. Will recheck iron studies, b12, folate in am. Mild acute blood loss anemia 2nd to #1 - no transfusion today; repeat cbc in am ; if Hb is 7 or less then Tx 2 units PRBCs. 5. chronic hypoxic respiratory failure on home o2 - stable. 6. murmur - echo w/o significant valvular disease. This is likely a flow murmur/outflow tract murmur due to severe anemia. 7. chronic pain syndrome - cont fentanyl patch but increase to 75mcg q3d. Change oxycodone to norco 10's prn. Dilaudid 0.5mg IV q3h prn. Agree w/ increase in celebrex to 200 BID Agree with low-dose decadron - this may help with bone pain 8. h/o a. fib - remains in NSR on telemetry. No PAF overnight. Cont fleicanide. 9. DVT proph - lovenox 40mg daily. 10. FEN - diet as tolerated, lytes stable. 11. HTN - controlled. 12. hypothyroidism - TSH mildly high, FT4 borderline low. Consider titration of thyroid meds. 13. constipation/bowel regimen - miralax, senna. Watch for signs/symptoms of ileus. ok to d/c tele and transfer to med/surg Continued [facility] stay due to: inadequate oral pain control, voiding difficulties , ambulation difficulties, multiple IV medications needed Discharge planning: uncertain
[2017-11-29] MEDS: HYDROmorphone INJ 0.5 MG/0.5 ML SYR IV PRN ×6 (03:31→21:35)
[2017-11-29] MEDS: HYDROCODONE/ACETAMI 10/325 TAB PO PRN ×5 (03:31→22:29)
[2017-11-29 06:14] LABS: HEMATOCRIT 26.8 % (37-47); HEMOGLOBIN 7.7 g/dL (12.0-16.0); MEAN CELL VOLUME 80.2 fL (80-100); MEAN CORPUSCULAR HEMOGLOBIN 23.1 pg (25-34); MEAN CORPUSCULAR HGB CONC 28.7 g/dl (32-36); MEAN PLATELET VOLUME 10.1 fL (7.4-10.4); PLATELET COUNT 257 K/uL (130-400); RED CELL DISTRIBUTION WIDTH SD 49.8 fL (36.4-46.3); WHITE BLOOD COUNT 4.94 K/uL (4.8-10.8)
[2017-11-29 06:49] LABS: CALCIUM 8.2 mg/dl (8.5-10.1); CREATININE 0.6 mg/dl (0.60-1.20); POTASSIUM 3.9 mmol/L (3.5-5.1)
[2017-11-29] MEDS: CHECK FENTANYL PATCH PLACEMENT SCH ×3 (07:42→23:27)
[2017-11-29] MEDS: ARMOUR THYROID 30 MG TAB PO SCH (07:44)
[2017-11-29 08:00] VITALS: BP 125/75; PULSE 86; TEMP 37; O2SAT 97
[2017-11-29 08:26] VITALS: O2SAT 97
[2017-11-29] MEDS: FLUTICASONE PROPIONATE NA SPR 16 GM BTL NAE SCH (09:00)
[2017-11-29] MEDS ORDERED: POLYETHYLENE (MIRALAX) 17 GM PACK PO ONE (09:04)
--- NOTE | 2017-11-29 09:09 | Progress Note ---
Subjective Date of Service: Nov 29, 2017. Subjective Pt evaluation today including: conversation w/ patient, physical exam, chart review, lab review, conversation w/ wealth management consultant (rad onc, ortho) Pain: right hip - states "dilaudid isn't helping" PO Intake: normal Voiding: seals catheter in place +flatus, no stool yet confirms she takes hydrocodone 20mg every 4 hours at home and oxycodone 30mg every 3 hours at home (along with fentanyl) no dyspnea no cp no abd pain ambulated a little yesterday and sat in chair for 4 hours ok with d/c of seals Problem List Medical Problems: (1) Anasarca Status: Acute (2) Cellulitis of left lower extremity Status: Acute (3) Hemoptysis Status: Acute (4) Intractable pain Status: Acute (5) Metastatic primary lung cancer Status: Acute Review of Systems Constitutional: No fever Respiratory: No shortness of breath Cardiac: No chest pain Abdomen: + constipation, No pain, No nausea, No vomiting Objective Vital Signs Date Time Temp Pulse Resp B/P (MAP) Pulse Ox O2 Delivery O2 Flow Rate FiO2 11/29/17 08:26 97 Nasal Cannula 2.0 11/29/17 08:00 37.0 86 16 125/75 (92) 97 Nasal Cannula 2.0 11/29/17 07:30 Nasal Cannula 2.0 11/28/17 23:30 Room Air 2.0 11/28/17 23:10 37.1 88 16 113/75 (88) 98 Nasal Cannula 2.0 11/28/17 16:45 Nasal Cannula 2.0 11/28/17 16:45 37.3 80 18 118/69 (85) 98 Nasal Cannula 2.0 11/28/17 16:24 37.0 80 18 94 2.0 11/28/17 15:37 80 11/28/17 15:22 37.0 83 18 128/66 (86) 94 Nasal Cannula 2.0 11/28/17 12:01 37.5 82 18 100/55 (70) 94 Nasal Cannula 2.0 11/28/17 09:07 73 126/73 (90) Physical Exam General Appearance: no apparent distress, + obese, + pertinent finding (looks good!; eating breakfast) ENT: pharynx normal Neck: no JVD Respiratory/Chest: lungs clear, no respiratory distress, no accessory muscle use, + decreased breath sounds (left - most of hemithorax), + pertinent finding (dressing on mid left posterior back) Cardiovascular: regular rate, rhythm, no gallop, + systolic murmur (1/6 BETI LSB ) Abdomen: normal bowel sounds, non tender, soft, no organomegaly Extremities: + pedal edema (trace edema b/l; mild right thigh swelling) Neurologic/Psychiatric: alert, oriented x 3 Skin: + pertinent finding (dressings intact right thigh) Laboratory Results Last 24 Hours Test 11/28/17 14:00 11/29/17 05:32 White Blood Count 5.85 K/uL 4.94 K/uL Red Blood Count 3.28 M/uL 3.34 M/uL Hemoglobin 7.6 g/dL 7.7 g/dL Hematocrit 26.2 % 26.8 % Mean Corpuscular Volume 79.9 fL 80.2 fL Mean Corpuscular Hemoglobin 23.2 pg 23.1 pg Mean Corpuscular Hemoglobin Concent 29.0 g/dl 28.7 g/dl Platelet Count 271 K/uL 257 K/uL Mean Platelet Volume 9.3 fL 10.1 fL Neutrophils (%) (Auto) 68.8 % Lymphocytes (%) (Auto) 19.1 % Monocytes (%) (Auto) 10.8 % Eosinophils (%) (Auto) 0.9 % Basophils (%) (Auto) 0.2 % Neutrophils # (Auto) 4.03 K/uL Lymphocytes # (Auto) 1.12 K/uL Monocytes # (Auto) 0.63 K/uL Eosinophils # (Auto) 0.05 K/uL Basophils # (Auto) 0.01 K/uL RDW Standard Deviation 49.1 fL 49.8 fL RDW Coefficient of Variation 16.7 % 17.0 % Immature Granulocyte % (Auto) 0.2 % Immature Granulocyte # (Auto) 0.01 K/uL Giant Platelets 1+ Hypochromasia PRESENT Anisocytosis PRESENT Target Cells 1+ Sodium Level 144 mmol/L Potassium Level 3.9 mmol/L Chloride Level 106 mmol/L Carbon Dioxide Level 35 mmol/L Anion Gap 3.0 mmol/L Blood Urea Nitrogen 15 mg/dl Creatinine 0.60 mg/dl Est Creatinine Clear Calc Drug Dose 114.8 ml/min Estimated GFR () 118.9 Estimated GFR (Non- 102.6 BUN/Creatinine Ratio 24.6 Random Glucose 88 mg/dl Calcium Level 8.2 mg/dl Iron Level 14 mcg/dl Transferrin 133 mg/dl Transferrin % Saturation 7 % Ferritin 68.5 ng/ml Vitamin B12 Level 656 pg/mL Folate 7.70 ng/mL Assessment and Plan 57yo female - 1. pathological right proximal femur fracture, s/p ORIF by Dr. Ingram, POD #2 - appreciate ortho assistance. DVT proph - lovenox 40mg daily. PT, OT. Pain control. Dr. Townsend suggesting rad onc consult to see if spot radiation is needed. I spoke with Dr. Cuellar from rad onc this AM - their group will consult. 2. stage 4 adenocarcinoma of the lung - s/p left lung resection 4 years ago, ongoing oral chemo. Appreciate heme/onc consultation. 3. h/o PE - records indicate PEs were back in 2013. She is no longer on anticoagulation. She has an IVC filter in place. Lovenox for DVT proph post-op for at least 1 month. 4. anemia - likely 2nd to cancer. Folic acid is low-normal; will supplement. Trans-saturation is only 7% - will provide ferrous sulfate 325mg BID. Mild acute blood loss anemia 2nd to #1 - no transfusion today; repeat cbc in am ; if Hb is 7 or less then Tx 2 units PRBCs. 5. chronic hypoxic respiratory failure on home o2 - stable. 6. murmur - echo w/o significant valvular disease. This is likely a flow murmur/outflow tract murmur due to severe anemia. 7. chronic pain syndrome - I reviewed the [place] prescription database. The patient's report of norco 10's --- 20mg every 4 hours IS CORRECT. The patient's report of oxycodone 30mg every 3 hours IS CORRECT. These have been prescribed by her PCP. Fentanyl patch was increased to 75mcg q3d on 11/28. Increase Dilaudid to 1mg IV q3h prn. Cont celebrex 200 BID for a few days. Cont decadron 2mg daily as recommended by palliative for bone pain. Allow norco to be 20mg q4h given that this is truly her home dose. 8. h/o a. fib - clinically in NSR. Cont fleicanide. 9. DVT proph - lovenox 40mg daily. 10. FEN - diet as tolerated, lytes stable. 11. HTN - controlled. 12. hypothyroidism - TSH mildly high, FT4 borderline low. Consider titration of thyroid meds. 13. constipation/bowel regimen - miralax, senna. Passing flatus, await stool. d/c seals ambulate as tolerated Continued [facility] stay due to: inadequate oral pain control, voiding difficulties , ambulation difficulties, multiple IV medications needed Discharge planning: uncertain
--- NOTE | 2017-11-29 09:15 | Orthopedic Progress Note ---
Orthopedic Progress Note Date of Service Nov 29, 2017. Subjective Post OP Day: 2 Reports: feeling well, Denies: chest pain, SOB, nausea / vomiting, light headedness, calf pain Additional Notes: States most of her discomfort is in her upper incision but tolerating well. She and Dr Mcgrath discussed this AM her pain medication regimen. No new complaints. Objective calves soft nontender, N/V intact, dressing C/D/I, A&O x3, toes mobile Date Time Temp Pulse Resp B/P (MAP) Pulse Ox O2 Delivery O2 Flow Rate FiO2 11/29/17 08:26 97 Nasal Cannula 2.0 11/29/17 08:00 37.0 86 16 125/75 (92) 97 Nasal Cannula 2.0 11/29/17 07:30 Nasal Cannula 2.0 11/28/17 23:30 Room Air 2.0 11/28/17 23:10 37.1 88 16 113/75 (88) 98 Nasal Cannula 2.0 11/28/17 16:45 Nasal Cannula 2.0 11/28/17 16:45 37.3 80 18 118/69 (85) 98 Nasal Cannula 2.0 11/28/17 16:24 37.0 80 18 94 2.0 11/28/17 15:37 80 11/28/17 15:22 37.0 83 18 128/66 (86) 94 Nasal Cannula 2.0 11/28/17 12:01 37.5 82 18 100/55 (70) 94 Nasal Cannula 2.0 Laboratory Results 24 Hours: Test 11/28/17 14:00 11/29/17 05:32 White Blood Count 5.85 K/uL Red Blood Count 3.28 M/uL Hemoglobin 7.6 g/dL 7.7 g/dL Hematocrit 26.2 % 26.8 % Mean Corpuscular Volume 79.9 fL Mean Corpuscular Hemoglobin 23.2 pg Mean Corpuscular Hemoglobin Concent 29.0 g/dl Platelet Count 271 K/uL Mean Platelet Volume 9.3 fL Neutrophils (%) (Auto) 68.8 % Lymphocytes (%) (Auto) 19.1 % Monocytes (%) (Auto) 10.8 % Eosinophils (%) (Auto) 0.9 % Basophils (%) (Auto) 0.2 % Neutrophils # (Auto) 4.03 K/uL Lymphocytes # (Auto) 1.12 K/uL Monocytes # (Auto) 0.63 K/uL Eosinophils # (Auto) 0.05 K/uL Basophils # (Auto) 0.01 K/uL Assessment & Plan Assessment: POD 2 s/p Right TFN Plan: PT/OT pain management DVT prophylaxis with Lovenox Inhouse Planning Pain Management: [place], Dilaudid, other (Fentanyl) DVT Prophylaxis: TEDs, SCDs
[2017-11-29] MEDS: IPRATROPIUM BROMIDE/ALBUTEROL respimat INH INH SCH ×4 (09:20→21:29)
[2017-11-29] MEDS: CeleBREX 200 MG CAP PO SCH ×2 (09:21→21:30)
[2017-11-29] MEDS: VENLAFAXINE HCL XR 150 MG CAPXR PO SCH (09:21)
--- NOTE | 2017-11-29 09:21 | Consultant Recommendations ---
Regulatory Administrator Recommendations Date of Service Nov 29, 2017. Regulatory Administrator Recommendations U DISCHARGE INSTRUCTIONS: RIGHT HIP/FEMUR FRACTURE SELF CARE INSTRUCTIONS: A. You are to ambulate with a walker or crutches for approximately 6 weeks. B. You are WEIGHT BEARING TOLERATED on your operative lower extremity. C. Wear low heeled shoes with non-slip soles D. Be sure that your floors are free of things that could trip you throw rugs, electrical cords, and small objects. Avoid wet and waxed floors, especially with crutches/walker/cane. E. Try to walk several times a day with rest periods between. F. You may shower 48 hours after surgery and get the incision area wet, but DO NOT soak or submerge incision area in water. (No baths, swimming pools, hot tubs ) G. You may have a large, band-aid like dressing over your incision (Aquacel). This will remain on your incision for 7 days, and then can be removed. You CAN shower with this on. If incision is leaking through the dressing, please call the office . H. Do NOT apply soap or any ointment/lotions directly over incision. I. You may use ice as needed to operative site. SPECIAL CARE INSTRUCTIONS: VERY IMPORTANT TO READ AND REVIEW A. You may be at risk for phlebitis or blood clots. a. Wear surgical stockings (RENÉE hose) for 2 weeks after surgery to improve circulation and reduce swelling. b. LOVENOX 40mg SQ daily for 4 weeks or as directed by your physician. This is your blood thinner. B. There are a few signs you need to watch for after you are home. Call [facility] at [phone] if you experience any of the following: a. If you have a temperature of 101 degrees or higher, fever, chills. b. Sudden increase in pain in your hip not relieved by rest or pain medication. c. Any fluid or drainage from the incision; redness of the incision. d. Shortness of breath or chest pain. e. Any unanswered questions. C. Pain Medication: a. You will be prescribed pain medication upon discharge that should last till your first post-operative appointment. b. If you experience nausea and/or skin rash, discontinue this medication and contact our office for an alternative medication. c. Caution- narcotic pain medication can cause constipation. FOLLOW UP VISIT: Please call [facility] at [phone] to schedule a follow up appointment 10-14 days from the date of your surgery date.
[2017-11-29] MEDS: SENNA 8.6 MG TAB PO SCH (09:22)
[2017-11-29] MEDS: GABAPENTIN 600 MG TAB PO SCH ×3 (09:22→21:30)
[2017-11-29] MEDS: LACTOBACILLUS ACIDOPHILUS (FLORANEX) TAB PO SCH (09:22)
[2017-11-29] MEDS: VITAMIN B COMPLEX TAB PO SCH (09:23)
[2017-11-29] MEDS: ASCORBIC ACID 500 MG TAB PO SCH ×2 (09:23→21:31)
[2017-11-29] MEDS: ENOXAPARIN 40 MG/0.4 ML SYR SQ SCH (09:24)
[2017-11-29] MEDS: FLECAINIDE ACETATE 100 MG TAB PO SCH ×2 (09:24→21:31)
[2017-11-29] MEDS: FERROUS SULFATE 325 MG TAB PO SCH ×2 (09:44→21:32)
--- NOTE | 2017-11-29 10:05 | Radiation Oncology Consult ---
Radiation Oncology Consult Date / Reason Nov 29, 2017. Physicians Radiation Oncologist: Dr. Marybeth Cuellar Diagnosis (1) Lung cancer Onset Date: 10/22/2013 Permanent Comment: 1. Hemoptysis 2. CT of chest 10/12/2013 showing a left suprahilar mass extending into the left hilum 3. Status post fiberoptic bronchoscopy 10/22/2013 showing complete obstruction of the left upper lobe bronchus, biopsy showing poorly differentiated adenocarcinoma, clinical stage [id number] 4. Patient chose homeopathic therapy and did not take Tarceva 5. Status post bronchoscopy and left thoracotomy, drainage of pleural fluid and decortication with talc pleurodesis 01/09/2014 6. Initiation of combined radiation and chemotherapy. Radiation began 2013 received 11 fractions. She received 3 weekly cycles of Taxol carboplatin. 7. Admission due to lung abscess status postthoracotomy, decortication, drainage of abscess above the diaphragm on 02/18/2014 8. Recovery and then reinitiation and completion of combined radiation and chemotherapy. Radiation completed 04/12/2014 received 7000 cGy 9. Recurrent infections of abscess status post left thoracotomy with resection of ribs 8 and 9 and creation of open thoracotomy wound with skin flap, partial pulmonary decortication 09/16/2014 10. Brain metastasis 11. Status post gamma knife 04/01/2015 at [facility] 12. Systemic treatment with Tarceva, treatment stopped due to side effects 13. Systemic chemotherapy with Tagrisso 14. Right groin pain with finding of bone metastasis 15. Status post completion of radiation therapy to the right hip 12/08/2016 received 3000 cGy. Last Edited By: Marybeth Cuellar on Nov 29, 2017 10:05 History of Present Illness I am seeing Ms. Car in consultation at the request of Dr. Townsend and Dr. Lee. ECOG PS: 3 Ms. Car is a 55-year-old female with metastatic non-small cell lung carcinoma that is EGFR positive mutation. She is currently under treatment with Dr. Townsend and receiving Tagrisso. More recently, she was complaining of right hip pain in the outpatient setting. Her pain got significantly worse and she presented to the emergency department. 11/26/2017 --- femur x-ray --- IMPRESSION: Acute pathologic fracture of the proximal femoral diaphysis extending through the previously described sclerotic metastatic lesion. 11/27/2017 --- lower extremity MRI --- IMPRESSION: 1. Marrow replacing metastatic lesion of the proximal femur intertrochanteric and subtrochanteric region redemonstrated measuring up to 7.7 cm in length. Subacute appearing pathologic fracture through the central to inferior margin of the mass redemonstrated without displacement. 2. Moderate periosteal edema with edema in the adjacent vastus intermedius intermedius may be reactive or reflect soft tissue component of the metastatic lesion, not definitively seen without the use of IV contrast. 3. 5.7 cm cystic lesion of the central pelvis suggests ovarian etiology. This could be correlated with pelvic ultrasound if clinically indicated. 11/27/2017 --- open reduction internal fixation of right pathologic femur fracture by Dr. Ingram with biopsy of femur --- pathology results still pending. 11/27/2017 --- hip x-ray --- IMPRESSION: Status post internal fixation of a right femoral subtrochanteric pathologic fracture. The hardware is intact. 11/28/2017 --- medical oncology consultation by Dr. Sridhar Townsend --- Dr. Townsend recommends continuation of systemic therapy in the outpatient setting. Dr. Townsend requested radiation oncology consultation. We are now seeing the patient in consultation discuss role of radiation therapy. Past History Past Medical/Surgical History: COPD Social History Smoking Status: Former Smoker Hx Tobacco Use In Past Year?: No Quit Date: Oct 13, 2013 Do You Dip or Chew Tobacco: No Hx Alcohol Use: No Hx Substance Use : No Allergies Coded Allergies: No Known Allergies (Unverified , 11/18/14) Home Medications Scheduled Ascorbic Acid (Vitamin C), 1,000 MG PO BID Celecoxib (Celecoxib), 100 MG PO BID Cholecalciferol (Vitamin D3), 6,000 INTER.UNIT PO DAILY Coenzyme Q10 (Ubidecarenone) (Co Q-10), 2 TABS PO BID Digoxin (Digoxin), 0.25 MG PO DAILY Fentanyl (Duragesic), 50 MCG TD [id number] Flecainide Acetate (Flecainide Acetate), 150 MG PO Q12 Fluticasone Propionate (Nasal) (Flonase Allergy Relief), 2 SPRAYS DON DAILY Gabapentin (Gabapentin), 600 MG PO TID Rykrgizpgnu-Zwkqjulcwgp-Ary C- (Glucosamine Chondroitin), 1 CAP PO BID Ipratropium-Albuterol (Combivent Respimat), 1 PUFFS INH QID Osimertinib Mesylate (Tagrisso), 80 MG PO DAILY Probiotic Product (Probiotic), 2 CAP PO DAILY Thyroid (Thyroid Extract), 60 MG PO DAILY Venlafaxine Hcl (Effexor Extended Rel), 150 MG PO DAILY Vitamin B Complex (Vitamin B Complex), 1 TAB PO DAILY [Magnesium Citrate], 625 MG PO DAILY Scheduled PRN Bumetanide (Bumetanide), 1-2 TABS PO DAILY PRN for FLUID RETENTION Diphenhydramine HCl (Diphenhydramine HCl), 25-50 MG PO HS PRN for Sleep Lorazepam (Lorazepam), 2 MG PO BID PRN for Anxiety Ondansetron (Ondansetron HCl), 8 MG PO Q4 PRN for Nausea or Vomiting Oxycodone Hcl (Oxycodone Hcl), 10 MG PO Q3H PRN for Pain Review of Systems Extremities: Hx Deep Vein Thrombosis: No Eyes: Hx Cataracts: No Ear/Hearing: Ear Side: Bilateral Hearing Ability: Normal Hearing Aid: None Edema: Present?: Yes Location Body Site Modifier: Bilateral Type: Non-pitting Degree: Trace Sexuality-Female: Patient ?: No Physical Exam Height: 5 (Feet) 1.00 (Inches) 154.9 (Centimeters) 1.5494 (Meters) Weight: 220 (Pounds) 7.4 (Ounces) 100.000 (Kilograms) 249395.000 (Grams) Date Time Temp Pulse Resp B/P (MAP) Pulse Ox O2 Delivery O2 Flow Rate FiO2 11/29/17 08:26 97 Nasal Cannula 2.0 11/29/17 08:00 37.0 86 16 125/75 (92) 97 Nasal Cannula 2.0 11/29/17 07:30 Nasal Cannula 2.0 11/28/17 23:30 Room Air 2.0 11/28/17 23:10 37.1 88 16 113/75 (88) 98 Nasal Cannula 2.0 11/28/17 16:45 Nasal Cannula 2.0 11/28/17 16:45 37.3 80 18 118/69 (85) 98 Nasal Cannula 2.0 11/28/17 16:24 37.0 80 18 94 2.0 11/28/17 15:37 80 11/28/17 15:22 37.0 83 18 128/66 (86) 94 Nasal Cannula 2.0 11/28/17 12:01 37.5 82 18 100/55 (70) 94 Nasal Cannula 2.0 General Appearance: WD/WN, no apparent distress Head: normocephalic Eyes: normal inspection ENT: normal ENT inspection Respiratory/Chest: chest non-tender, lungs clear, normal breath sounds, no respiratory distress Cardiovascular: regular rate, rhythm, no edema, no gallop, no JVD Back: normal inspection Extremities: normal inspection, + pertinent finding (S/P R Hip surgery, bandages covering sutures. Did not remove at time of examination. ) Neurologic/Psych: turn down attendant II-XII nml as tested, normal mood/affect, oriented x 3 Pain Management Patient Reports Pain: Yes (Reported to DAWIT Mcgill) Side: Right Pain Location: Leg Patient Preferred Pain Scale: 0 - 10 Initial Pain Intensity: 7.0 Level of Consciousness: Spontaneously Alert Relief Measures: Repositioning, Distraction Pain Medication Comment: patient reports 10/10 with movement and 5/10 at rest Pain Intervention: See MAR Pain Management Plan Refer to inpatient primary team management. Laboratory Laboratory Results: were reviewed Pathology Pathology Results: pending Imaging Imaging Studies: were reviewed, and pertinent findings noted in HPI Assessment & Recommendations Assessment: Ms. Car is a 57-year-old female with metastatic non-small cell lung carcinoma currently under treatment with Tagrisso underneath the supervision of Dr. Sridhar Townsend in the outpatient setting. The patient was admitted to the hospital and was found to have a right pathologic fracture involving the right femur and underwent an open reduction internal fixation by Dr. Ingram. Currently, her pain is much more well controlled since her surgery. She is still having some postoperative symptoms however she is doing quite well overall. We were asked to evaluate her for consideration of postoperative radiation therapy. Recommendation: Continue on systemic therapy underneath the supervision of Dr. Sridhar Townsend. Given the fact that the patient previously had radiation therapy and her pathologic fracture was in the treatment field, we have advised against radiation therapy unless the patient develops pain in the same region again that we believe is consistent with metastatic disease/progression of disease. Currently she is doing well and the procedure relieved the pain she was experiencing before. Dr. Townsend may refer the patient back to us if there is concern for progression of disease involving the right femur and we would be willing to reconsider reirradiation to that area. Please call us with any further questions or concerns. The patient had multiple questions which were answered to their full satisfaction. Thank you for allowing us to participate in the care of this patient. This chart was completed in part utilizing [employer] Speech Voice Recognition software. Attempts were made to minimize the grammatical errors, random word insertions, pronoun errors and incomplete sentences. Any formal questions or concerns about the content, text or information contained within the body of this dictation should be directly addressed to the provider for clarification. Marybeth Cuellar MD Department of Radiation Oncology [facility] Total Time In Consultation I spent 25 minutes examining and counseling the patient. I spent 15 minutes completing this note. 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
[2017-11-29] MEDS: DEXAMETHASONE 1 MG TAB PO SCH (10:16)
[2017-11-29 11:34] VITALS: BP 97/60; PULSE 78; TEMP 37; O2SAT 99
[2017-11-29] MEDS: DIGOXIN 0.25 MG TAB PO SCH (15:30)
[2017-11-29 16:36] VITALS: BP 109/70; PULSE 81; TEMP 36.9; O2SAT 96
[2017-11-29] MEDS: OSIMERTINIB MESYLATE 80 MG PO SCH (18:16)
[2017-11-29] MEDS: POLYETHYLENE (MIRALAX) 17 GM PACK PO SCH (21:00)
[2017-11-29 23:15] VITALS: BP 124/54; PULSE 80; TEMP 37; O2SAT 94
[2017-11-30] MEDS ORDERED: NURSING DECISION MEDICATION ORDER SCH (00:15)
[2017-11-30] MEDS ORDERED: COUGH DROP (SUGAR FREE) LOZ 24 LOZ/1 BOX LOZ ONE (00:17)
[2017-11-30] MEDS ORDERED: COUGH DROP (SUGAR FREE) LOZ 24 LOZ/1 BOX LOZ PRN (01:00)
[2017-11-30] MEDS: HYDROmorphone INJ 0.5 MG/0.5 ML SYR IV PRN ×7 (01:16→20:50)
[2017-11-30] MEDS: HYDROCODONE/ACETAMI 10/325 TAB PO PRN ×5 (02:58→20:12)
[2017-11-30] MEDS: LORAZEPAM 2 MG TAB PO PRN (04:08)
[2017-11-30 06:04] LABS: HEMATOCRIT 26.4 % (37-47); HEMOGLOBIN 7.7 g/dL (12.0-16.0); MEAN CORPUSCULAR HEMOGLOBIN 23.3 pg (25-34); MEAN CORPUSCULAR HGB CONC 29.2 g/dl (32-36); MEAN PLATELET VOLUME 10.5 fL (7.4-10.4); PLATELET COUNT 286 K/uL (130-400); RED CELL DISTRIBUTION WIDTH SD 49.5 fL (36.4-46.3)
[2017-11-30 06:23] LABS: CALCIUM 8.1 mg/dl (8.5-10.1); CREATININE 0.58 mg/dl (0.60-1.20); POTASSIUM 3.7 mmol/L (3.5-5.1)
[2017-11-30 07:39] VITALS: BP 121/72; PULSE 70; TEMP 36.5; O2SAT 91
[2017-11-30 07:49] VITALS: BP 123/64; PULSE 77; TEMP 37; O2SAT 99
[2017-11-30] MEDS: POLYETHYLENE (MIRALAX) 17 GM PACK PO SCH ×2 (08:02→20:33)
[2017-11-30] MEDS: IPRATROPIUM BROMIDE/ALBUTEROL respimat INH INH SCH ×4 (08:03→20:31)
[2017-11-30] MEDS: FLUTICASONE PROPIONATE NA SPR 16 GM BTL NAE SCH (08:03)
[2017-11-30] MEDS: ARMOUR THYROID 30 MG TAB PO SCH (08:03)
[2017-11-30] MEDS: CeleBREX 200 MG CAP PO SCH ×2 (08:04→20:32)
[2017-11-30] MEDS: DEXAMETHASONE 1 MG TAB PO SCH (08:05)
[2017-11-30] MEDS: VENLAFAXINE HCL XR 150 MG CAPXR PO SCH (08:05)
[2017-11-30] MEDS: LACTOBACILLUS ACIDOPHILUS (FLORANEX) TAB PO SCH (08:06)
[2017-11-30] MEDS: FERROUS SULFATE 325 MG TAB PO SCH ×2 (08:06→20:32)
[2017-11-30] MEDS: GABAPENTIN 600 MG TAB PO SCH ×3 (08:12→20:33)
[2017-11-30] MEDS: FLECAINIDE ACETATE 100 MG TAB PO SCH ×2 (08:12→20:33)
[2017-11-30] MEDS: SENNA 8.6 MG TAB PO SCH (08:12)
[2017-11-30] MEDS: ASCORBIC ACID 500 MG TAB PO SCH ×2 (08:13→20:33)
[2017-11-30] MEDS: VITAMIN B COMPLEX TAB PO SCH (08:13)
[2017-11-30] MEDS: ENOXAPARIN 40 MG/0.4 ML SYR SQ SCH (08:14)
[2017-11-30] MEDS: CHECK FENTANYL PATCH PLACEMENT SCH ×3 (08:15→23:20)
--- NOTE | 2017-11-30 08:50 | Orthopedic Progress Note ---
Orthopedic Progress Note Date of Service Nov 30, 2017. Subjective Post OP Day: 3 Reports: feeling well, Denies: complaints Additional Notes: Pt sitting up at bedside eating breakfast. No new complaints. Comfortable. Objective calves soft nontender, N/V intact, dressing C/D/I, A&O x3, toes mobile Date Time Temp Pulse Resp B/P (MAP) Pulse Ox O2 Delivery O2 Flow Rate FiO2 11/30/17 07:49 37.0 77 16 123/64 (83) 99 Nasal Cannula 2.0 11/29/17 23:30 Room Air 2.0 11/29/17 23:15 37.0 80 16 124/54 (77) 94 Nasal Cannula 2.0 11/29/17 16:36 36.9 81 17 109/70 (83) 96 Room Air 11/29/17 15:30 Nasal Cannula 2.0 11/29/17 15:30 72 11/29/17 11:34 37.0 78 16 97/60 (72) 99 Nasal Cannula 2.0 Laboratory Results 24 Hours: Test 11/30/17 05:18 Hematocrit 26.4 % Hemoglobin 7.7 g/dL Assessment & Plan Assessment: POD 3 s/p Right TFN Stage 4 Lung Ca with likely mets to Right proximal femur Ongoing Anemia Plan: PT/OT pain management DVT prophylaxis with Lovenox Anemia as per Med Service Pathology specimen pending Planning for SNF upon DC Orthopedically stable. We will sign off for now. Please call with any questions. Instructions placed in EMR Inhouse Planning Pain Management: [place], Dilaudid, other (Fentanyl) DVT Prophylaxis: TEDs, SCDs, Lovenox Discharge Planning Discharge Planning: intermediate facility
[2017-11-30] MEDS: PANTOprazole SOD 40 MG TAB PO SCH (08:57)
[2017-11-30] MEDS ORDERED: FENTANYL PATCH REMOVE & WASTE SCH ×2 (14:29)
[2017-11-30 14:56] VITALS: BP 135/82; PULSE 67; TEMP 37; O2SAT 98
[2017-11-30] MEDS ORDERED: LORAZEPAM 2 MG TAB PO ONE (15:00)
[2017-11-30] MEDS: DIGOXIN 0.25 MG TAB PO SCH (16:21)
[2017-11-30] MEDS: OSIMERTINIB MESYLATE 80 MG PO SCH (17:45)
[2017-11-30] MEDS ORDERED: NURSING VERBAL MED ORDER ONE (20:15)
[2017-11-30] MEDS: LORAZEPAM 2 MG TAB PO SCH (20:30)
[2017-11-30] MEDS ORDERED: LORAZEPAM 2 MG TAB PO SCH (21:00)
[2017-11-30 23:10] VITALS: BP 169/77; PULSE 78; TEMP 37.2; O2SAT 99
--- NOTE | 2017-11-30 23:23 | Progress Note ---
Subjective Date of Service: Nov 30, 2017. Subjective Pt evaluation today including: conversation w/ patient, physical exam, chart review, lab review, review of inpatient medication list Pain: right leg but controlled w/ IV dilaudid PO Intake: eating well Voiding: no voiding problems having bowel movements more mobile today and weight bearing well no dyspnea, abd pain or chest pain expressed interest in going to [facility] for rehab no new complaints Problem List Medical Problems: (1) Anasarca Status: Acute (2) Cellulitis of left lower extremity Status: Acute (3) Hemoptysis Status: Acute (4) Intractable pain Status: Acute (5) Metastatic primary lung cancer Status: Acute Review of Systems Constitutional: No fever Respiratory: No wheezing, No shortness of breath, No dyspnea on exertion Cardiac: No chest pain Abdomen: No pain Objective Vital Signs Date Time Temp Pulse Resp B/P (MAP) Pulse Ox O2 Delivery O2 Flow Rate FiO2 11/30/17 16:21 68 11/30/17 15:45 Nasal Cannula 2.0 11/30/17 14:56 37.0 67 17 135/82 (99) 98 Room Air 11/30/17 08:10 Nasal Cannula 2.0 11/30/17 07:49 37.0 77 16 123/64 (83) 99 Nasal Cannula 2.0 11/29/17 23:30 Room Air 2.0 11/29/17 23:15 37.0 80 16 124/54 (77) 94 Nasal Cannula 2.0 Physical Exam General Appearance: no apparent distress, + obese ENT: pharynx normal Neck: no JVD Respiratory/Chest: lungs clear, no respiratory distress, no accessory muscle use, + decreased breath sounds (left base), + pertinent finding (dressing in place on left posterior back) Cardiovascular: regular rate, rhythm, no gallop, + systolic murmur (1-2/6 LSB) Abdomen: normal bowel sounds, non tender, soft, no organomegaly Extremities: no pedal edema Neurologic/Psychiatric: alert, oriented x 3 Skin: + pertinent finding (dressings intact to right leg) Laboratory Results Last 24 Hours Test 11/30/17 05:18 White Blood Count 6.20 K/uL Red Blood Count 3.30 M/uL Hemoglobin 7.7 g/dL Hematocrit 26.4 % Mean Corpuscular Volume 80.0 fL Mean Corpuscular Hemoglobin 23.3 pg Mean Corpuscular Hemoglobin Concent 29.2 g/dl RDW Standard Deviation 49.5 fL RDW Coefficient of Variation 17.0 % Platelet Count 286 K/uL Mean Platelet Volume 10.5 fL Sodium Level 141 mmol/L Potassium Level 3.7 mmol/L Chloride Level 105 mmol/L Carbon Dioxide Level 33 mmol/L Anion Gap 3.0 mmol/L Blood Urea Nitrogen 15 mg/dl Creatinine 0.58 mg/dl Est Creatinine Clear Calc Drug Dose 117.1 ml/min Estimated GFR () 120.3 Estimated GFR (Non- 103.8 BUN/Creatinine Ratio 26.1 Random Glucose 89 mg/dl Calcium Level 8.1 mg/dl Assessment and Plan 57yo female - 1. pathological right proximal femur fracture, s/p ORIF by Dr. Ingram, POD #3 - appreciate ortho assistance. DVT proph - lovenox 40mg daily. PT, OT. Pain control. Rad onc evaluated - no additional radiation needed. 2. stage 4 adenocarcinoma of the lung - s/p left lung resection 4 years ago, ongoing oral chemo. Appreciate heme/onc consultation. 3. h/o PE - records indicate PEs were back in 2013. She has an IVC filter in place. Lovenox for DVT proph post-op for at least 1 month. 4. anemia - likely 2nd to cancer. Folic acid is low-normal; will supplement. Trans-saturation is only 7% - will provide ferrous sulfate 325mg BID. Mild acute blood loss anemia 2nd to #1 - no transfusion today; repeat cbc in am. 5. chronic hypoxic respiratory failure on home o2 - stable. 6. murmur - echo w/o significant valvular disease. This is likely a flow murmur/outflow tract murmur due to severe anemia. 7. chronic pain syndrome - I reviewed the [place] prescription database. The patient's report of norco 10's --- 20mg every 4 hours IS CORRECT. The patient's report of oxycodone 30mg every 3 hours IS CORRECT. These have been prescribed by her PCP. Fentanyl patch was increased to 75mcg q3d on 11/28. Cont Dilaudid 1mg IV q3h prn. Cont celebrex 200 BID for a few days. Cont decadron 2mg daily as recommended by palliative for bone pain. Cont norco 20mg q4h PRN given that this is her home dose. 8. h/o a. fib - clinically in NSR. Cont fleicanide. 9. DVT proph - lovenox 40mg daily. 10. FEN - diet as tolerated, lytes stable. 11. HTN - controlled. 12. hypothyroidism - TSH mildly high, FT4 borderline low. Consider titration of thyroid meds. 13. constipation - resolved; continue bowel regimen. dispo - SNF Continued [facility] stay due to: inadequate oral pain control, multiple IV medications needed Discharge planning: [facility]
[2017-12-01] MEDS: HYDROmorphone INJ 0.5 MG/0.5 ML SYR IV PRN ×6 (00:06→21:33)
[2017-12-01] MEDS: HYDROCODONE/ACETAMI 10/325 TAB PO PRN ×5 (00:57→22:30)
[2017-12-01 07:24] LABS: CREATININE 0.7 mg/dl (0.60-1.20)
[2017-12-01 07:42] VITALS: BP 137/79; PULSE 70; TEMP 36.5; O2SAT 99
[2017-12-01] MEDS: CHECK FENTANYL PATCH PLACEMENT SCH ×3 (08:00→23:48)
[2017-12-01 08:16] VITALS: O2SAT 100
[2017-12-01] MEDS ORDERED: FENTANYL PATCH REMOVE & WASTE SCH ×2 (08:59)
[2017-12-01] MEDS: FLUTICASONE PROPIONATE NA SPR 16 GM BTL NAE SCH (09:00)
[2017-12-01] MEDS: POLYETHYLENE (MIRALAX) 17 GM PACK PO SCH ×2 (09:00→20:35)
[2017-12-01] MEDS: FENTANYL 75 MCG/HR TDSY TD SCH (09:07)
[2017-12-01] MEDS: ARMOUR THYROID 30 MG TAB PO SCH (09:10)
[2017-12-01] MEDS: FERROUS SULFATE 325 MG TAB PO SCH ×2 (09:10→20:35)
[2017-12-01] MEDS: IPRATROPIUM BROMIDE/ALBUTEROL respimat INH INH SCH ×4 (09:10→20:35)
[2017-12-01] MEDS: VITAMIN B COMPLEX TAB PO SCH (09:11)
[2017-12-01] MEDS: VENLAFAXINE HCL XR 150 MG CAPXR PO SCH (09:11)
[2017-12-01] MEDS: DEXAMETHASONE 1 MG TAB PO SCH (09:11)
[2017-12-01] MEDS: CeleBREX 200 MG CAP PO SCH ×2 (09:11→20:35)
[2017-12-01] MEDS: FLECAINIDE ACETATE 100 MG TAB PO SCH ×2 (09:12→20:36)
[2017-12-01] MEDS: LACTOBACILLUS ACIDOPHILUS (FLORANEX) TAB PO SCH (09:13)
[2017-12-01] MEDS: GABAPENTIN 600 MG TAB PO SCH ×3 (09:13→20:35)
[2017-12-01] MEDS: ASCORBIC ACID 500 MG TAB PO SCH ×2 (09:13→20:35)
[2017-12-01] MEDS: SENNA 8.6 MG TAB PO SCH (09:13)
[2017-12-01] MEDS: PANTOprazole SOD 40 MG TAB PO SCH (09:13)
[2017-12-01] MEDS: ENOXAPARIN 40 MG/0.4 ML SYR SQ SCH (09:14)
[2017-12-01] MEDS: LORAZEPAM 2 MG TAB PO SCH ×2 (14:47→19:32)
[2017-12-01 15:04] VITALS: BP 144/75; PULSE 96; TEMP 37; O2SAT 93
[2017-12-01] MEDS: DIGOXIN 0.25 MG TAB PO SCH (16:08)
[2017-12-01] MEDS: OSIMERTINIB MESYLATE 80 MG PO SCH (18:03)
[2017-12-01 22:49] VITALS: BP 124/76; PULSE 80; TEMP 36.9; O2SAT 97
[2017-12-02] MEDS: HYDROmorphone INJ 0.5 MG/0.5 ML SYR IV PRN ×5 (00:42→14:42)
[2017-12-02] MEDS: HYDROCODONE/ACETAMI 10/325 TAB PO PRN ×3 (02:35→16:48)
[2017-12-02 07:35] VITALS: BP 145/81; PULSE 71; TEMP 36.7; O2SAT 96
--- NOTE | 2017-12-02 07:44 | Progress Note ---
Subjective Date of Service: Dec 01, 2017. Subjective Pt evaluation today including: conversation w/ patient, conversation w/ family ( by phone), physical exam, chart review, lab review, conversation w/ franchise business consultant (heme/onc) Pain: right hip PO Intake: normal Voiding: no voiding problems feeling great just pain in right leg doing well with PT, OT +bowel movements no new concerns Problem List Medical Problems: (1) Anasarca Status: Acute (2) Cellulitis of left lower extremity Status: Acute (3) Hemoptysis Status: Acute (4) Intractable pain Status: Acute (5) Metastatic primary lung cancer Status: Acute Review of Systems Constitutional: No fever Respiratory: No cough Cardiac: No chest pain Abdomen: No pain, No nausea, No vomiting Objective Vital Signs Date Time Temp Pulse Resp B/P (MAP) Pulse Ox O2 Delivery O2 Flow Rate FiO2 12/01/17 16:08 95 12/01/17 16:00 Room Air 12/01/17 15:04 37.0 96 18 144/75 (98) 93 12/01/17 08:16 100 Room Air 2.0 12/01/17 08:00 Nasal Cannula 2.0 12/01/17 07:42 36.5 70 17 137/79 (98) 99 Room Air 11/30/17 23:15 Nasal Cannula 2.0 11/30/17 23:10 37.2 78 16 169/77 (107) 99 Room Air Physical Exam General Appearance: no apparent distress, + obese ENT: pharynx normal Neck: no JVD Respiratory/Chest: lungs clear, no respiratory distress, no accessory muscle use, + decreased breath sounds (left) Cardiovascular: regular rate, rhythm, no gallop, + systolic murmur (1/6 BETI LSB ) Abdomen: normal bowel sounds, non tender, soft, no organomegaly Extremities: + pedal edema (trace b/l ), + swelling (right thigh ) Neurologic/Psychiatric: alert, oriented x 3 Skin: + pallor Laboratory Results Last 24 Hours Test 12/01/17 06:35 Hemoglobin 7.8 g/dL Creatinine 0.70 mg/dl Est Creatinine Clear Calc Drug Dose 97.0 ml/min Estimated GFR () 113.0 Estimated GFR (Non- 97.5 Assessment and Plan 57yo female - 1. pathological right proximal femur fracture, s/p ORIF by Dr. Ingram, POD #4 - appreciate ortho assistance. DVT proph - lovenox 40mg daily. PT, OT. Pain control. Rad onc evaluated - no additional radiation needed. 2. stage 4 adenocarcinoma of the lung - s/p left lung resection 4 years ago, ongoing oral chemo. Appreciate heme/onc consultation. 3. h/o PE - records indicate PEs were back in 2013. She has an IVC filter in place. Lovenox for DVT proph post-op for at least 1 month. 4. anemia - likely 2nd to cancer. Folic acid is low-normal; will supplement. Trans-saturation is only 7% - will also provide ferrous sulfate 325mg BID. Mild acute blood loss anemia 2nd to #1 but H/H stable since her operation. I spoke with heme/onc today - she is not symptomatic from her Hb in the 7's - continue to observe. 5. chronic hypoxic respiratory failure on home o2 - stable. 6. murmur - echo w/o significant valvular disease. This is likely a flow murmur/outflow tract murmur due to severe anemia. 7. chronic pain syndrome - I reviewed the [place]. The patient's report of norco 10's --- 20mg every 4 hours IS CORRECT. The patient's report of oxycodone 30mg every 3 hours IS CORRECT. These have been prescribed by her PCP. Fentanyl patch was increased to 75mcg q3d on 11/28. Consider titration prior to d/c. Cont Dilaudid 1mg IV q3h prn. Cont celebrex 200 BID for a few days. Cont decadron 2mg daily as recommended by palliative for bone pain. Cont norco 20mg q4h PRN given that this is her home dose. 8. h/o a. fib - clinically in NSR. Cont fleicanide. 9. DVT proph - lovenox 40mg daily. 10. FEN - diet as tolerated, lytes stable. 11. HTN - controlled. 12. hypothyroidism - TSH mildly high, FT4 borderline low. Consider titration of thyroid meds. 13. constipation - resolved; continue bowel regimen. dispo - SNF - [facility] spoke with Yogi today - updated him spoke with vp digital marketing social media and crm today - hopefully d/c tomorrow pending auth Continued [facility] stay due to: inadequate oral pain control, multiple IV medications needed [facility]charge planning[facility] facility
[2017-12-02] MEDS: CHECK FENTANYL PATCH PLACEMENT SCH (08:00)
[2017-12-02] MEDS: ARMOUR THYROID 30 MG TAB PO SCH (08:14)
[2017-12-02 08:54] LABS: HEMATOCRIT 26.3 % (37-47); HEMOGLOBIN 7.7 g/dL (12.0-16.0); MEAN CELL VOLUME 80.2 fL (80-100); MEAN CORPUSCULAR HEMOGLOBIN 23.5 pg (25-34); MEAN CORPUSCULAR HGB CONC 29.3 g/dl (32-36); MEAN PLATELET VOLUME 9.7 fL (7.4-10.4); PLATELET COUNT 268 K/uL (130-400); RED CELL DISTRIBUTION WIDTH CV 17.1 % (11.5-14.5); RED CELL DISTRIBUTION WIDTH SD 50.2 fL (36.4-46.3); WHITE BLOOD COUNT 5.07 K/uL (4.8-10.8)
[2017-12-02] MEDS: FLUTICASONE PROPIONATE NA SPR 16 GM BTL NAE SCH (09:00)
[2017-12-02 09:08] VITALS: O2SAT 97
[2017-12-02 09:18] LABS: CALCIUM 8.5 mg/dl (8.5-10.1); CREATININE 0.63 mg/dl (0.60-1.20); POTASSIUM 3.7 mmol/L (3.5-5.1)
[2017-12-02] MEDS: IPRATROPIUM BROMIDE/ALBUTEROL respimat INH INH SCH ×2 (10:31→14:41)
[2017-12-02] MEDS: CeleBREX 200 MG CAP PO SCH (10:32)
[2017-12-02] MEDS: DEXAMETHASONE 1 MG TAB PO SCH (10:33)
[2017-12-02] MEDS: VENLAFAXINE HCL XR 150 MG CAPXR PO SCH (10:33)
[2017-12-02] MEDS: PANTOprazole SOD 40 MG TAB PO SCH (10:34)
[2017-12-02] MEDS: LACTOBACILLUS ACIDOPHILUS (FLORANEX) TAB PO SCH (10:34)
[2017-12-02] MEDS: FERROUS SULFATE 325 MG TAB PO SCH (10:34)
[2017-12-02] MEDS: SENNA 8.6 MG TAB PO SCH (10:35)
[2017-12-02] MEDS: GABAPENTIN 600 MG TAB PO SCH ×2 (10:35→14:41)
[2017-12-02] MEDS: POLYETHYLENE (MIRALAX) 17 GM PACK PO SCH (10:35)
[2017-12-02] MEDS: FLECAINIDE ACETATE 100 MG TAB PO SCH (10:36)
[2017-12-02] MEDS: VITAMIN B COMPLEX TAB PO SCH (10:36)
[2017-12-02] MEDS: ASCORBIC ACID 500 MG TAB PO SCH (10:37)
[2017-12-02] MEDS: ENOXAPARIN 40 MG/0.4 ML SYR SQ SCH (10:37)
[2017-12-02] MEDS ORDERED: FENTANYL PATCH REMOVE & WASTE SCH (10:44)
[2017-12-02] MEDS ORDERED: FENTANYL 100 MCG/HR TDSY TD SCH (10:45)
[2017-12-02] MEDS ORDERED: FUROSEMIDE 20 MG TAB PO STA (14:26)
[2017-12-02] MEDS ORDERED: BISACODYL 5 MG TABEC PO ONE (14:30)
[2017-12-02] MEDS: LORAZEPAM 2 MG TAB PO SCH (14:53)
[2017-12-02] MEDS ORDERED: CHECK FENTANYL PATCH PLACEMENT SCH (16:00)
[2017-12-02 16:04] VITALS: BP 110/81; PULSE 78; TEMP 36.9; O2SAT 94
[2017-12-02 17:56] VITALS: BP 110/81; PULSE 78; TEMP 36.9; O2SAT 94
[2017-12-02] MEDS ORDERED: ATV2 PO (18:19)
[2017-12-02] MEDS ORDERED: MRLP17 PO (18:19)
[2017-12-02] MEDS ORDERED: LVNIS40 SQ (18:19)
[2017-12-02] MEDS ORDERED: DIPH25CA48 PO (18:19)
[2017-12-02] MEDS ORDERED: DXM1 PO (18:19)
[2017-12-02] MEDS ORDERED: SENN-61 PO (18:19)
[2017-12-02] MEDS ORDERED: FLV1 PO (18:19)
[2017-12-02] MEDS ORDERED: OXYC30TA PO (18:19)
[2017-12-02] MEDS ORDERED: FRRS300 PO (18:19)
[2017-12-02] MEDS ORDERED: ONDA-63 PO (18:19)
[2017-12-02] MEDS ORDERED: PANT1TAB4 PO (18:19)
[2017-12-02] MEDS ORDERED: DRGTP100 TOP (18:19)
--- NOTE | 2017-12-02 18:25 | Discharge Instructions ---
Discharge Instructions Date of Service Dec 02, 2017. Admission Reason for Admission: right pathological femur fracture s/p repair Discharge Discharge Diagnosis / Problem: right pathological femur fracture s/p repair Discharge Goals Goal(s): Learn about illness, Diagnostic testing, Therapeutic intervention Activity Recommendations Activity Level: Assistance Required Therapies: Physical Therapy, Occupational Therapy Weightbearing Status: Right weightbearing (as tolerated) . Additional Information Patient informed of condition: Yes Advance Directives: Yes DNR: No Level of Care: Skilled Communicable Disease: No Prognosis: Stable Oxygen at (LPM): 2 liters PRN [place] Catheter: No Instructions / Follow-Up Instructions / Follow-Up See Dr. Ingram or one of his associates in 10 days at [facility] for recheck of right leg See Dr. Sharri Virk, palliative care, within 5-[address] Sridhar Townsend [facility] - within 1 week Current Hospital Diet Patient's current hospital diet: Regular Diet Discharge Diet Recommended Diet: Regular Diet Procedures Procedures Performed: 1. Open reduction internal fixation with Synthes Long trochanteric fixation intermedulary nail right femur fracture 2. Right proximal femoral intramedullary biopsy Pending Studies Studies pending at discharge: no Physician Orders On Transfer Special Precautions: fall precautions Dressing Changes: 1. to right thigh/femur incisions - every other day and PRN 2. left mid-back - dressing changes to be performed by the patient's Yogi IV Therapy: none Vital Signs: per routine Weigh: please inform medical research assistant of any weight gain of more than 2-3 pounds in 1- 2 days Additional Orders: CBC in 48 hours BMP and Magnesium level in 48 hours report results to medical research assistant of [facility] POL Discussion: Not Applicable Medical Emergencies . Who to Call and When: Medical Emergencies: If at any time you feel your situation is an emergency, please call 911 immediately. . Non-Emergent Contact Non-Emergency issues call your: Primary Care Provider, Oncologist Call Non-Emergent contact if: temperature is above 100.5, your pain is not controlled, your pain is worsening, your pain is unusual for you, your pain is concerning you, wound has increased drainage, wound has increased redness, wound has increased pain, you have any medication questions . . "Provider Documentation" section prepared by Catracho Mcgrath. . Process Engineering Intern Recommendations Process Engineering Intern Recommendations: [facility] DISCHARGE INSTRUCTIONS: RIGHT HIP/FEMUR FRACTURE SELF CARE INSTRUCTIONS: A. You are to ambulate with a walker or crutches for approximately 6 weeks. B. You are WEIGHT BEARING TOLERATED on your operative lower extremity. C. Wear low heeled shoes with non-slip soles D. Be sure that your floors are free of things that could trip you throw rugs, electrical cords, and small objects. Avoid wet and waxed floors, especially with crutches/walker/cane. E. Try to walk several times a day with rest periods between. F. You may shower 48 hours after surgery and get the incision area wet, but DO NOT soak or submerge incision area in water. (No baths, swimming pools, hot tubs ) G. You may have a large, band-aid like dressing over your incision (Aquacel). This will remain on your incision for 7 days, and then can be removed. You CAN shower with this on. If incision is leaking through the dressing, please call the office . H. Do NOT apply soap or any ointment/lotions directly over incision. I. You may use ice as needed to operative site. SPECIAL CARE INSTRUCTIONS: VERY IMPORTANT TO READ AND REVIEW A. You may be at risk for phlebitis or blood clots. a. Wear surgical stockings (RENÉE hose) for 2 weeks after surgery to improve circulation and reduce swelling. b. LOVENOX 40mg SQ daily for 4 weeks or as directed by your physician. This is your blood thinner. B. There are a few signs you need to watch for after you are home. Call [facility] at [phone] if you experience any of the following: a. If you have a temperature of 101 degrees or higher, fever, chills. b. Sudden increase in pain in your hip not relieved by rest or pain medication. c. Any fluid or drainage from the incision; redness of the incision. d. Shortness of breath or chest pain. e. Any unanswered questions. C. Pain Medication: a. You will be prescribed pain medication upon discharge that should last till your first post-operative appointment. b. If you experience nausea and/or skin rash, discontinue this medication and contact our office for an alternative medication. c. Caution- narcotic pain medication can cause constipation. FOLLOW UP VISIT: Please call [facility] at [phone] to schedule a follow up appointment 10-14 days from the date of your surgery date. Core Measure Problem Core Measures: None
--- NOTE | 2017-12-05 23:55 | Discharge Summary ---
Discharge Summary Date of Service Dec 05, 2017. Discharge Summary Admission Date: Nov 27, 2017 at 03:02 Discharge Date: Dec 02, 2017 Discharge Disposition: detention facility ([facility]) Principal Diagnosis: pathological right femur fracture s/p ORIF Problems/Secondary Diagnoses: 1. history of paroxysmal atrial fibrillation 2. prior pulmonary embolism - 2013 3. stage 4 adenocarcinoma of lung 4. chronic pain syndrome 5. Anxiety 6. Depression 7. Hypertension 8. Hypothyroidism 9. acute/chronic anemia 10. chronic diastolic CHF 11. pulmonary HTN 12. chronic hypoxic respiratory failure on home o2 13. opiate-associated constipation 14. Eloesser flap - left 15. morbid obesity - BMI 40 16. IVC filter status Procedures: 1. b/l lower extremity venous dopplers negative for DVT 2. MRI right leg - IMPRESSION: 1. Marrow replacing metastatic lesion of the proximal femur intertrochanteric and subtrochanteric region redemonstrated measuring up to 7.7 cm in length. Subacute appearing pathologic fracture through the central to inferior margin of the mass redemonstrated without displacement. 2. Moderate periosteal edema with edema in the adjacent vastus intermedius intermedius may be reactive or reflect soft tissue component of the metastatic lesion, not definitively seen without the use of IV contrast. 3. 5.7 cm cystic lesion of the central pelvis suggests ovarian etiology. This could be correlated with pelvic ultrasound if clinically indicated. 3. ORIF of the pathological right femur fracture - Gerardo Ingram DO 4. echocardiogram - * -- Conclusions -- * Left ventricular systolic function is normal. * Grade I diastolic dysfunction, (abnormal relaxation pattern). * Right ventricular systolic pressure is elevated at 40-50mmHg. Consultations: orthopedics - Gerardo Ingram DO palliative care - Sherlyn Virk MD hematology/oncology - Sridhar Townsend DO radiation oncology - Marybeth Cuellar MD PT, OT Medication Reconciliation New Medications: Dexamethasone (Dexamethasone) 1 Mg Tab 2 MG PO DAILY for 7 Days, #14 TAB 0 Refills Enoxaparin (Enoxaparin Sodium) 40 Mg/0.4 Ml Inj 40 MG SQ QAM for 30 Days, #30 SYR 0 Refills Ferrous Sulfate (Ferrous Sulfate) 325 Mg Tab 325 MG PO BID, #60 TAB 2 Refills Folic Acid (Folic Acid) 1 Mg Tab 1 MG PO QAM for 30 Days, #30 TAB 0 Refills Pantoprazole (Pantoprazole Sodium) 40 Mg Tab 40 MG PO QAM, #30 TAB 5 Refills Polyethylene (Miralax) 17 Gm Pow 17 GM PO BID, #60 DOSE 2 Refills Senna (Senokot) 8.6 Mg Tab 17.2 MG PO QAM, #30 TAB 2 Refills Changed Medications: Diphenhydramine HCl (Diphenhydramine HCl) 25 Mg Cap 25 MG PO HS PRN for Sleep, #30 TABS 0 Refills (Changed from: 25-50 MG; Refills: ) Fentanyl (Fentanyl) 100 Mcg Tdsy 100 MCG TOP Q3D, #10 PATCH 0 Refills (Changed from: Fentanyl (Duragesic) 50 Mcg Tdsy 50 Mcg TD [id number]) Ondansetron (Ondansetron HCl) 8 Mg Tab 8 MG PO Q6H PRN for Nausea or Vomiting, #30 TAB 0 Refills (Changed from: Q4; Refills: ) Oxycodone Hcl (Roxicodone Ir) 30 Mg Tab 1 TAB PO Q4H PRN for Pain, #30 TAB 0 Refills (Changed from: Oxycodone Hcl 10 Mg Tab 10 Mg PO Q3H PRN Pain) Continued Medications: Ascorbic Acid (Vitamin C) 1,000 Mg Tab 1000 MG PO BID Bumetanide (Bumetanide) 0.5 Mg Tab 1-2 TABS PO DAILY PRN for FLUID RETENTION Celecoxib (Celecoxib) 100 Mg Cap 100 MG PO BID Cholecalciferol (Vitamin D3) 2,000 Unit Cap 6000 INTER.UNIT PO DAILY Coenzyme Q10 (Ubidecarenone) (Co Q-10) Unknown Strength Cap 2 TABS PO BID Digoxin (Digoxin) 0.25 Mg Tab 0.25 MG PO DAILY Flecainide Acetate (Flecainide Acetate) 150 Mg Tab 150 MG PO Q12 Fluticasone Propionate (Nasal) (Flonase Allergy Relief) 50 Mcg/Act Spr 2 SPRAYS DON DAILY Gabapentin (Gabapentin) 300 Mg Cap 600 MG PO TID Najhnvpgpnz-Kwduqpurycd-Qsq C- (Glucosamine Chondroitin) 1 Cap Cap 1 CAP PO BID Ipratropium-Albuterol (Combivent Respimat) 1 Aer Aer 1 PUFFS INH QID, INH Lorazepam (Lorazepam) 2 Mg Tab 2 MG PO BID, #60 TABS 0 Refills (This prescription has been renewed) Osimertinib Mesylate (Tagrisso) 80 Mg Tab 80 MG PO DAILY Probiotic Product (Probiotic) 1 Cap Cap 2 CAP PO DAILY Thyroid (Thyroid Extract) 60 Mg Tab 60 MG PO DAILY Venlafaxine Hcl (Effexor Extended Rel) 150 Mg Capcr 150 MG PO DAILY Vitamin B Complex (Vitamin B Complex) 1 Tab Tab 1 TAB PO DAILY [Magnesium Citrate] () 625 MG PO DAILY Discharge Exam Physical Exam: General Appearance: no apparent distress, + obese ENT: pharynx normal Neck: no JVD Respiratory/Chest: lungs clear, no respiratory distress, no accessory muscle use, + decreased breath sounds (left base), + pertinent finding ( Eloesser Flap - left posterior chest) Cardiovascular: regular rate, rhythm, no gallop, + systolic murmur (1-2/6 BETI LSB) Abdomen / GI: normal bowel sounds, non tender, soft, no organomegaly Extremities: + pedal edema (<1+ b/l ), + swelling (mild - right thigh ) Neurologic/Psychiatric: alert, oriented x 3 Skin: + pallor, + pertinent finding (incisions right thigh covered with dressings - clean, no drainage) Hospital Course HISTORY OF PRESENT ILLNESS: Patient is a pleasant 57yo female with history of metastatic adenocarcinoma of the lung with metastases to bone and brain, paroxysmal atrial fibrillation, anxiety, depression, HTN and PEs in 2013 presenting with severe right femur pain present in the groin and the inside of the leg along with difficulty ambulating. Patient has a known metastatic lesion at the site. Had recent PET scan which was stable. Pain started a few weeks ago when she was lifting her mother's wheelchair into her car. No relief with pain medication. Also complaining of severe bilateral LE edema over the last few weeks. The patient's presenting right femur x-rays showed a proximal femur fracture. HOSPITAL COURSE: The patient was seen in consult by Dr. Gerardo Ingram of [facility] and underwent ORIF of the pathological right proximal femur fracture on 2017. Post-operatively she did well from an orthopedic standpoint with progressive improvement in her mobility. Lovenox 40mg once daily was used for DVT prophylaxis and she will remain on such for 4 weeks post-discharge. She was seen by both hematology/oncology and radiation oncology for her stage 4 adenocarcinoma of the lung. Radiation oncology did not advise any further palliative radiation to the right leg. Oncology recommended ongoing use of Tagrisso for her stage 4 lung cancer. She will need to see Dr. Ingram within 10 days of discharge as well as Dr. Townsend from oncology within 1 week. At discharge the patient can weight-bear as tolerated to the right leg. Other issues addressed while hospitalized - 1. acute/chronic anemia - the patient has a chronic anemia with baseline hemoglobin of about 8-9. She had mild acute blood loss anemia from her surgery. She was provided folic acid and iron supplementation during her stay and was advised to stay on such post-discharge. Discharge hemoglobin was 7.7. We elected not to transfuse PRBCs as she was not symptomatic from the anemia. A repeat CBC within 5 days of discharge is advised to ensure stability. 2. chronic pain syndrome - the [place] prescription database was reviewed in detail. Pre-hospitalization the patient was on the following regimen of pain medications at home - * norco 20mg every 4 hours * oxycodone 30mg every 3 hours * fentanyl patch 62mcg q3days Ms. Car required copious amounts of IV dilaudid to remain comfortable. Thus, 2 dose adjustments to her fentanyl patch were made while here. The first was an increase to 75mcg q3days. Then, later on in her stay, the fentanyl again was increased to 100mcg q3days. Due to concerns of tylenol toxicity with the large doses of norco I recommended stopping the norco entirely and using oxycodone PRN moving forward. I suspect she will need additional adjustments when at [facility]. She was seen in consult by palliative care and they also recommended adding decadron 2mg daily. I will defer to the medical geneticist of [facility] as well as her oncologist and chemical operations specialist whether to keep her on steroids indefinitely or just short-term. 3. constipation - due to chronic opiate usage. I advised a bowel regimen of miralax and senna at a minimum. 4. edema - no DVT was found in either leg. She had no signs of decompensated CHF. She should use her bumex as needed for edema/weight gain. Total Time Spent: Greater than 30 minutes This includes examination of the patient, discharge planning, medication reconciliation, and communication with other providers. Discharge Instructions Please refer to the electronic Patient Visit Report (Discharge Instructions) for additional information. Follow-Up See Dr. Ingram or one of his associates in 10 days at [facility] for recheck of right leg See Dr. Sharri Virk, palliative care, within 5-[address] Sridhar Townsend - [facility] - within 1 week Additional Copies To Stefan Ingram D.O.; [facility]; Sherlyn Virk M.D.; Sridhar Townsend D.O.; Kiley Morton MD
== END 2017-12-02 18:30 | DRG 478 ==
LOC: EDBD 23:22 → C.EDB 23:24 → C.4E 11-27 03:02 → EDBEDREQ 11-27 03:08 → ENRESERV 11-27 03:09 → C.2T 11-27 16:47 → EDBEDREQSVC 11-27 16:48 → ENRESERV 11-27 17:00 → CANRESERV 11-28 15:12 → ENRESERV 11-28 15:12 → EDBEDREQSVC 11-28 15:25 → EDBEDREQ 11-28 15:33 → ENRESERV 11-28 15:56 → C.MSN 11-28 16:41
PROVIDERS: ADMIT Internal Medicine; ATTEND Internal Medicine
PROC: 0QS606Z Reposition Right Upper Femur with Intramedullary Internal Fixation Device, Open Approach (ICD-10-PCS; principal; 2017-11-27 15:00)
PROC: 0QB60ZX Excision of Right Upper Femur, Open Approach, Diagnostic (ICD-10-PCS; principal; 2017-11-27 15:00)
DX: M84.551A Pathological fracture in neoplastic disease, right femur, initial encounter for fracture (principal); I48.0 Paroxysmal atrial fibrillation; C79.31 Secondary malignant neoplasm of brain; C34.92 Malignant neoplasm of unspecified part of left bronchus or lung; F32.9 Major depressive disorder, single episode, unspecified; I10 Essential (primary) hypertension; E03.9 Hypothyroidism, unspecified; Z86.711 Personal history of pulmonary embolism; Z87.891 Personal history of nicotine dependence; J96.11 Chronic respiratory failure with hypoxia; I50.32 Chronic diastolic (congestive) heart failure; C79.51 Secondary malignant neoplasm of bone; Z68.41 Body mass index [BMI] 40.0-44.9, adult; I48.92 Unspecified atrial flutter; G89.3 Neoplasm related pain (acute) (chronic); F41.8 Other specified anxiety disorders; E66.01 Morbid (severe) obesity due to excess calories; Z95.828 Presence of other vascular implants and grafts; K59.03 Drug induced constipation; T40.605A Adverse effect of unspecified narcotics, initial encounter; Y92.239 Unspecified place in hospital as the place of occurrence of the external cause; R60.1 Generalized edema; D63.0 Anemia in neoplastic disease; X58.XXXA Exposure to other specified factors, initial encounter; Y92.019 Unspecified place in single-family (private) house as the place of occurrence of the external cause

== ENCOUNTER → 2017-12-05 | Outpatient (CLI) | payer OTHER ==
[~2017-12-05] MED LIST changes: -CLC100 PO; +DRGTP100 TOP; +DXM1 PO; +FLV1 PO; -FNTTP50 TD; +FRRS300 PO; -KRIL1000 PO; +LVNIS40 SQ; +MRLP17 PO; -MULTTAB58 PO; -OXYC-164 PO; +OXYC30TA PO; +PANT1TAB4 PO; +SENN-61 PO
[2017-12-05 10:14] LABS: BLOOD UREA NITROGEN 26 mg/dl (7-18); CALCIUM 8.5 mg/dl (8.5-10.1); CARBON DIOXIDE 33 mmol/L (21-32); GLUCOSE 86 mg/dl (70-99); POTASSIUM 3.9 mmol/L (3.5-5.1); SODIUM 139 mmol/L (136-145)
[2017-12-05 10:19] LABS: HEMATOCRIT 26.7 % (37-47); HEMOGLOBIN 7.6 g/dL (12.0-16.0); MEAN CELL VOLUME 82.2 fL (80-100); MEAN CORPUSCULAR HEMOGLOBIN 23.4 pg (25-34); MEAN CORPUSCULAR HGB CONC 28.5 g/dl (32-36); MEAN PLATELET VOLUME 10.8 fL (7.4-10.4); PLATELET COUNT 373 K/uL (130-400); RED CELL DISTRIBUTION WIDTH CV 17.9 % (11.5-14.5); RED CELL DISTRIBUTION WIDTH SD 53.1 fL (36.4-46.3); WHITE BLOOD COUNT 6.21 K/uL (4.8-10.8)
== END ==
LOC: C.LABUPNIT 07:51
PROVIDERS: ATTEND Nurse Practitioner Family
DX: L03.90 Cellulitis, unspecified (principal); I10 Essential (primary) hypertension